=== PATIENT | female | born 1945 | race Caucasian/White ===

== ENCOUNTER 2016-04-02 13:06 | Emergency (ER) | payer BC ==
[~2016-04-02] VITALS: Wt 82.0 kg
[~2016-04-02 13:06] MED LIST: ASPI-664 PO; DOCU-144 PO; HYDR-762 PO; IBUP800T25 PO; ICNREG IJ; LEVO50TA64 PO; LOSA100T7 PO; NEPH PO; NIFE60TA12 PO; NPH,100V SC; ONDA4TAB8 PO; PANT40TA4 PO; SEVE800T7 PO
[2016-04-02] MEDS ORDERED: IBUP400T22 PO (13:55)
[2016-04-02] MEDS ORDERED: AZIT250T94 PO (13:55)
--- NOTE | 2016-04-02 14:03 | ERD ---
ER Documentation Chief Complaint Date/Time DATE: 04/02/16 TIME: 13:56 Chief Complaint FEVER COUGH AND CONGESTION AND SORE THROAT FOR 2 MOS.NOT BETTER HPI Patient is a 70-year-old female with a past medical history of hypertension, diabetes, hypothyroidism, hyperlipidemia who presents to the emergency department with a cough, nasal congestion, sore throat 2 months. She states that her cough is dry in nature. Patient states she saw her primary care physician 4 days ago and was prescribed Robitussin with codeine. Patient states that this cough syrup is not alleviating her symptoms. Patient also reports intermittent fevers. She states that she had a temperature max 102 Fahrenheit yesterday. Patient is not taking any antipyretics. Patient reports back pain and chest wall pain with coughing only. Patient denies any chest pain at rest. He denies any shortness of breath, diaphoresis, arm pain, jaw pain, loss of consciousness. Patient denies any ear pain, abdominal pain, nausea, vomiting. No sick contacts. No recent travel. ROS All systems reviewed and are negative except as per history of present illness. Medications Home Meds Active Scripts Benzonatate* (Tessalon Perle*) 100 Mg Capsule, 100 MG PO Q8H Y for COUGH, #20 CAP Prov:CESAR CARLTON PA-C 04/02/16 Ibuprofen* (Motrin*) 400 Mg Tab, 400 MG PO Q6, #30 TAB Prov:CESAR CARLTON PA-C 04/02/16 Azithromycin* (Zithromax*) 250 Mg Tablet, 250 MG PO .ZPACK DIRECTED, #6 TAB TAKE 500 MG (2 TABS) THE FIRST DAY THEN 250 MG (1 TAB) DAYS 2-5 Prov:CESAR CARLTON PA-C 04/02/16 Ondansetron Hcl* (Zofran*) 4 Mg Tablet, 4 MG PO Q6H for NAUSEA AND/OR VOMITING, #30 TAB Prov:WILLIAM NASCIMENTO 01/30/15 Hydrocodone Bit-Acetaminophen* ([place]*) 10-325 Mg Tablet, 1 TAB PO Q6 Y for PAIN , #10 TAB Prov:VERNA GOTTLIEB MD 11/10/14 Ibuprofen* (Motrin*) 800 Mg Tab, 800 MG PO Q6H Y for PAIN AND OR ELEVATED TEMP, #30 TAB Prov:BERNARD SALINAS MD 11/06/14 Reported Medications Pantoprazole* (Pantoprazole*) 40 Mg Tablet.dr, 40 MG PO DAILY, TAB 01/30/15 Losartan Potassium* (Losartan Potassium*) 100 Mg Tablet, 100 MG PO DAILY, TAB 01/30/15 Nph, Human Insulin Isophane (Humulin N) 100 Units/Ml Vial, 11 UNIT SC HS, VIAL 10/01/14 Nph, Human Insulin Isophane (Humulin N) 100 Units/Ml Vial, 22 UNIT SC AC BREAKFAST, VIAL 10/01/14 Nifedipine* (Nifedical XL*) 60 Mg/Bottle Tab.osm.24, 60 MG PO DAILY, TAB 10/01/14 Sevelamer Carbonate* (Renvela*) 800 Mg Tablet, 0.8 GM PO WITH MEALS, TAB 10/01/14 Multivit/Ca Carb/B Cmplx/Fa* ([place]-Mike*) 1 Tab Tab, 1 TAB PO DAILY, TAB 10/01/14 Insulin Human Regular* (Insulin Human Regular (NICU Use Only)*) 1 Unit/Ml Soln, 5 UNIT IJ AC LUNCH 04/19/13 Aspirin* (Aspirin* EC) 81 Mg Tablet.dr, 81 MG PO DAILY 04/19/13 Levothyroxine Sodium (Levothroid) 50 Mcg Tablet, 50 MCG PO DAILY 04/19/13 Docusate Sodium* (Colace*) 100 Mg Capsule, 100 MG PO Q12 04/19/13 Allergies Allergies: Coded Allergies: Heparin Analogues (Verified Allergy, Unknown, 04/02/16) PMhx/Soc History of Surgery: Yes (Thyroid (half), Lumpectomy R breast, Fistula L arm) Anesthesia Reaction: No Hx Neurological Disorder: No Hx Respiratory Disorders: No Hx Cardiac Disorders: No Hx Psychiatric Problems: No Hx Miscellaneous Medical Probl: Yes (ESRD, Dialysis (T, Th, Sat), HTN, DM II, Hypothyroid, Hypercholesteremia) Hx Alcohol Use: No Hx Substance Use: No Hx Tobacco Use: No FmHx Family History: No diabetes Physical Exam Vitals Vital Signs Date Time Temp Pulse Resp B/P Pulse Ox O2 Delivery O2 Flow Rate FiO2 04/02/16 15:23 98.2 78 20 129/76 100 Room Air 04/02/16 13:19 98.8 81 22 122/59 95 Physical Exam GENERAL: Well-developed, well-nourished female. Appears in no acute distress. HEAD: Normocephalic, atraumatic. No deformities or ecchymosis. EYE: Pupils equal, round, and reactive to light. EOMs intact. No conjunctival erythema. No eye discharge. ENT: External ear without any masses or tenderness. Auditory canals clear bilaterally. TM visualized bilaterally, non-erythematous, non-bulging. Nasal mucosa pink with no discharge. Oropharynx is pink without any tonsillar erythema or exudates. No uvula deviation. No kissing tonsils. NECK: Supple. No meningismus. Normal ROM of the neck. CHEST: Tender to palpation of left chest wall. Pain is reproducible with palpation. LUNG: Clear to auscultation bilaterally. No rhonchi, wheezing, rales or coarse breath sounds. HEART: Regular rate and rhythm. No murmurs, rubs or gallops. ABDOMEN: Soft, nontender, and nondistended. Positive bowel sounds in all four quadrants. No rebound tenderness, no guarding. (-) McBurney's point tenderness. No CVA tenderness. BACK: No midline tenderness. EXTREMITES: Equal pulses bilaterally. No peripheral clubbing, cyanosis or edema. No unilateral leg swelling. NEUROLOGIC: Alert and oriented to person, place and time. Moving all four extremities. 5/5 strength in all extremities. Normal speech. Steady gait. SKIN: Normal color. Warm and dry. No rashes or lesions. Procedures/MDM ED COURSE: The patient was stable throughout ED course. I kept the patient and/or family informed of laboratory and diagnostic imaging results throughout the ED course. EKG: Read by Dr. Kelley, attending physician. EKG shows Accelerated junctional rhythm with a rate of 78 bpm. Right axis deviation. DIAGNOSTIC IMAGING: Read by radiologist. [place] [id number] Radiology Main Line: [phone] DIAGNOSTIC IMAGING REPORT Patient: VALERIA MOTLEY : 1945 Age: 70 Sex: F MR #: [id number] DOS: 04/02/16 1404 Ordering MD: CESAR CARLTON PA-C Location: [facility] Room/Bed: PROCEDURE: CHEST 1VW CLINICAL INDICATION: Chest pain TECHNIQUE: Single frontal view of the chest was obtained COMPARISON: 03/22/2013 FINDINGS: The cardiac size is mildly enlarged, stable. Aortic vascular calcifications are demonstrated. There is no pulmonary vascular congestion. The lungs are clear. No consolidation, effusion, or pneumothorax. Mild degenerative changes of the visualized osseous structures are visualized. IMPRESSION: 1. No acute cardiopulmonary process. 2. Atherosclerosis stable cardiomegaly. RPTAT:PP .Jani Juarez MD, MD Date Time Electronically viewed and signed by .Jani Juarez MD, on 04/02/2016 14:45 .V/ CC: CESAR CARLTON PA-C MEDICAL DECISION MAKING: This is a 70-year-old female who presents with a dry cough, nasal congestion, throat pain, intermittent fevers x 2 months. Vital signs were reviewed. Patient was afebrile. Patient was not hypoxic. ENT exam was normal. Lung exam is normal. Abdominal exam is normal. Chest x-ray showed No acute cardiopulmonary process. Atherosclerosis stable cardiomegaly. Given these findings, the patient's presentation is most consistent with bronchitis. It is possible that the patient's symptoms may have been improved intermittently, and now she has picked up another viral syndrome including viral URI or influenza. Given that patient has had symptoms now for 2 months, I will treat her with antibiotics empirically. I have a much lower clinical concern for pneumonia, meningitis, sinusitis, otitis externa, acute otitis media, strep pharyngitis, epiglottitis or peritonsillar abscess. PRESCRIPTIONS: Z-delmis, Ibuprofen DISCHARGE: At this time, patient is stable for discharge and outpatient management. Supportive therapies such as OTC throat lozenges, salt water gurgles, popsicles and jello discussed. I have instructed the patient to follow-up with his/her primary care physician in 1-2 days. I have instructed the patient to promptly return to the ER for any new or worsening symptoms including increased pain, swelling, fever, nausea, vomiting, weakness or difficulty breathing. The patient and/or family expressed understanding of and agreement with this plan. All questions were answered. Home care instructions were provided. Departure Diagnosis: Primary Impression: Bronchitis Condition: Stable Patient Instructions: Bronchitis, Antiobiotic Treatment (Adult) Additional Instructions: Llame al doctor MAANA y lawrence beena MATIAS PARA DENTRO DE 1-2 MONTANEZ.Dgale a la secretaria que nosotros le instruimos hacer esta matias.Avise o llame si smart condicin se empeora antes de la matias. Regresa aqui si peor o no mejor. CESAR CARLTON PA-C Apr 02, 2016 14:03
--- NOTE | 2016-04-02 14:45 | RADRPT ---
PROCEDURE: CHEST 1VW CLINICAL INDICATION: Chest pain TECHNIQUE: Single frontal view of the chest was obtained COMPARISON: 03/22/2013 FINDINGS: The cardiac size is mildly enlarged, stable. Aortic vascular calcifications are demonstrated. There is no pulmonary vascular congestion. The lungs are clear. No consolidation, effusion, or pneumothorax. Mild degenerative changes of the visualized osseous structures are visualized. IMPRESSION: 1. No acute cardiopulmonary process. 2. Atherosclerosis stable cardiomegaly. RPTAT:PP .Jani Juarez MD, Date Time Electronically viewed and signed by .Jani Juarez MD, on 04/02/2016 14:45 .V/
[2016-04-02] MEDS ORDERED: BENZ100C70 PO (14:58)
[2016-04-02 15:23] VITALS: BP 129/76; PULSE 78; RESP 20; TEMP 98.2
== END 2016-04-02 15:24 | disposition home or self-care (01) ==
LOC: FTE 13:06
DX: J20.9 Acute bronchitis, unspecified (principal); E11.9 Type 2 diabetes mellitus without complications; I12.0 Hypertensive chronic kidney disease with stage 5 chronic kidney disease or end stage renal disease; N18.6 End stage renal disease; E03.9 Hypothyroidism, unspecified; Z79.4 Long term (current) use of insulin; Z79.82 Long term (current) use of aspirin; Z99.2 Dependence on renal dialysis
CPT/HCPCS: 71010

== ENCOUNTER 2016-05-06 16:47 | Emergency (ER) | payer BC, MEDICAID ==
[~2016-05-06] VITALS: Ht 160 cm; Wt 79.0 kg
[~2016-05-06 16:47] MED LIST changes: +AZIT250T94 PO; +BENZ100C70 PO; +IBUP400T22 PO
[2016-05-06 17:20] VITALS: Ht 160 cm; Wt 79.0 kg
[2016-05-06] MEDS ORDERED: ONDANSETRON (ODT) 4 MG TAB ODT STA (17:51)
[2016-05-06] MEDS ORDERED: HYDROCODONE/APAP (10/325) TAB PO ONE (18:00)
--- NOTE | 2016-05-06 18:23 | RADRPT ---
PROCEDURE: XR Chest. CLINICAL INDICATION: Cough. TECHNIQUE: Single frontal view. COMPARISON: 04/02/2016. FINDINGS: The lungs are clear. The heart is enlarged. There is calcification in the aorta consistent with atherosclerosis. There is no pleural effusion. There is no pneumothorax. IMPRESSION: 1. Cardiomegaly and atherosclerosis. 2. Clear lungs. RPTAT: QQ .Tawanda Dubois MD, MD Date Time Electronically viewed and signed by .Tawanda Dubois MD, MD on 05/06/2016 18:23 .R/
--- NOTE | 2016-05-06 18:25 | RADRPT ---
PROCEDURE: XR Left Hip. CLINICAL INDICATION: Left hip pain. TECHNIQUE: Two views. Frontal and lateral. COMPARISON: No prior studies are available for comparison. FINDINGS: This is a limited study due to dense overlying soft tissues. There is no obvious displaced hip fracture and there is no dislocation. There is a fracture of the l eft inferior pubic ramus, age indeterminate. There are degenerative changes of the left hip with osteophytes noted. There is no lytic or blastic lesion. There is no radiopaque foreign body. IMPRESSION: 1. Limited study. 2. No obvious displaced hip fracture. 3. Fracture of the inferior pubic ramus, age indeterminate. Correlation with CT scan or MRI advised . 4. No dislocation. 5. Degenerative changes. RPTAT: QQ .Tawanda Dubois MD, Date Time Electronically viewed and signed by .Tawanda Dubois MD, on 05/06/2016 18:25 .R/
--- NOTE | 2016-05-06 18:51 | RADRPT ---
PROCEDURE: CT Brain without contrast. CLINICAL INDICATION: Trauma due to a fall. Headache. TECHNIQUE: A CT of the brain without contrast was performed utilizing axial sections from the skul l base through the vertex. The patient was scanned without intravenous contrast enhancement. Sagitta l and coronal reformatted images were obtained using the data from the axial images. Total exam DLP is 720.23 mGy-cm. CTDIvol is 45.01 mGy. One or more of the following dose reduction techniques were used: Automated exposure control, adjustment of the mA and/or kV according to patient size, use of iterative reconstruction technique. COMPARISON: None available. FINDINGS: There is normal tinsley-white matter differentiation. There is enlargement of the ventricles and subarachnoid spaces consistent with atrophy. There is decreased attenuation of the periventricular white matter consistent with microangiopathic ischemic change. There is no intracranial hemorrhage or space-occupying lesion. There are vascular calcifications consistent with atherosclerosis. There is no skull fracture or lytic lesion. There is a large right posterior parietal scalp hematom a measuring 4.5 cm in maximal dimension. IMPRESSION: 1. Atrophy. 2. Microangiopathic ischemic change. 3. Atherosclerosis. 4. No intracranial hemorrhage. 5. Large right posterior parietal scalp hematoma. 6. Otherwise unremarkable noncontrast CT scan of the brain. RPTAT: QQ .Tawanda Dubois MD, Date Time Electronically viewed and signed by .Tawanda Dubois MD, on 05/06/2016 18:50 .R/
[2016-05-06] MEDS ORDERED: METO50TA16 PO (19:45)
[2016-05-06] MEDS ORDERED: CLON-379 PO (19:46)
[2016-05-06] MEDS ORDERED: NIFE90TA11 PO (19:46)
[2016-05-06] MEDS ORDERED: HYDR-902 PO (19:58)
[2016-05-06 20:03] VITALS: BP 169/75; PULSE 71; RESP 18; TEMP 98.6
--- NOTE | 2016-05-06 20:43 | ERD ---
ER Documentation Chief Complaint Date/Time DATE: 05/06/16 TIME: 20:40 Chief Complaint FELL LAST TUESDAY SECONDARY TO SYNCOPE,OCCIPITAL AREA BUMP,LEFT HIP PAIN. HPI Patient is a 70-year-old female with dialysis, diabetes, and hypertension who presents with a fall. The patient fell on Tuesday. She had a bump to the back of her head. She now has a headache as well. She also has hip pain for 1 year ago. She had a cough as well. She fell on Tuesday when she was mopping a floor and it was a slip and fall. She is on 81 mg aspirin daily. She took Tylenol for pain. She has not called the primary doctor as of yet. Her primary doctor is Dr. Godoy. She had a full dialysis today. Upon review of old medical records this is the patient's seventh visit to the ER since 2013. ROS All systems reviewed and are negative except as per history of present illness. Medications Home Meds Active Scripts Hydrocodone/Acetaminophen ([place] 10-325 Tablet) 1 Each Tablet, 1 TAB PO Q6H Y for PAIN, #7 TAB Prov:BESSY MARIEE MD 05/06/16 Reported Medications Clonidine Hcl* (Clonidine Hcl*) 0.1 Mg Tab, 0.1 MG PO Q6 Y for PRN, TAB 05/06/16 Nifedipine* (Nifedipine ER*) 90 Mg Tablet.er, 90 MG PO DAILY, TAB 05/06/16 Metoprolol Succinate* (Toprol XL*) 50 Mg Tab.er.24h, 50 MG PO QPM, #30 TAB 05/06/16 Losartan Potassium* (Losartan Potassium*) 100 Mg Tablet, 100 MG PO DAILY, TAB 01/30/15 Nph, Human Insulin Isophane (Humulin N) 100 Units/Ml Vial, 13 UNIT SC HS, VIAL 10/01/14 Multivit/Ca Carb/B Cmplx/Fa* ([place]vern-Mike*) 1 Tab Tab, 1 TAB PO DAILY, TAB 10/01/14 Insulin Human Regular* (Insulin Human Regular (NICU Use Only)*) 1 Unit/Ml Soln, 3 UNIT IJ AC LUNCH DINNER 04/19/13 Aspirin* (Aspirin* EC) 81 Mg Tablet.dr, 81 MG PO DAILY 04/19/13 Levothyroxine Sodium (Levothroid) 50 Mcg Tablet, 50 MCG PO DAILY 04/19/13 Docusate Sodium* (Colace*) 100 Mg Capsule, 100 MG PO DAILY 04/19/13 Discontinued Reported Medications Pantoprazole* (Pantoprazole*) 40 Mg Tablet.dr, 40 MG PO DAILY, TAB 01/30/15 Nph, Human Insulin Isophane (Humulin N) 100 Units/Ml Vial, 22 UNIT SC AC BREAKFAST, VIAL 10/01/14 Nifedipine* (Nifedical XL*) 60 Mg/Bottle Tab.osm.24, 60 MG PO DAILY, TAB 10/01/14 Sevelamer Carbonate* (Renvela*) 800 Mg Tablet, 0.8 GM PO WITH MEALS, TAB 10/01/14 Discontinued Scripts Benzonatate* (Tessalon Perle*) 100 Mg Capsule, 100 MG PO Q8H Y for COUGH, #20 CAP Prov:CESAR CARLTON PA-C 04/02/16 Ibuprofen* (Motrin*) 400 Mg Tab, 400 MG PO Q6, #30 TAB Prov:CESAR CARLTON PA-C 04/02/16 Azithromycin* (Zithromax*) 250 Mg Tablet, 250 MG PO .ZPACK DIRECTED, #6 TAB TAKE 500 MG (2 TABS) THE FIRST DAY THEN 250 MG (1 TAB) DAYS 2-5 Prov:CESAR CARLTON PA-C 04/02/16 Ondansetron Hcl* (Zofran*) 4 Mg Tablet, 4 MG PO Q6H for NAUSEA AND/OR VOMITING, #30 TAB Prov:WILLIAM NASCIMENTO 01/30/15 Hydrocodone Bit-Acetaminophen* ([place]*) 10-325 Mg Tablet, 1 TAB PO Q6 Y for PAIN , #10 TAB Prov:VERNA GOTTLIEB MD 11/10/14 Ibuprofen* (Motrin*) 800 Mg Tab, 800 MG PO Q6H Y for PAIN AND OR ELEVATED TEMP, #30 TAB Prov:BERNARD SALINAS MD 11/06/14 Allergies Allergies: Coded Allergies: Heparin Analogues (Verified Allergy, Unknown, 05/06/16) PMhx/Soc History of Surgery: Yes (Thyroid (half), Lumpectomy R breast, Fistula L arm) Anesthesia Reaction: No Hx Neurological Disorder: No Hx Respiratory Disorders: No Hx Cardiac Disorders: No Hx Psychiatric Problems: No Hx Miscellaneous Medical Probl: Yes (ESRD, Dialysis (T, Th, Sat), HTN, DM II, Hypothyroid, Hypercholesteremia) Hx Alcohol Use: No Hx Substance Use: No Hx Tobacco Use: No Smoking Status: Never smoker FmHx Family History: No diabetes Physical Exam Vitals Vital Signs Date Time Temp Pulse Resp B/P Pulse Ox O2 Delivery O2 Flow Rate FiO2 05/06/16 20:03 98.6 71 18 169/75 98 Room Air 05/06/16 17:20 98.6 76 18 161/71 98 Physical Exam Const: No acute distress Head: Hematoma to the posterior scalp with tenderness to palpation Eyes: Normal Conjunctiva ENT: Normal External Ears, Nose and Mouth. Neck: Full range of motion..~ No meningismus. Resp: Clear to auscultation bilaterally Cardio: Regular rate and rhythm, no murmurs Abd: Soft, non tender, non distended. Normal bowel sounds Skin: No petechiae or rashes Back: No midline or flank tenderness Ext: No cyanosis, or edema Neur: Awake and alert Psych: Normal Mood and Affect Results 24 hrs Current Medications Medications (Trade) Dose Ordered Sig/Leland Route PRN Reason Start Time Stop Time Status Last Admin Dose Admin Acetaminophen/ Hydrocodone Bitart ([place] (10/325)) 1 tab ONCE ONCE PO 05/06/16 18:00 05/06/16 18:01 DC 05/06/16 18:01 Ondansetron HCl (Zofran Odt) 4 mg ONCE STAT ODT 05/06/16 17:51 05/06/16 17:53 DC 05/06/16 18:01 Procedures/MDM CT brain negative per radiology. X-ray of the hip negative for acute fracture per radiology. Chest x-ray shows no pneumonia or pneumothorax per radiology. Patient is a 70-year-old female who presents after a slip and fall. CT brain shows no intracranial hemorrhage or skull fracture. I believe she has a concussion. She also has a hematoma of the scalp. There was no syncope. X- ray of the hip shows no acute fracture that would require surgery. Chest x-ray shows no pneumonia or pneumothorax. At this point I believe outpatient management is appropriate. The patient will need to follow-up closely with her primary doctor within 24-48 hours. She will be given a short course of [place] for pain. She can return for any worsening symptoms. At this point I doubt intracranial hemorrhage, mass, or meningitis. Departure Diagnosis: Primary Impression: Hematoma Additional Impressions: Concussion Encounter type: initial encounter Loss of consciousness presence/duration: without LOC Qualified Code: S06.0X0A - Concussion, without loss of consciousness, initial encounter Fall Encounter type: initial encounter Qualified Code: W19.XXXA - Fall, initial encounter Condition: Fair Patient Instructions: After a Concussion, Fall, Mechanical Additional Instructions: Llame al doctor nombrado abajo (Referral Sources) MAANA y lawrence beena MATIAS PARA DENTRO DE BEENA SEMANA. Dgale a la secretaria que nosotros le instruimos hacer esta matias.Avise o llame si smart condicin se empeora antes de la matias. BESSY MARIEE MD May 06, 2016 20:43
== END 2016-05-06 20:05 | disposition home or self-care (01) ==
LOC: E/R 16:47
DX: S00.03XA Contusion of scalp, initial encounter (principal); S06.0X0A Concussion without loss of consciousness, initial encounter; I12.0 Hypertensive chronic kidney disease with stage 5 chronic kidney disease or end stage renal disease; N18.6 End stage renal disease; E11.9 Type 2 diabetes mellitus without complications; E03.9 Hypothyroidism, unspecified; W01.0XXA Fall on same level from slipping, tripping and stumbling without subsequent striking against object, initial encounter; Y92.9 Unspecified place or not applicable; Z79.82 Long term (current) use of aspirin; Z99.2 Dependence on renal dialysis; Z79.4 Long term (current) use of insulin
CPT/HCPCS: 70450; 71010; 73510; Z7610

== ENCOUNTER 2016-06-10 16:01 | Emergency (ER) | payer SELFPAY ==
[~2016-06-10] VITALS: Wt 76.5 kg
[~2016-06-10 16:01] MED LIST changes: -AZIT250T94 PO; -BENZ100C70 PO; +CLON-379 PO; -HYDR-762 PO; +HYDR-902 PO; -IBUP400T22 PO; -IBUP800T25 PO; +METO50TA16 PO; -NIFE60TA12 PO; +NIFE90TA11 PO; -ONDA4TAB8 PO; -PANT40TA4 PO; -SEVE800T7 PO
== END 2016-06-11 01:37 | disposition left against medical advice (07) ==
LOC: E/R 16:01
DX: Z53.21 Procedure and treatment not carried out due to patient leaving prior to being seen by health care provider (principal)

== ENCOUNTER 2016-06-14 17:08 | Emergency (ER) | payer SELFPAY ==
[~2016-06-14] VITALS: Ht 152.4 cm; Wt 78.5 kg
[2016-06-14 17:25] VITALS: Ht 152.4 cm; Wt 78.5 kg
== END 2016-06-14 22:16 | disposition left against medical advice (07) ==
LOC: E/R 17:08
DX: Z53.21 Procedure and treatment not carried out due to patient leaving prior to being seen by health care provider (principal)

== ENCOUNTER 2016-06-16 09:25 | Inpatient (IN) | payer BC ==
[~2016-06-16] VITALS: Ht 154.9 cm; Wt 78.3 kg
[2016-06-16] MEDS ORDERED: ONDANSETRON 4 MG INJ IV STA (09:54)
[2016-06-16] MEDS ORDERED: SOD CHLORIDE 0.9% 500 ML IV STA (09:54)
[2016-06-16] MEDS ORDERED: morphine 2 MG INJ IV STA (09:54)
[2016-06-16 11:00] LABS: ADD SCAN DIFF NO
[2016-06-16 11:09] LABS: BASOPHIL # 0.1 10^3/ul (0.0-0.1); BASOPHILS % 0.7 % (0.0-2.0); EOSINOPHILS # 1.4 10^3/ul (0.0-0.5); EOSINOPHILS % 17.7 % (0.0-7.0); HEMATOCRIT 34.1 % (37.0-47.0); HEMOGLOBIN 11.2 g/dl (12.0-16.0); LYMPHOCYTES # 1.8 10^3/ul (0.8-2.9); LYMPHOCYTES % 22.8 % (15.0-51.0); MEAN CORPUSCULAR HEMOGLOBIN 30.6 pg (29.0-33.0); MEAN CORPUSCULAR HGB CONC 32.8 g/dl (32.0-37.0); MEAN CORPUSCULAR VOLUME 93.2 fl (82.0-101.0); MEAN PLATELET VOLUME 9.2 fl (7.4-10.4); MONOCYTE # 0.4 10^3/ul (0.3-0.9); MONOCYTES % 5.6 % (0.0-11.0); NEUTROPHIL # 4.1 10^3/ul (1.6-7.5); NEUTROPHILS % 52.9 % (39.0-77.0); PLATELET COUNT 205 10^3/UL (140-415); RED BLOOD COUNT 3.66 10^6/ul (4.20-5.40); RED CELL DISTRIBUTION WIDTH 15.2 % (11.5-14.5); WHITE BLOOD COUNT 7.7 10^3/ul (4.8-10.8)
[2016-06-16 11:20] LABS: ALBUMIN 4.3 g/dl (3.3-4.9)
[2016-06-16 11:21] LABS: CHLORIDE 90 mmol/L (97-110); POTASSIUM 4.8 mmol/L (3.5-5.1); SODIUM 133 mmol/L (135-144)
[2016-06-16 11:23] LABS: ANION GAP 22 (8-16); BILIRUBIN,INDIRECT 0.2 mg/dl (0-1.1); BILIRUBIN,TOTAL 0.2 mg/dl (0.2-1.3); CARBON DIOXIDE 26 mmol/L (21-31); CREATININE 8.08 mg/dl (0.44-1.00)
[2016-06-16 11:24] LABS: ALANINE AMINOTRANSFERASE 15 IU/L (13-69); ALBUMIN/GLOBULIN RATIO 1.13; ALKALINE PHOSPHATASE 82 IU/L (42-121); ASPARTATE AMINO TRANSFERASE 28 IU/L (15-46); BLOOD UREA NITROGEN 44 mg/dl (7-20); CALCIUM 9.6 mg/dl (8.4-10.2); GLUCOSE 176 mg/dl (70-220); INR 1.03; PARTIAL THROMBOPLASTIN TIME 29.9 Sec (25.0-35.0); PROTIME 13.5 Sec (12.2-14.2); PT RATIO 1.1; TOTAL PROTEIN 8.1 g/dl (6.1-8.1)
[2016-06-16 11:36] LABS: TROPONIN-I < 0.012 ng/ml (0.00-0.12)
[2016-06-16] MEDS ORDERED: LABETALOL HCL 20MG INJ IV ONE (12:30)
--- NOTE | 2016-06-16 12:43 | RADRPT ---
PROCEDURE: CT Abdomen and Pelvis without contrast. CLINICAL INDICATION: Upper abdominal pain. TECHNIQUE: CT scan of the abdomen and pelvis without contrast was performed on a multidetector hig h-resolution CT scanner. The patient was scanned without intravenous contrast. Coronal and sagittal reformatted images were obtained from the axial source images. Images were reviewed on a high-resol [employer] PACS workstation. The total exam CTDI equals 20.70 mGy and the total exam DLP equals 1222.35 m Gy-cm. One or more of the following dose reduction techniques were used: Automated exposure control. Adjustment of the mA and/or kV according to patient size. Use of iterative reconstruction technique. COMPARISON: CT abdomen and pelvis 01/30/2015 FINDINGS: CT abdomen: The lung bases are clear. There is mild cardiomegaly with mild circumferential pericardial effusion . The liver is normal in size and density without focal mass or intrahepatic biliary dilatation. T he spleen is normal in size and homogeneous in density. The stomach is partially collapsed, but is grossly unremarkable. The pancreas as visualized is normal. The gallbladder is unremarkable. There is no evidence for biliary dilatation. The adrenal glands are symmetric and normal. There is sign ificant atrophy of bilateral kidneys. No hydronephrosis. There is approximately 1.4 cm cyst mid po le right kidney. The aorta is of normal caliber. There is no retroperitoneal lymphadenopathy. The dennys hepatis reg ion is clear. The bowel and mesentery, as visualized, are equally unremarkable. Scattered punctate calcifications are again identified throughout the mesentery likely related to old granulomatous dis ease. CT pelvis: The small bowel loops situated within the pelvis are unremarkable. The pelvic organs are normal. T he pelvic sidewalls and inguinal regions are clear. The sigmoid colon and rectum are unremarkable. No mass, lymphadenopathy, or free fluid is seen. No acute inflammation is seen. There is a promine nt Schmorl's node in the inferior endplate of L3. The surrounding osseous structures are remarkable for degenerative spondylosis of the spine. there is hemangioma of T10 vertebral body. No osteolyti c or osteoblastic lesion is detected. There is old healed fracture of the inferior left pubic ramus. IMPRESSION: 1. No mass, lymphadenopathy, or focal acute inflammatory process is identified. 2. Atrophic bilateral kidneys with no hydronephrosis. 3. Mild cardiomegaly with pericardial effusion, increased compared to prior. RPTAT: BB .Marleny Dey MD, MD Date Time Electronically viewed and signed by .Marleny Dey MD, MD on 06/16/2016 12:42 .O/
--- NOTE | 2016-06-16 13:18 | RADRPT ---
PROCEDURE: Chest Radiograph. CLINICAL INDICATION: Epigastric pain. TECHNIQUE: Single frontal chest radiograph. COMPARISON: Chest radiograph 05/06/2016 FINDINGS: The heart is magnified and likely enlarged. Lung volumes are decreased in there is moderate basilar atelectasis. No confluent or lobar infiltrate is seen. There is no pleural effusion. The bones are intact. IMPRESSION: 1. Low lung volumes with basilar atelectasis. 2. Cardiomegaly. RPTAT: KK .Jersey Spencer MD, MD Date Time Electronically viewed and signed by .Jersey Spencer MD, on 06/16/2016 13:18 .B/
--- NOTE | 2016-06-16 13:19 | RADRPT ---
PROCEDURE: Left foot series. CLINICAL INDICATION: Left foot pain after fall TECHNIQUE: Three views of the left foot are available for review. COMPARISON: None available FINDINGS: There is normal mineralization and alignment of the bones of the left foot. Lisfranc's joint appear s intact. There is a mild to the displaced fracture of the base of the second proximal phalanx. No other fractures are identified.. Joint spaces are well maintained. No osteophytes or erosions are seen. There is mild diffuse soft tissue swelling . IMPRESSION: 1. Second proximal phalanx fracture. 2. Diffuse soft tissue swelling. RPTAT: KK .Jersey Spencer MD, MD Date Time Electronically viewed and signed by .Jersey Spencer MD, on 06/16/2016 13:19 .B/
[2016-06-16] MEDS ORDERED: hydrALAzine 20 MG INJ IV ONE (15:30)
--- NOTE | 2016-06-16 15:51 | ERA ---
ER Documentation Chief Complaint Date/Time DATE: 06/16/16 TIME: 15:49 Chief Complaint abd pain x 1 week , lt foot pain s/p fall on tuesday HPI This 70-year-old female presents with epigastric pain for one week. Pain is higher up on her abdomen or lower chest area. It is not made much worse by palpation. Is described as a deep pain that does not radiate. She denies shortness of breath occasionally does have nausea. She also complains of left foot pain worse in her second toe after she fell 2 days ago. There is now bruising on the underside of her forefoot. It hurts when she walks. ROS All systems reviewed and are negative except as per history of present illness. Medications Home Meds Active Scripts Hydrocodone/Acetaminophen ([place] 10-325 Tablet) 1 Each Tablet, 1 TAB PO Q6H Y for PAIN, #7 TAB Prov:BESSY MARIEE MD 05/06/16 Reported Medications Clonidine Hcl* (Clonidine Hcl*) 0.1 Mg Tab, 0.1 MG PO Q6 Y for PRN, TAB 05/06/16 Nifedipine* (Nifedipine ER*) 90 Mg Tablet.er, 90 MG PO DAILY, TAB 05/06/16 Metoprolol Succinate* (Toprol XL*) 50 Mg Tab.er.24h, 50 MG PO QPM, #30 TAB 05/06/16 Losartan Potassium* (Losartan Potassium*) 100 Mg Tablet, 100 MG PO DAILY, TAB 01/30/15 Nph, Human Insulin Isophane (Humulin N) 100 Units/Ml Vial, 13 UNIT SC HS, VIAL 10/01/14 Multivit/Ca Carb/B Cmplx/Fa* ([place]-Mike*) 1 Tab Tab, 1 TAB PO DAILY, TAB 10/01/14 Insulin Human Regular* (Insulin Human Regular (NICU Use Only)*) 1 Unit/Ml Soln, 3 UNIT IJ AC LUNCH DINNER 04/19/13 Aspirin* (Aspirin* EC) 81 Mg Tablet.dr, 81 MG PO DAILY 04/19/13 Levothyroxine Sodium (Levothroid) 50 Mcg Tablet, 50 MCG PO DAILY 04/19/13 Docusate Sodium* (Colace*) 100 Mg Capsule, 100 MG PO DAILY 04/19/13 Allergies Allergies: Coded Allergies: Heparin Analogues (Verified Allergy, Unknown, 05/06/16) PMhx/Soc History of Surgery: Yes (Thyroid (half), Lumpectomy R breast, Fistula L arm) Anesthesia Reaction: No Hx Neurological Disorder: No (HYPOTHYROID) Hx Respiratory Disorders: No Hx Cardiac Disorders: Yes (HTN, DM, HIGH CHOLESTEROL) Hx Psychiatric Problems: No Hx Miscellaneous Medical Probl: Yes (ESRD, Dialysis (T, Th, Sat)) Hx Alcohol Use: No Hx Substance Use: No Hx Tobacco Use: No Smoking Status: Never smoker Physical Exam Vitals Vital Signs Date Time Temp Pulse Resp B/P Pulse Ox O2 Delivery O2 Flow Rate FiO2 06/16/16 15:39 70 18 229/99 97 Room Air 06/16/16 13:37 64 18 241/105 95 Room Air 06/16/16 09:28 98.2 69 18 239/100 97 Physical Exam Const: [] No distress Head: Atraumatic Eyes: Normal Conjunctiva ENT: Normal External Ears, Nose and Mouth. Neck: Full range of motion..~ No meningismus. Resp: Clear to auscultation bilaterally Cardio: Regular rate and rhythm, no murmurs Abd: Soft, non tender, non distended. Normal bowel sounds Skin: No petechiae or rashes Back: No midline or flank tenderness Ext: No cyanosis, or edema Neur: Awake and alert and oriented 3, no focal deficits Psych: Normal Mood and Affect Result Diagram: 06/16/16 1031 06/16/16 1031 Results 24 hrs Laboratory Tests Test 06/16/16 10:31 06/16/16 10:54 White Blood Count 7.710^3/ul Red Blood Count 3.6610^6/ul Hemoglobin 11.2g/dl Hematocrit 34.1% Mean Corpuscular Volume 93.2fl Mean Corpuscular Hemoglobin 30.6pg Mean Corpuscular Hemoglobin Concent 32.8g/dl Red Cell Distribution Width 15.2% Platelet Count 49577^3/UL Mean Platelet Volume 9.2fl Neutrophils % 52.9% Lymphocytes % 22.8% Monocytes % 5.6% Eosinophils % 17.7% Basophils % 0.7% Nucleated Red Blood Cells % 0.0/100WBC Neutrophils # 4.110^3/ul Lymphocytes # 1.810^3/ul Monocytes # 0.410^3/ul Eosinophils # 1.410^3/ul Basophils # 0.110^3/ul Nucleated Red Blood Cells # 0.010^3/ul Prothrombin Time 13.5Sec Prothrombin Time Ratio 1.1 INR International Normalized Ratio 1.03 Activated Partial Thromboplast Time 29.9Sec Sodium Level 133mmol/L Potassium Level 4.8mmol/L Chloride Level 90mmol/L Carbon Dioxide Level 26mmol/L Anion Gap 22 Blood Urea Nitrogen 44mg/dl Creatinine 8.08mg/dl Glucose Level 176mg/dl Lactic Acid Level 1.5mmol/L Calcium Level 9.6mg/dl Total Bilirubin 0.2mg/dl Direct Bilirubin 0.00mg/dl Indirect Bilirubin 0.2mg/dl Aspartate Amino Transf (AST/SGOT) 28IU/L Alanine Aminotransferase (ALT/SGPT) 15IU/L Alkaline Phosphatase 82IU/L Troponin I < 0.012ng/ml Total Protein 8.1g/dl Albumin 4.3g/dl Globulin 3.80g/dl Albumin/Globulin Ratio 1.13 Lipase 53U/L B-Type Natriuretic Peptide [id number]/ML Current Medications Medications (Trade) Dose Ordered Sig/Leland Route PRN Reason Start Time Stop Time Status Last Admin Dose Admin Sodium Chloride (NS) 500 ml @ 500 mls/hr Q1H STAT IV 06/16/16 09:54 06/16/16 10:53 DC 06/16/16 10:36 Morphine Sulfate (morphine) 2 mg ONCE STAT IV 06/16/16 09:54 06/16/16 09:56 DC 06/16/16 10:37 Ondansetron HCl (Zofran Inj) 4 mg ONCE STAT IV 06/16/16 09:54 06/16/16 09:56 DC 06/16/16 10:36 Labetalol HCl (Labetalol) 20 mg ONCE ONCE IV 06/16/16 12:30 06/16/16 12:31 DC 06/16/16 12:49 Hydralazine HCl (Apresoline) 15 mg ONCE ONCE IV 06/16/16 15:30 06/16/16 15:31 DC 06/16/16 15:35 Aspirin (Halfprin) 81 mg DAILY PO 06/16/16 16:00 UNV Clonidine (Catapres) 0.1 mg Q6 PRN PO SBP>150 mm Hg 06/16/16 16:00 UNV Docusate Sodium (Colace) 100 mg DAILY PO 06/17/16 09:00 UNV Acetaminophen/ Hydrocodone Bitart ([place] (10/325)) 1 tab Q6H PRN PO Moderate PAIN 06/16/16 16:00 UNV Levothyroxine Sodium (Synthroid) 50 mcg DAILY PO 06/17/16 09:00 UNV Losartan Potassium (Cozaar) 100 mg DAILY PO 06/16/16 16:00 UNV Metoprolol Succinate (Toprol Xl) 50 mg QPM PO 06/16/16 21:00 UNV Multivit/Ca Carb/ B Cmplx/FA/Prenat ([place]-Mike) 1 tab DAILY PO 06/17/16 09:00 UNV Nifedipine (Procardia Xl) 90 mg DAILY PO 06/16/16 16:00 UNV Procedures/MDM Epigastric pain which likely cholelithiasis chest pain in a patient with severe hypertension and a pericardial effusion. Also has a close fracture of her toe. 20 of labetalol IV had no effect on her blood pressure. 15 mg of hydralazine did successfully lower her blood pressure. Should not take her blood pressure medication this morning but her family states that her blood pressure been running very high lately. The patient and her family also had no knowledge of any fluid around the heart at any point in the past. Patient had had dialysis yesterday but still has a very elevated BNP. I believe that she would deathly benefit from admission and further workup for her initial cardiac workup is negative for acute cardiac injury. I ordered an echo emergency room. The patient went to the Stock Room Manager as come back with echo has not been read yet. Brennan and she was placed on the patient's foot for her broken toe. She has no pain currently after she was given a small dose of morphine. She is also given Zofran initially for nausea. Spoke with Dr. Odell who requested the patient is admitted under , to telemetry for further evaluation. EKG interpretation: Normal sinus rhythm rate of 66, normal axis, no ST or T- wave changes concerning for acute ischemia front desk monitor interpretation: Normal sinus rhythm without arrhythmia Chest x-ray interpretation: Cardiomegaly without any other acute process. I see no widened mediastinum, no pneumothorax, no felicitas infiltrates, no fractures X-ray interpretation: Second proximal phallus fracture CT head on pelvis interpretation: Bilateral atrophic kidneys, no obstruction, no free air, no fractures Critical care time 35 minutes: This includes treatment of hypertensive emergency and a patient with chest pain again enlarged. Carlos effusion, use of tobacco is medications labetalol and hydralazine, multiple visits the patient's bedside to reassess status and check blood pressure, chart review, discussion with patient family and admitting doctor. This does not include any billable procedures Departure Diagnosis: Primary Impression: Epigastric pain Additional Impressions: Pericardial effusion Hyponatremia Hypertensive crisis Atrophy of kidney Fractured toe Condition: Serious DESTINEY DUPONT DO June 16, 2016 15:51
[2016-06-16] MEDS ORDERED: ONDANSETRON 4 MG INJ IV PRN ×2 (16:00)
[2016-06-16] MEDS ORDERED: HYDROCODONE/APAP (10/325) TAB PO PRN (16:00)
[2016-06-16] MEDS ORDERED: hydrALAzine 20 MG INJ IV PRN (16:00)
[2016-06-16] MEDS ORDERED: morphine 2 MG INJ IV PRN (16:00)
[2016-06-16] MEDS ORDERED: LOSARTAN 50 MG TAB PO SCH (16:00)
[2016-06-16] MEDS ORDERED: NACL 0.9% 3 ML SYG IV SCH (16:00)
[2016-06-16] MEDS ORDERED: ALBUTEROL/IPRATROPIUM (NEB) 3 ML AMP HHN PRN (16:00)
[2016-06-16] MEDS ORDERED: MAGNESIUM HYDROXIDE 30ML CUP PO PRN (16:00)
[2016-06-16] MEDS ORDERED: BISACODYL (EC) 5 MG TAB PO PRN (16:00)
[2016-06-16] MEDS ORDERED: BISACODYL 10 MG SUPP PR PRN (16:00)
[2016-06-16] MEDS ORDERED: ACETAMINOPHEN 325 MG TAB PO PRN ×2 (16:00)
[2016-06-16] MEDS ORDERED: NA PHOSPHATE/BIPHOS 133 ML ENEMA PR PRN (16:00)
[2016-06-16] MEDS ORDERED: ZOLPIDEM 5 MG TAB PO PRN (16:00)
--- NOTE | 2016-06-16 16:05 | RADRPT ---
Echocardiogram Report Patient Name: VALERIA MOTLEY Gender: Female Date: 1945 Study Date: 16-Jun-2016 [employer] Technician: Jase Chowdhury RDCS Location: EKG Ref. Physician: DESTINEY DUPONT Quality: Good Procedures: Transthoracic echocardiogram with complete 2D, M-Mode, and doppler examination. Indications: Pericardial Effusion. 2D/M Mode Doppler Measurement Value Normal Ranges Measurement Value Normal Ranges LVIDd 2D 5.8 3.5 - 5.6 cm LVOT Peak Joni 1.0 m/sec LVIDs 2D 2.8 2.1 - 4.1 cm LVOT Peak PG 3.8 mmHg LVPWd 2D 1.1 0.6 - 1.1 cm MV E Peak Joni 0.8 m/sec IVSd 2D 1.1 0.6 - 1.1 cm MV A Peak Joni 1.1 m/sec AoR Diam 2D 2.9 2.0 - 3.7 cm MV E/A 0.7 EDV 2D 163.8 cm3 MV Decel Time 226 msec ESV 2D 21.3 cm3 MV Decel [place] 3 LA Dimen 2D 3.6 2.3 - 4.0 cm MV E/A 0.7 TR Peak Joni 2.8 m/sec TR Peak PG 30.8 mmHg RVSP 34.0 mmHg Findings Left Ventricle: Normal left ventricular systolic function. Normal left ventricular cavity size. Mild concentric left ventricular hypertrophy. Ejection fraction is visually estimated at 65 %. Tissue Doppler/Mitral Doppler indices are consistent with impaired relaxation (Stage I diastolic dysfunction). Right Ventricle: Normal right ventricular size. Normal right ventricular systolic function. Left Atrium: The left atrium is normal in size. Right Atrium: The right atrium is normal in size. Mitral Valve: Normal appearance and function of the mitral valve with trace physiologic regurgitation. Aortic Valve: No hemodynamically significant aortic stenosis by doppler. Aortic cusps appear mildly calcified. Mild aortic valve regurgitation. Tricuspid Valve: Normal appearance and function of the tricuspid valve with trace physiologic regurgitation. Estimated peak PA systolic pressure 34 mmHg. Pulmonic Valve: Normal pulmonic valve appearance. Pericardium: Small pericardial effusion. Aorta: Normal aortic root. IVC: Normal size and normal respiratory collapse consistent with normal right atrial pressure. Conclusions Normal left ventricular systolic function. Normal left ventricular cavity size. Mild concentric left ventricular hypertrophy. Ejection fraction is visually estimated at 65 %. Tissue Doppler/Mitral Doppler indices are consistent with impaired relaxation (Stage I diastolic dysfunction). Normal right ventricular size. Normal right ventricular systolic function. The left atrium is normal in size. The right atrium is normal in size. No significant valvular stenosis or regurgitation seen. Small pericardial effusion. Electronically Signed By: Amari Baez 16-Jun-2016 16:04:22 -0700 Patient Name: VALERIA MOTLEY Study Date: 16-Jun-2016 [id number]
[2016-06-16] MEDS ORDERED: GLUCOSE GEL 15 GRAM TUBE BUCCAL PRN (16:30)
[2016-06-16] MEDS ORDERED: DEXTROSE 50% 50 ML SYRINGE IV PRN ×2 (16:30)
[2016-06-16] MEDS ORDERED: GLUCAGON 1 MG INJ IM PRN (16:30)
[2016-06-16] MEDS ORDERED: GLUCOSE GEL 15 GRAM TUBE PO PRN ×2 (16:30)
[2016-06-16 17:01] LABS: ADD UMIC YES; URINE BILIRUBIN (Dip) NEGATIVE (NEGATIVE); URINE BLOOD (Dip) 1+ (NEGATIVE); URINE COLOR LT. YELLOW (YELLOW); URINE KETONES (Dip) NEGATIVE (NEGATIVE); URINE LEUKOCYTE ESTERASE (Dip) NEGATIVE (NEGATIVE); URINE NITRITE (Dip) NEGATIVE (NEGATIVE); URINE TOTAL PROTEIN (Dip) 4+ (NEGATIVE); URINE UROBILINOGEN (Dip) 0.2 E.U./dL (0.1-1.0)
--- NOTE | 2016-06-16 17:08 | CONS ---
Date/Time of Note Date/Time of Note DATE: 06/16/16 TIME: 17:01 Assessment/Plan Assessment/Plan Additional Assessment/Plan Small pericardial effusion Hypertension urgency Preserved ejection fraction Abdominal pain End-stage renal disease on hemodialysis Hypertension Diabetes Obesity -Patient with incidental pericardial effusion seen on CT abdomen pelvis. Echocardiogram with small effusion with no evidence of tamponade. No cardiac intervention necessary at the current time. Patient's blood pressure has been uncontrolled. Diet compliance could likely be contributing. Would change metoprolol to Coreg for better blood pressure control. Changed Cozaar to twice daily dosing. If blood pressure still not well controlled, could change Procardia to twice daily dosing as well as up titrate medication dosages. Continue aspirin and statin therapy if no contraindication. Consultation Date/Type/Reason Admit Date/Time Type of Consultation: cv Reason for Consultation Pericardial effusion Hx of Present Illness This is a 70-year-old female past medical history of end-stage renal disease on hemodialysis, hypertension, diabetes who presents with abdominal pain and foot pain. Patient had a recent fall and with pain in her foot. Patient also complaining of recurrent episodes of abdominal pain. Symptoms are usually worse at nighttime and better during the daytime. She does complain of constipation. He denies any shortness of breath, chest pain, dizziness or lightheadedness. She does admit that her blood pressure has been uncontrolled over the past week. She states she is compliant with medications and hemodialysis with unclear compliance with diet and restricted sodium intake. Patient underwent CT abdomen pelvis and found incidental pericardial effusion and for this reason cardiology consultation was requested. 12 point review of systems was performed with all pertinent positives and negatives mentioned above and all else is negative Past Medical History Medical History: diabetes, high cholesterol, hypertension, renal disease Past Surgical History Past Surgical Hx: other (av fistula) Family History Significant Family History: no pertinent family hx Social History Smoking Status: Never smoker Other Social History Lives at home Exam/Review of Systems Vital Signs Vitals Vital Signs Date Time Temp Pulse Resp B/P Pulse Ox O2 Delivery O2 Flow Rate FiO2 06/16/16 16:27 76 18 200/88 97 Room Air 06/16/16 09:28 98.2 Exam No apparent distress Constitutional: alert, obese, oriented Head: normocephalic Neck: supple Respiratory: clear to auscultation, normal air movement Cardiovascular: other (S1-S2 heard), regular rate and rhythm Gastrointestinal: bowel sounds, other (Tenderness to palpation in the right lower quadrant, no guarding), soft Extremities: edema Results Result Diagram: 06/16/16 1031 06/16/16 1031 Results 24 hrs Laboratory Tests Test 06/16/16 10:31 06/16/16 10:54 White Blood Count 7.7 Red Blood Count 3.66 L Hemoglobin 11.2 L Hematocrit 34.1 L Mean Corpuscular Volume 93.2 Mean Corpuscular Hemoglobin 30.6 Mean Corpuscular Hemoglobin Concent 32.8 Red Cell Distribution Width 15.2 H Platelet Count 205 Mean Platelet Volume 9.2 Neutrophils % 52.9 Lymphocytes % 22.8 Monocytes % 5.6 Eosinophils % 17.7 H Basophils % 0.7 Nucleated Red Blood Cells % 0.0 Neutrophils # 4.1 Lymphocytes # 1.8 Monocytes # 0.4 Eosinophils # 1.4 H Basophils # 0.1 Nucleated Red Blood Cells # 0.0 Prothrombin Time 13.5 Prothrombin Time Ratio 1.1 INR International Normalized Ratio 1.03 Activated Partial Thromboplast Time 29.9 Sodium Level 133 L Potassium Level 4.8 Chloride Level 90 L Carbon Dioxide Level 26 Anion Gap 22 H Blood Urea Nitrogen 44 H Creatinine 8.08 H Glucose Level 176 Lactic Acid Level 1.5 Calcium Level 9.6 Total Bilirubin 0.2 Direct Bilirubin 0.00 Indirect Bilirubin 0.2 Aspartate Amino Transf (AST/SGOT) 28 Alanine Aminotransferase (ALT/SGPT) 15 Alkaline Phosphatase 82 Troponin I < 0.012 Total Protein 8.1 Albumin 4.3 Globulin 3.80 H Albumin/Globulin Ratio 1.13 Lipase 53 B-Type Natriuretic Peptide 80142 H Medications Medications Current Medications Aspirin (Halfprin) 81 mg DAILY PO ; Start 06/16/16 at 16:00 Clonidine (Catapres) 0.1 mg Q6H PRN PO SBP>150 mm Hg ; Start 06/16/16 at 16:00 Docusate Sodium (Colace) 100 mg DAILY PO ; Start 06/17/16 at 09:00 Acetaminophen/ Hydrocodone Bitart ([place] (10/325)) 1 tab Q6H PRN PO Moderate PAIN; Start 06/16/16 at 16:00 Levothyroxine Sodium (Synthroid) 50 mcg DAILY PO ; Start 06/17/16 at 09:00 Losartan Potassium (Cozaar) 100 mg DAILY PO ; Start 06/16/16 at 16:00 Metoprolol Succinate (Toprol Xl) 50 mg QPM PO ; Start 06/16/16 at 21:00 Multivit/Ca Carb/ B Cmplx/FA/Prenat ([place]-Mike) 1 tab DAILY PO ; Start 06/17/16 at 09:00 Nifedipine (Procardia Xl) 90 mg DAILY PO ; Start 06/16/16 at 16:00 Insulin Human NPH (Humulin N) 13 unit HS SC ; Start 06/16/16 at 21:00 Hydralazine HCl (Apresoline) 10 mg Q4H PRN IV SBP>150 mM hg ; Start 06/16/16 at 16:00 Ondansetron HCl (Zofran Inj) 4 mg Q6H PRN IV NAUSEA AND/OR VOMITING; Start 06/16 at 16:00 Acetaminophen (Tylenol Tab) 650 mg Q6H PRN PO PAIN LEVEL 1-3 OR FEVER; Start at 16:00 Morphine Sulfate (morphine) 2 mg Q4H PRN IV SEVERE PAIN LEVEL 7-10; Start at 16:00 Magnesium Hydroxide (Milk Of Mag) 30 ml DAILY PRN PO CONSTIPATION; Start at 16:00 Bisacodyl (Dulcolax) 5 mg DAILY PRN PO CONSTIPATION; Start 06/16/16 at 16:00 Bisacodyl (Dulcolax Supp) 10 mg DAILY PRN [place] CONSTIPATION; Start 06/16/16 at 16: 00 Sodium Biphosphate/ Sodium Phosphate (Fleet Enema) 133 ml DAILY PRN [place] CONSTIPATION; Start 06/16/16 at 16:00 Zolpidem Tartrate (Ambien) 5 mg QHS PRN PO SLEEP; Start 06/16/16 at 16:00 Famotidine (Pepcid Iv) 20 mg HS IV ; Start 06/16/16 at 21:00 Miscellaneous Information 1 ea NOTE XX ; Start 06/16/16 at 16:30 Glucose (Glutose) 15 gm Q15M PRN PO DECREASED GLUCOSE; Start 06/16/16 at 16:30 Glucose (Glutose) 22.5 gm Q15M PRN PO DECREASED GLUCOSE; Start 06/16/16 at 16:30 Dextrose (D50w Syringe) 25 ml Q15M PRN IV DECREASED GLUCOSE; Start 06/16/16 at 16:30 Dextrose (D50w Syringe) 50 ml Q15M PRN IV DECREASED GLUCOSE; Start 06/16/16 at 16:30 Glucagon (Glucagen) 1 mg Q15M PRN IM DECREASED GLUCOSE; Start 06/16/16 at 16:30 Glucose (Glutose) 15 gm Q15M PRN BUCCAL DECREASED GLUCOSE; Start 06/16/16 at 16: 30 Procedures Procedures ECG done today demonstrates sinus rhythm, normal QRS duration, poor R-wave progression, no significant ischemic STT wave abnormalities Amari Baez DO June 16, 2016 17:08
[2016-06-16 17:17] LABS: BACTERIA,URINE RARE; SQUAMOUS EPITHELIAL CELL,UR FEW; URINE RBCS 0-2 /HPF (0)
--- NOTE | 2016-06-16 17:56 | HP ---
DATE OF ADMISSION: 06/16/2016 CHIEF COMPLAINT: Shortness of breath, possible fluid overload, hypertensive emergency. HISTORY OF PRESENT ILLNESS: This is a 70-year-old female who has a past medical history of hyperten dunia, diabetes mellitus, hyperlipidemia, hypothyroidism, history of end-stage renal disease on hemod ialysis Tuesday, , and Tuesday through her left upper extremity AV shunt, history of a left partial thyroidectomy. The patient presented with the complaint of shortness of breath, elevated b lood pressure. She also had a left foot injury, and the patient's foot x-ray in the emergency room shows a 2nd proximal phalanx fracture with diffuse soft tissue swelling that does not require any smart rgical intervention. The patient had a chest x-ray done in the emergency room that shows cardiomega ly with pulmonary congestion, and the CT abdomen and pelvis was negative for any acute finding. The patient is getting admitted to the telemetry floor. Currently, in the emergency room, her systolic blood pressure is 241/105. She is ordered to have Nifedipine and losartan in the emergency room an d IV Hydralazine p.r.n. Plan is to do her hemodialysis tomorrow morning. At the time of my evaluation, the patient denies any chest pain, but she was complaining of shortnes s of breath, exertional, associated with some nausea. She denies any palpitations, headache, dizzin ess, blurry vision, constipation, diarrhea, dysuria, increased urinary frequency. REVIEW OF SYSTEMS: As per HPI. PAST MEDICAL HISTORY: Notable for hypertension, diabetes mellitus, hyperlipidemia, hypothyroidism, end-stage renal disease on hemodialysis Tuesday, , and Tuesday. PAST SURGICAL HISTORY: History of left partial thyroidectomy, lumpectomy of right breast, left uppe r extremity AV fistula. SOCIAL HISTORY: The patient lives with her daughter in [place]. She denies any smoking, alcohol, or recreational drug use. FAMILY HISTORY: No family history of coronary heart disease/ chronic kidney disease/stroke. PHYSICAL EXAMINATION: VITAL SIGNS: Temperature 98.2, heart rate 69, respiration 18, blood pressure 239/100, saturation is 97% on room air. GENERAL: Awake, alert, moderate distress due to the elevated blood pressure. HEENT: Normal. Oropharynx clear. NECK: Supple, no JVD, no lymphadenopathy. LUNGS: Reveal bibasilar crackles present. No expiratory wheezing. HEART: S1, S2, with regular rhythm, no murmur. ABDOMEN: Soft, morbidly obese, nontender, nondistended. Bowel sounds are present. EXTREMITIES: The patient has 1 to 2+ pitting edema in the bilateral lower extremities. Left upper extremity has AV fistula with good thrill and bruit. NEUROLOGICAL: Nonfocal, intact. PSYCHIATRIC: Appropriate affect and mood. SKIN: No rash. LABORATORY DATA/DIAGNOSTIC IMAGIN. WBC 7.7, hemoglobin 11.2, platelet count is 205. 2. Sodium 133, potassium 4.8, chloride 90, bicarbonate 26, BUN 44, creatinine 8.08, glucose 176, ca lcium 9.6. BNP 16,300. Albumin is 4.3. 3. PT 13.5, PTT 29.9, INR 1.0. 4. Urinalysis shows 1+ hemoglobin, 4+ total protein. IMPRESSION: This is a 70-year-old female with 1. Hypertensive urgency causing acute fluid overload/pulmonary congestion. 2. Acute fluid overload. 3. End-stage renal disease on hemodialysis Tuesday, , and Tuesday. 4. Hypertension. 5. Hyperlipidemia. 6. Hypothyroidism. 7. Diabetes mellitus. 8. Left foot proximal phalanx fracture. PLAN 1. Admission to the telemetry floor. I will resume the patient's home medications including Procar tomas-XL 90 mg p.o. daily. 2. IV hydralazine p.r.n. systolic blood pressure more than 150. 3. We will plan for patient's hemodialysis to be done tomorrow morning. 4. The patient is regular schedule is Tuesday, , Tuesday. 5. The patient is started on Cozaar 50 mg p.o. b.i.d. for better blood pressure control. 6. The patient is currently seen in the emergency room, and she will be getting admitted to the tel emetry floor. 7. Cardiology consult. Dr. Baez has been called in to evaluate the patient. Echocardiogram show ed a small pericardial effusion with a preserved ejection fraction. 8. Accu-Chek a.c. and at bedtime with sliding scale insulin. 9. The patient has been started on a renal diabetic diet. Total time spent is more than 90 minutes. Dictated By: NANCY COVARRUBIAS MD KP/LOLA Conf#: [id number] DID#: [id number]
[2016-06-16] MEDS: NIFEdipine (XL) 90 MG TAB PO SCH (18:15)
[2016-06-16] MEDS: ASPIRIN (EC) 81 MG TAB PO SCH (18:15)
[2016-06-16 18:18] VITALS: TEMP 98.7
[2016-06-16] MEDS: INSULIN ASPART [NOVOLOG] 3 ML PEN SC SCH ×2 (19:08→21:08)
[2016-06-16 20:00] VITALS: BP 182/81; RESP 19
[2016-06-16 20:39] VITALS: PULSE 81
[2016-06-16] MEDS ORDERED: METOPROLOL (XL) 50 MG TAB PO SCH (21:00)
[2016-06-16] MEDS: NPH, HUMAN INSULIN ISOPHANE 3ML VIAL SC SCH (21:00)
[2016-06-16] MEDS ORDERED: FAMOTIDINE 20 MG INJ IV SCH (21:00)
[2016-06-16] MEDS: ATORVASTATIN 20 MG TAB PO SCH (21:05)
[2016-06-16] MEDS: LOSARTAN 50 MG TAB PO SCH (21:05)
[2016-06-17] VITALS (19 sets, daily range): BP systolic 122–185; BP diastolic 62–91; PULSE 74–87; RESP 18–20; Ht 154.9 cm; Wt 78.3 kg
[2016-06-17] MEDS: INSULIN ASPART [NOVOLOG] 3 ML PEN SC SCH ×4 (08:14→20:35)
[2016-06-17 08:22] LABS: ADD SCAN DIFF NO
[2016-06-17 08:36] LABS: BASOPHILS % 0.6 % (0.0-2.0); EOSINOPHILS # 0.6 10^3/ul (0.0-0.5); EOSINOPHILS % 12.7 % (0.0-7.0); HEMATOCRIT 33.2 % (37.0-47.0); HEMOGLOBIN 10.9 g/dl (12.0-16.0); LYMPHOCYTES # 0.9 10^3/ul (0.8-2.9); LYMPHOCYTES % 18.1 % (15.0-51.0); MEAN CORPUSCULAR HEMOGLOBIN 30.4 pg (29.0-33.0); MEAN CORPUSCULAR HGB CONC 32.8 g/dl (32.0-37.0); MEAN CORPUSCULAR VOLUME 92.5 fl (82.0-101.0); MEAN PLATELET VOLUME 9.3 fl (7.4-10.4); MONOCYTE # 0.2 10^3/ul (0.3-0.9); NEUTROPHIL # 3.3 10^3/ul (1.6-7.5); NEUTROPHILS % 65.2 % (39.0-77.0); PLATELET COUNT 197 10^3/UL (140-415); RED BLOOD COUNT 3.59 10^6/ul (4.20-5.40); RED CELL DISTRIBUTION WIDTH 15.2 % (11.5-14.5)
[2016-06-17 08:44] LABS: INR 0.97; PROTIME 12.9 Sec (12.2-14.2)
[2016-06-17 08:45] LABS: PARTIAL THROMBOPLASTIN TIME 28.8 Sec (25.0-35.0)
[2016-06-17 08:52] LABS: ALBUMIN 3.9 g/dl (3.3-4.9); POTASSIUM 3.9 mmol/L (3.5-5.1)
[2016-06-17 08:55] LABS: ALBUMIN/GLOBULIN RATIO 1.05; BILIRUBIN,INDIRECT 0.1 mg/dl (0-1.1); BILIRUBIN,TOTAL 0.1 mg/dl (0.2-1.3); CREATININE 6.97 mg/dl (0.44-1.00); TOTAL PROTEIN 7.6 g/dl (6.1-8.1)
[2016-06-17 08:56] LABS: CALCIUM 8.9 mg/dl (8.4-10.2)
[2016-06-17] MEDS: DOCUSATE SODIUM 100 MG CAP PO SCH (09:28)
[2016-06-17] MEDS: LOSARTAN 50 MG TAB PO SCH ×2 (09:28→20:28)
[2016-06-17] MEDS: ASPIRIN (EC) 81 MG TAB PO SCH (09:28)
[2016-06-17] MEDS: MULTIVIT/CA CARB/B CMPLX/FA TAB PO SCH (09:29)
[2016-06-17] MEDS: LEVOTHYROXINE 50 MCG TAB PO SCH (11:29)
[2016-06-17] MEDS: NIFEdipine (XL) 90 MG TAB PO SCH (11:34)
--- NOTE | 2016-06-17 14:27 | CONS ---
Date/Time of Note Date/Time of Note DATE: 06/17/16 TIME: 14:25 Assessment/Plan Assessment/Plan Additional Assessment/Plan Small pericardial effusion Hypertension urgency-improved Preserved ejection fraction Abdominal pain End-stage renal disease on hemodialysis Hypertension Diabetes Obesity -Blood pressure trend overall improving, last blood pressure reading is from 4 AM this morning prior to receiving medications. If SBP still not less than 150 , could increase Procardia to twice daily dosing. Fluid management via hemodialysis as per our nephrology colleagues. Consultation Date/Type/Reason Admit Date/Time June 16, 2016 at 15:53 Initial Consult Date Type of Consultation: cv 24 HR Interval Summary Free Text/Dictation Feels better, denies chest pain, shortness of breath, abdominal pain is better Exam/Review of Systems Vital Signs Vitals Vital Signs Date Time Temp Pulse Resp B/P Pulse Ox O2 Delivery O2 Flow Rate FiO2 06/17/16 12:14 84 06/17/16 09:00 20 06/17/16 04:00 98.6 175/73 92 06/16/16 18:18 Room Air Intake and Output 06/16/16 06/16/16 06/17/16 15:00 23:00 07:00 Intake Total 500 ml 380 ml Output Total 1 ml Balance 500 ml 379 ml Exam No apparent distress, family at bedside Constitutional: alert, obese, oriented Head: normocephalic Respiratory: other (Coarse breath sounds bilaterally, no wheezing) Cardiovascular: other (S1-S2 heard), regular rate and rhythm Gastrointestinal: bowel sounds, non-tender, soft Extremities: edema (Trace) Results Result Diagram: 06/17/16 0745 06/17/16 0745 Results 24 hrs Laboratory Tests Test 06/16/16 16:41 06/16/16 18:41 06/16/16 20:48 06/17/16 02:28 Urine Color LT. YELLOW Urine Clarity CLEAR Urine pH 8.0 Urine Specific [place] 1.015 Urine Ketones NEGATIVE Urine Nitrite NEGATIVE Urine Bilirubin NEGATIVE Urine Urobilinogen 0.2 E.U./dL Urine Leukocyte Esterase NEGATIVE Urine Microscopic RBC 0-2 Urine Microscopic WBC 0-2 Urine Squamous Epithelial Cells FEW Urine Bacteria RARE Urine Hemoglobin 1+ H Urine Glucose 0.25% H Urine Total Protein 4+ H Bedside Glucose 165 197 141 Test 06/17/16 07:45 06/17/16 08:10 06/17/16 11:35 White Blood Count 5.0 # Red Blood Count 3.59 L Hemoglobin 10.9 L Hematocrit 33.2 L Mean Corpuscular Volume 92.5 Mean Corpuscular Hemoglobin 30.4 Mean Corpuscular Hemoglobin Concent 32.8 Red Cell Distribution Width 15.2 H Platelet Count 197 Mean Platelet Volume 9.3 Neutrophils % 65.2 Lymphocytes % 18.1 Monocytes % 3.0 Eosinophils % 12.7 H Basophils % 0.6 Nucleated Red Blood Cells % 0.0 Neutrophils # 3.3 Lymphocytes # 0.9 Monocytes # 0.2 L Eosinophils # 0.6 H Basophils # 0.0 Nucleated Red Blood Cells # 0.0 Prothrombin Time 12.9 Prothrombin Time Ratio 1.0 INR International Normalized Ratio 0.97 Activated Partial Thromboplast Time 28.8 Sodium Level 135 Potassium Level 3.9 Chloride Level 95 L Carbon Dioxide Level 25 Anion Gap 19 H Blood Urea Nitrogen 39 H Creatinine 6.97 H Glucose Level 161 Calcium Level 8.9 Total Bilirubin 0.1 L Direct Bilirubin 0.00 Indirect Bilirubin 0.1 Aspartate Amino Transf (AST/SGOT) 25 Alanine Aminotransferase (ALT/SGPT) 20 Alkaline Phosphatase 79 Total Protein 7.6 Albumin 3.9 Globulin 3.70 H Albumin/Globulin Ratio 1.05 Bedside Glucose 163 158 Medications Medications Current Medications Aspirin (Halfprin) 81 mg DAILY PO Last administered on 06/17/16 09:28; Admin Dose 81 MG; Start 06/16/16 at 16:00 Clonidine (Catapres) 0.1 mg Q6H PRN PO SBP>150 mm Hg ; Start 06/16/16 at 16:00 Docusate Sodium (Colace) 100 mg DAILY PO Last administered on 06/17/16 09:28; Admin Dose 100 MG; Start 06/17/16 at 09:00 Acetaminophen/ Hydrocodone Bitart ([place] (10/325)) 1 tab Q6H PRN PO Moderate PAIN; Start 06/16/16 at 16:00 Levothyroxine Sodium (Synthroid) 50 mcg DAILY PO Last administered on 06/17/16 11:29; Admin Dose 50 MCG; Start 06/17/16 at 09:00 Multivit/Ca Carb/ B Cmplx/FA/Prenat ([place]) 1 tab DAILY PO Last administered on 06/17/16 09:29; Admin Dose 1 TAB; Start 06/17/16 at 09:00 Nifedipine (Procardia Xl) 90 mg DAILY PO Last administered on 06/17/16 11:34; Admin Dose 90 MG; Start 06/16/16 at 16:00 Insulin Human NPH (Humulin N) 13 unit HS SC ; Start 06/16/16 at 21:00 Hydralazine HCl (Apresoline) 10 mg Q4H PRN IV SBP>150 mM hg ; Start 06/16/16 at 16:00 Ondansetron HCl (Zofran Inj) 4 mg Q6H PRN IV NAUSEA AND/OR VOMITING; Start 06/16 at 16:00 Acetaminophen (Tylenol Tab) 650 mg Q6H PRN PO PAIN LEVEL 1-3 OR FEVER; Start at 16:00 Morphine Sulfate (morphine) 2 mg Q4H PRN IV SEVERE PAIN LEVEL 7-10; Start at 16:00 Magnesium Hydroxide (Milk Of Mag) 30 ml DAILY PRN PO CONSTIPATION; Start at 16:00 Bisacodyl (Dulcolax) 5 mg DAILY PRN PO CONSTIPATION; Start 06/16/16 at 16:00 Bisacodyl (Dulcolax Supp) 10 mg DAILY PRN [place] CONSTIPATION; Start 06/16/16 at 16: 00 Sodium Biphosphate/ Sodium Phosphate (Fleet Enema) 133 ml DAILY PRN [place] CONSTIPATION; Start 06/16/16 at 16:00 Zolpidem Tartrate (Ambien) 5 mg QHS PRN PO SLEEP; Start 06/16/16 at 16:00 Famotidine (Pepcid Iv) 20 mg HS IV Last administered on 06/16/16 21:04; Admin Dose 20 MG; Start 06/16/16 at 21:00 Miscellaneous Information 1 ea NOTE XX ; Start 06/16/16 at 16:30 Glucose (Glutose) 15 gm Q15M PRN PO DECREASED GLUCOSE; Start 06/16/16 at 16:30 Glucose (Glutose) 22.5 gm Q15M PRN PO DECREASED GLUCOSE; Start 06/16/16 at 16:30 Dextrose (D50w Syringe) 25 ml Q15M PRN IV DECREASED GLUCOSE; Start 06/16/16 at 16:30 Dextrose (D50w Syringe) 50 ml Q15M PRN IV DECREASED GLUCOSE; Start 06/16/16 at 16:30 Glucagon (Glucagen) 1 mg Q15M PRN IM DECREASED GLUCOSE; Start 06/16/16 at 16:30 Glucose (Glutose) 15 gm Q15M PRN BUCCAL DECREASED GLUCOSE; Start 06/16/16 at 16: 30 Losartan Potassium (Cozaar) 50 mg BID PO Last administered on 06/17/16 09:28; Admin Dose 50 MG; Start 06/16/16 at 21:00 Carvedilol (Coreg) 6.25 mg BID PO Last administered on 06/17/16 09:29; Admin Dose 6.25 MG; Start 06/16/16 at 21:00 Atorvastatin Calcium (Lipitor) 20 mg HS PO Last administered on 06/16/16 21:05 ; Admin Dose 20 MG; Start 06/16/16 at 21:00 Amari Baez DO June 17, 2016 14:27
--- NOTE | 2016-06-17 17:14 | PN ---
Date/Time of Note Date/Time of Note DATE: 06/17/16 TIME: 17:13 Assessment/Plan VTE Prophylaxis VTE Prophylaxis Intervention: SCD's Lines/Catheters IV [facility] [place] Urinary Cath still in place: No Assessment/Plan Assessment/Plan 1. Hypertensive urgency causing acute fluid overload/pulmonary congestion. 2. Acute fluid overload. 3. End-stage renal disease on hemodialysis Tuesday, , and Tuesday. 4. Hypertension. 5. Hyperlipidemia. 6. Hypothyroidism. 7. Diabetes mellitus. 8. Left foot proximal phalanx fracture. PLAN: S/p Aggressive BP meds management, procardial XL and Cozaar 50mg BID S/p HD today 3 L removed will monitor her ovenright for HR and SOB if stable then plan for d/c in AM Subjective 24 Hr Interval Summary Free Text/Dictation s/p hemodilaysis today, 3 L removed, BP now more stable, still c/o SOB Exam/Review of Systems Vital Signs Vitals Vital Signs Date Time Temp Pulse Resp B/P Pulse Ox O2 Delivery O2 Flow Rate FiO2 06/17/16 16:22 151/70 06/17/16 16:13 74 06/17/16 16:03 98.2 19 96 06/17/16 08:30 Room Air Intake and Output 06/16/16 06/16/16 06/17/16 15:00 23:00 07:00 Intake Total 500 ml 380 ml Output Total 1 ml Balance 500 ml 379 ml Exam GENERAL: Awake, alert, moderate distress due to the elevated blood pressure. HEENT: Normal. Oropharynx clear. NECK: Supple, no JVD, no lymphadenopathy. LUNGS: Reveal bibasilar crackles present. No expiratory wheezing. HEART: S1, S2, with regular rhythm, no murmur. ABDOMEN: Soft, morbidly obese, nontender, nondistended. Bowel sounds are present. EXTREMITIES: The patient has 1 to 2+ pitting edema in the bilateral lower extremities. Left upper extremity has AV fistula with good thrill and bruit. NEUROLOGICAL: Nonfocal, intact. PSYCHIATRIC: Appropriate affect and mood. SKIN: No rash. Results Result Diagram: 06/17/16 0745 06/17/16 0745 Results 24 hrs Laboratory Tests Test 06/16/16 18:41 06/16/16 20:48 06/17/16 02:28 06/17/16 07:45 Bedside Glucose 165 197 141 White Blood Count 5.0 # Red Blood Count 3.59 L Hemoglobin 10.9 L Hematocrit 33.2 L Mean Corpuscular Volume 92.5 Mean Corpuscular Hemoglobin 30.4 Mean Corpuscular Hemoglobin Concent 32.8 Red Cell Distribution Width 15.2 H Platelet Count 197 Mean Platelet Volume 9.3 Neutrophils % 65.2 Lymphocytes % 18.1 Monocytes % 3.0 Eosinophils % 12.7 H Basophils % 0.6 Nucleated Red Blood Cells % 0.0 Neutrophils # 3.3 Lymphocytes # 0.9 Monocytes # 0.2 L Eosinophils # 0.6 H Basophils # 0.0 Nucleated Red Blood Cells # 0.0 Prothrombin Time 12.9 Prothrombin Time Ratio 1.0 INR International Normalized Ratio 0.97 Activated Partial Thromboplast Time 28.8 Sodium Level 135 Potassium Level 3.9 Chloride Level 95 L Carbon Dioxide Level 25 Anion Gap 19 H Blood Urea Nitrogen 39 H Creatinine 6.97 H Glucose Level 161 Calcium Level 8.9 Total Bilirubin 0.1 L Direct Bilirubin 0.00 Indirect Bilirubin 0.1 Aspartate Amino Transf (AST/SGOT) 25 Alanine Aminotransferase (ALT/SGPT) 20 Alkaline Phosphatase 79 Total Protein 7.6 Albumin 3.9 Globulin 3.70 H Albumin/Globulin Ratio 1.05 Test 06/17/16 08:10 06/17/16 11:35 Bedside Glucose 163 158 Medications Medications Current Medications Aspirin (Halfprin) 81 mg DAILY PO Last administered on 06/17/16 09:28; Admin Dose 81 MG; Start 06/16/16 at 16:00 Clonidine (Catapres) 0.1 mg Q6H PRN PO SBP>150 mm Hg ; Start 06/16/16 at 16:00 Docusate Sodium (Colace) 100 mg DAILY PO Last administered on 06/17/16 09:28; Admin Dose 100 MG; Start 06/17/16 at 09:00 Acetaminophen/ Hydrocodone Bitart ([place] (10/325)) 1 tab Q6H PRN PO Moderate PAIN; Start 06/16/16 at 16:00 Levothyroxine Sodium (Synthroid) 50 mcg DAILY PO Last administered on 06/17/16 11:29; Admin Dose 50 MCG; Start 06/17/16 at 09:00 Multivit/Ca Carb/ B Cmplx/FA/Prenat ([place]) 1 tab DAILY PO Last administered on 06/17/16 09:29; Admin Dose 1 TAB; Start 06/17/16 at 09:00 Nifedipine (Procardia Xl) 90 mg DAILY PO Last administered on 06/17/16 11:34; Admin Dose 90 MG; Start 06/16/16 at 16:00 Insulin Human NPH (Humulin N) 13 unit HS SC ; Start 06/16/16 at 21:00 Hydralazine HCl (Apresoline) 10 mg Q4H PRN IV SBP>150 mM hg Last administered on 06/17/16 15:38; Admin Dose 10 MG; Start 06/16/16 at 16:00 Ondansetron HCl (Zofran Inj) 4 mg Q6H PRN IV NAUSEA AND/OR VOMITING; Start 06/16 at 16:00 Acetaminophen (Tylenol Tab) 650 mg Q6H PRN PO PAIN LEVEL 1-3 OR FEVER; Start at 16:00 Morphine Sulfate (morphine) 2 mg Q4H PRN IV SEVERE PAIN LEVEL 7-10; Start at 16:00 Magnesium Hydroxide (Milk Of Mag) 30 ml DAILY PRN PO CONSTIPATION; Start at 16:00 Bisacodyl (Dulcolax) 5 mg DAILY PRN PO CONSTIPATION; Start 06/16/16 at 16:00 Bisacodyl (Dulcolax Supp) 10 mg DAILY PRN [place] CONSTIPATION; Start 06/16/16 at 16: 00 Sodium Biphosphate/ Sodium Phosphate (Fleet Enema) 133 ml DAILY PRN [place] CONSTIPATION; Start 06/16/16 at 16:00 Zolpidem Tartrate (Ambien) 5 mg QHS PRN PO SLEEP; Start 06/16/16 at 16:00 Miscellaneous Information 1 ea NOTE XX ; Start 06/16/16 at 16:30 Glucose (Glutose) 15 gm Q15M PRN PO DECREASED GLUCOSE; Start 06/16/16 at 16:30 Glucose (Glutose) 22.5 gm Q15M PRN PO DECREASED GLUCOSE; Start 06/16/16 at 16:30 Dextrose (D50w Syringe) 25 ml Q15M PRN IV DECREASED GLUCOSE; Start 06/16/16 at 16:30 Dextrose (D50w Syringe) 50 ml Q15M PRN IV DECREASED GLUCOSE; Start 06/16/16 at 16:30 Glucagon (Glucagen) 1 mg Q15M PRN IM DECREASED GLUCOSE; Start 06/16/16 at 16:30 Glucose (Glutose) 15 gm Q15M PRN BUCCAL DECREASED GLUCOSE; Start 06/16/16 at 16: 30 Losartan Potassium (Cozaar) 50 mg BID PO Last administered on 06/17/16 09:28; Admin Dose 50 MG; Start 06/16/16 at 21:00 Carvedilol (Coreg) 6.25 mg BID PO Last administered on 06/17/16 09:29; Admin Dose 6.25 MG; Start 06/16/16 at 21:00 Atorvastatin Calcium (Lipitor) 20 mg HS PO Last administered on 06/16/16 21:05 ; Admin Dose 20 MG; Start 06/16/16 at 21:00 Famotidine (Pepcid) 20 mg HS PO ; Start 06/17/16 at 21:00 NANCY COVARRUBIAS MD June 17, 2016 17:14
[2016-06-17] MEDS: ATORVASTATIN 20 MG TAB PO SCH (20:28)
[2016-06-17] MEDS: NPH, HUMAN INSULIN ISOPHANE 3ML VIAL SC SCH (20:34)
[2016-06-17] MEDS ORDERED: FAMOTIDINE 20 MG TAB PO SCH (21:00)
[2016-06-18] VITALS (8 sets, daily range): BP systolic 90–164; BP diastolic 53–108; PULSE 68–73; RESP 15–20
[2016-06-18] MEDS: INSULIN ASPART [NOVOLOG] 3 ML PEN SC SCH ×2 (08:00→12:00)
[2016-06-18] MEDS: LOSARTAN 50 MG TAB PO SCH (08:10)
[2016-06-18] MEDS: DOCUSATE SODIUM 100 MG CAP PO SCH (08:10)
[2016-06-18] MEDS: ASPIRIN (EC) 81 MG TAB PO SCH (08:10)
[2016-06-18] MEDS: LEVOTHYROXINE 50 MCG TAB PO SCH (08:10)
[2016-06-18] MEDS: MULTIVIT/CA CARB/B CMPLX/FA TAB PO SCH (08:10)
[2016-06-18] MEDS: NIFEdipine (XL) 90 MG TAB PO SCH (08:10)
--- NOTE | 2016-06-18 12:19 | CONS ---
Date/Time of Note Date/Time of Note DATE: 06/18/16 TIME: 12:18 Assessment/Plan Assessment/Plan Additional Assessment/Plan Small pericardial effusion Hypertension urgency-improved Preserved ejection fraction Abdominal pain End-stage renal disease on hemodialysis Hypertension Diabetes Obesity -Blood pressure trend overall improving on current medication regimen. Fluid management via hemodialysis as per our nephrology colleagues. DC planning Consultation Date/Type/Reason Admit Date/Time June 16, 2016 at 15:53 Type of Consultation: cv 24 HR Interval Summary Free Text/Dictation Denies chest pain, shortness of breath, headache or abdominal pain Exam/Review of Systems Vital Signs Vitals Vital Signs Date Time Temp Pulse Resp B/P Pulse Ox O2 Delivery O2 Flow Rate FiO2 06/18/16 12:16 98.6 75 18 135/65 96 06/17/16 08:30 Room Air Intake and Output 06/17/16 06/17/16 06/18/16 15:00 23:00 07:00 Intake Total 300 ml 720 ml 520 ml Output Total 3300 ml 1 ml Balance -3000 ml 720 ml 519 ml Exam Sitting in chair, no apparent distress Constitutional: alert, obese, oriented Head: normocephalic Respiratory: other (Coarse breath sounds bilaterally, no wheezing) Cardiovascular: other (S1-S2 heard), regular rate and rhythm Gastrointestinal: bowel sounds, non-tender, soft Extremities: edema (Trace) Results Result Diagram: 06/17/16 0745 06/17/16 0745 Results 24 hrs Laboratory Tests Test 06/17/16 17:12 06/17/16 20:22 06/18/16 04:00 06/18/16 08:09 Bedside Glucose 139 206 91 95 Test 06/18/16 11:34 Bedside Glucose 160 Medications Medications Current Medications Aspirin (Halfprin) 81 mg DAILY PO Last administered on 06/18/16 08:10; Admin Dose 81 MG; Start 06/16/16 at 16:00 Clonidine (Catapres) 0.1 mg Q6H PRN PO SBP>150 mm Hg ; Start 06/16/16 at 16:00 Docusate Sodium (Colace) 100 mg DAILY PO Last administered on 06/18/16 08:10; Admin Dose 100 MG; Start 06/17/16 at 09:00 Acetaminophen/ Hydrocodone Bitart ([place] (10/325)) 1 tab Q6H PRN PO Moderate PAIN; Start 06/16/16 at 16:00 Levothyroxine Sodium (Synthroid) 50 mcg DAILY PO Last administered on 06/18/16 08:10; Admin Dose 50 MCG; Start 06/17/16 at 09:00 Multivit/Ca Carb/ B Cmplx/FA/Prenat ([place]) 1 tab DAILY PO Last administered on 06/18/16 08:10; Admin Dose 1 TAB; Start 06/17/16 at 09:00 Nifedipine (Procardia Xl) 90 mg DAILY PO Last administered on 06/18/16 08:10; Admin Dose 90 MG; Start 06/16/16 at 16:00 Insulin Human NPH (Humulin N) 13 unit HS SC Last administered on 06/17/16 20:34 ; Admin Dose 13 UNIT; Start 06/16/16 at 21:00 Hydralazine HCl (Apresoline) 10 mg Q4H PRN IV SBP>150 mM hg Last administered on 06/17/16 15:38; Admin Dose 10 MG; Start 06/16/16 at 16:00 Ondansetron HCl (Zofran Inj) 4 mg Q6H PRN IV NAUSEA AND/OR VOMITING; Start 06/16 at 16:00 Acetaminophen (Tylenol Tab) 650 mg Q6H PRN PO PAIN LEVEL 1-3 OR FEVER; Start at 16:00 Morphine Sulfate (morphine) 2 mg Q4H PRN IV SEVERE PAIN LEVEL 7-10; Start at 16:00 Magnesium Hydroxide (Milk Of Mag) 30 ml DAILY PRN PO CONSTIPATION Last administered on 06/18/16 08:10; Admin Dose 30 ML; Start 06/16/16 at 16:00 Bisacodyl (Dulcolax) 5 mg DAILY PRN PO CONSTIPATION; Start 06/16/16 at 16:00 Bisacodyl (Dulcolax Supp) 10 mg DAILY PRN [place] CONSTIPATION; Start 06/16/16 at 16: 00 Sodium Biphosphate/ Sodium Phosphate (Fleet Enema) 133 ml DAILY PRN [place] CONSTIPATION; Start 06/16/16 at 16:00 Zolpidem Tartrate (Ambien) 5 mg QHS PRN PO SLEEP Last administered on 06/17/16 20:27; Admin Dose 5 MG; Start 06/16/16 at 16:00 Miscellaneous Information 1 ea NOTE XX ; Start 06/16/16 at 16:30 Glucose (Glutose) 15 gm Q15M PRN PO DECREASED GLUCOSE; Start 06/16/16 at 16:30 Glucose (Glutose) 22.5 gm Q15M PRN PO DECREASED GLUCOSE; Start 06/16/16 at 16:30 Dextrose (D50w Syringe) 25 ml Q15M PRN IV DECREASED GLUCOSE; Start 06/16/16 at 16:30 Dextrose (D50w Syringe) 50 ml Q15M PRN IV DECREASED GLUCOSE; Start 06/16/16 at 16:30 Glucagon (Glucagen) 1 mg Q15M PRN IM DECREASED GLUCOSE; Start 06/16/16 at 16:30 Glucose (Glutose) 15 gm Q15M PRN BUCCAL DECREASED GLUCOSE; Start 06/16/16 at 16: 30 Losartan Potassium (Cozaar) 50 mg BID PO Last administered on 06/18/16 08:10; Admin Dose 50 MG; Start 06/16/16 at 21:00 Carvedilol (Coreg) 6.25 mg BID PO Last administered on 06/18/16 08:11; Admin Dose 6.25 MG; Start 06/16/16 at 21:00 Atorvastatin Calcium (Lipitor) 20 mg HS PO Last administered on 06/17/16 20:28 ; Admin Dose 20 MG; Start 06/16/16 at 21:00 Famotidine (Pepcid) 20 mg HS PO Last administered on 06/17/16 20:28; Admin Dose 20 MG; Start 06/17/16 at 21:00 Amari Baez DO June 18, 2016 12:19
--- NOTE | 2016-06-18 12:45 | PDOCDIS ---
Discharge Instructions CONDITION Patient Condition: Good HOME CARE INSTRUCTIONS: Special Diet: renal diet ACTIVITY: Activity Restrictions: Slowly Increase Activity Rest between Activity Avoid heavy lifting Avoid Heavy Housework FOLLOW UP/APPOINTMENTS Appointments follow up with her own PMD through [employer] insurance in 1-2 week. Follow up with HD unit for scheduled HD tomorrow NANCY COVARRUBIAS MD June 18, 2016 12:45
[2016-06-18] MEDS ORDERED: LOSA50TA2 PO (12:46)
[2016-06-18] MEDS ORDERED: CARV6.2579 PO (12:46)
--- NOTE | 2016-06-19 19:47 | DS ---
DATE OF ADMISSION: 06/16/2016 DATE OF DISCHARGE: 06/18/2016 FINAL DISCHARGE DIAGNOSES: 1. Hypertensive urgency causing acute fluid overload/acute pulmonary congestion. 2. Acute fluid overload. 3. End-stage renal disease on hemodialysis Tuesday, , and Tuesday. 4. History of hypertension. 5. History of hyperlipidemia. 6. History of hypothyroidism. 7. History of diabetes mellitus. 8. Left foot proximal phalanx fracture secondary to foot trauma at home. CONSULTATIONS DONE DURING THIS HOSPITALIZATION: Cardiology consult, Dr. Amari Baez. PROCEDURES PERFORMED DURING THIS HOSPITALIZATION: The patient had an echocardiogram done for concern about pericardial effusions, but her echocardiogram shows ejection fraction 65% with a stage I diastolic dysfunction. There was a small pericardial effusion. HOSPITAL COURSE: This is a 70-year-old female who has a past medical history of hypertension, diabetes mellitus, hyperlipidemia, hypothyroidism, history of end-stage renal disease on hemodialysis Tuesday, , and Tuesday through her left upper extremity AV shunt, history of previous left partial thyroidectomy. She presented with a complaint of shortness of breath. The patient is noted to have a significantly elevated blood pressure of 241/105. She went into the acute fluid overload/acute pulmonary edema. The patient also had the left foot injury at home and her foot x-ray in the emergency room showed small proximal phalanx fracture. She had a CT abdomen and pelvis done in the emergency room that was suspicious for concern about pericardial effusion , otherwise it showed cardiomegaly. Subsequently, the patient had already aggressive blood pressure control including Procardia-XL and IV hydralazine was given multiple times. She was admitted to telemetry floor. The patient had immediate hemodialysis done for her acute fluid overload. She was followed up by office technician, Dr. Amari Baez, and had a 2D echocardiogram done. Her 2D echocardiogram showed normal ejection fraction with stage I diastolic dysfunction, but there is no evidence of any large pericardial effusions or any evidence of a cardiac tamponade. The patient was admitted to the telemetry floor where she was continued on aggressive blood pressure management and hemodialysis was done. After that, her blood pressure was very well controlled. She was cleared for discharge by office technician and she is being discharged home with a prescription of her blood pressure medications. DISPOSITION: To home. DISCHARGE CONDITION: Stable and improved compared to admission. DISCHARGE ACTIVITIES: As tolerated, slowly resume to the normal baseline activity. DISCHARGE DIET: Cardiac, renal diet. DISCHARGE MEDICATIONS: The patient is given new prescriptions of: 1. Coreg 6.25 mg p.o. b.i.d. 2. Her Losartan was changed from 100 mg daily to 50 mg p.o. b.i.d. upon discharge. She is continued on all of her other medications includin. Aspirin. 2. Clonidine. 3. [place]. 4. Insulin. 5. Levothyroxine. 6. Metoprolol. 7. Nifedipine. 8. NPH insulin. DISCHARGE FOLLOWUP INSTRUCTIONS 1. The patient is to follow up with her own primary care doctor through her HMO insurance 1 to 2 weeks after discharge. 2. The patient is to follow up with dialysis unit for scheduled hemodialysis on Tuesday, , and Tuesday. She has been explained about the discharge plan and followup instructions. She understood and verbalized understanding. Total time spent in this patient's discharge plan coming up with the followup appointments, communicating with the patient and her family at bedside, and then communicating with the nursing staff took more than 60 minutes. She has been explained about the discharge plan and followup instructions. Dictated By: NANCY COVARRUBIAS MD, KP/LOLA Conf#: [id number] DID#: [id number] CC: EUGENE BURCIAGA MD;*EndCC* MTDD
== END 2016-06-18 13:58 | disposition home or self-care (01) | DRG 189 ==
LOC: E/R 09:25 → MS4 15:53
PROVIDERS: ADMIT Internal Medicine; ATTEND Internal Medicine
PROC: 5A1D00Z (ICD-10-PCS; principal; 2016-06-16)
DX: J81.0 Acute pulmonary edema (principal); N18.6 End stage renal disease; I12.0 Hypertensive chronic kidney disease with stage 5 chronic kidney disease or end stage renal disease; E11.22 Type 2 diabetes mellitus with diabetic chronic kidney disease; E87.1 Hypo-osmolality and hyponatremia; E86.0 Dehydration; E78.5 Hyperlipidemia, unspecified; E03.9 Hypothyroidism, unspecified; I16.0 Hypertensive urgency; S92.912A Unspecified fracture of left toe(s), initial encounter for closed fracture; X58.XXXA Exposure to other specified factors, initial encounter; Y93.89 Activity, other specified; Y92.89 Other specified places as the place of occurrence of the external cause; Z79.4 Long term (current) use of insulin; Z79.82 Long term (current) use of aspirin; Z99.2 Dependence on renal dialysis
CPT/HCPCS: 36415; 71010; 74176; 80053; 81001; 81003; 82962; 83605; 83690; 83880; 84484; 85025; 85610; 85730; 90935; 93005; 93306; 96361; 96372; 96374; 96375; J0360; J1815; J2270; J2405; J7040

== ENCOUNTER 2016-07-27 13:05 | Inpatient (IN) | payer BC ==
[~2016-07-27] VITALS: Ht 157.5 cm; Wt 77.5 kg
[~2016-07-27 13:05] MED LIST changes: +CARV6.2579 PO; -LOSA100T7 PO; +LOSA50TA2 PO
[2016-07-27] MEDS ORDERED: CEFEPIME 2GM/50 ML (PMX) 50 ML IVPB STA (13:52)
[2016-07-27] MEDS ORDERED: ACETAMINOPHEN 325 MG TAB PO STA (13:52)
[2016-07-27] MEDS ORDERED: VANCOMYCIN 1 GM (PMX) 250 ML IVPB ONE (14:00)
[2016-07-27 14:23] LABS: ADD SCAN DIFF NO
[2016-07-27 14:26] LABS: ABNORMAL IP MESSAGE 1; BASOPHILS % 0.5 % (0.0-2.0); EOSINOPHILS # 0.7 10^3/ul (0.0-0.5); EOSINOPHILS % 11.8 % (0.0-7.0); HEMOGLOBIN 10.4 g/dl (12.0-16.0); LYMPHOCYTES # 0.4 10^3/ul (0.8-2.9); MEAN CORPUSCULAR HEMOGLOBIN 29.9 pg (29.0-33.0); MEAN CORPUSCULAR HGB CONC 32.5 g/dl (32.0-37.0); MONOCYTE # 0.6 10^3/ul (0.3-0.9); MONOCYTES % 9.6 % (0.0-11.0); NEUTROPHIL # 4.4 10^3/ul (1.6-7.5); NEUTROPHILS % 70.1 % (39.0-77.0); PLATELET COUNT 170 10^3/UL (140-415); RED BLOOD COUNT 3.48 10^6/ul (4.20-5.40); RED CELL DISTRIBUTION WIDTH 14.8 % (11.5-14.5); WHITE BLOOD COUNT 6.3 10^3/ul (4.8-10.8)
[2016-07-27] MEDS ORDERED: CLON-379 PO (14:39)
[2016-07-27 14:40] LABS: INR 1.05; PROTIME 13.7 Sec (12.2-14.2); PT RATIO 1.1
[2016-07-27 14:41] LABS: PARTIAL THROMBOPLASTIN TIME 30.3 Sec (25.0-35.0)
[2016-07-27 14:50] LABS: ALANINE AMINOTRANSFERASE 23 IU/L (13-69); ALBUMIN 5.1 g/dl (3.3-4.9); ALBUMIN/GLOBULIN RATIO 1.37; ALKALINE PHOSPHATASE 79 IU/L (42-121); ANION GAP 19 (8-16); ASPARTATE AMINO TRANSFERASE 43 IU/L (15-46); BILIRUBIN,INDIRECT 0.1 mg/dl (0-1.1); BILIRUBIN,TOTAL 0.1 mg/dl (0.2-1.3); BLOOD UREA NITROGEN 32 mg/dl (7-20); CALCIUM 9.5 mg/dl (8.4-10.2); CARBON DIOXIDE 28 mmol/L (21-31); CHLORIDE 94 mmol/L (97-110); CREATININE 5.31 mg/dl (0.44-1.00); GLUCOSE 140 mg/dl (70-220); POTASSIUM 5.5 mmol/L (3.5-5.1); SODIUM 135 mmol/L (135-144); TOTAL PROTEIN 8.8 g/dl (6.1-8.1)
[2016-07-27] MEDS ORDERED: ONDANSETRON 4 MG INJ IV PRN ×2 (15:00→15:30)
[2016-07-27] MEDS ORDERED: ACETAMINOPHEN 325 MG TAB PO PRN (15:00)
[2016-07-27 15:06] LABS: TROPONIN-I < 0.012 ng/ml (0.00-0.12)
--- NOTE | 2016-07-27 15:17 | RADRPT ---
PROCEDURE: CHEST 1VW CLINICAL INDICATION: Possible sepsis TECHNIQUE: Single frontal view of the chest was obtained COMPARISON: 06/16/2016 FINDINGS: The cardiac size is moderately enlarged, stable. Aortic vascular calcifications are demonstrated. There is no pulmonary vascular congestion. The lungs are clear. No consolidation, effusion, or pneumothorax. Mild degenerative changes of the visualized osseous structures are visualized. IMPRESSION: 1. No acute cardiopulmonary process. 2. Atherosclerosis with stable cardiomegaly. RPTAT:PP .Jani Juarez MD, Date Time Electronically viewed and signed by .Jani Juarez MD, on 07/27/2016 15:17 .V/
[2016-07-27] MEDS ORDERED: NACL 0.9% 3 ML SYG IV SCH (15:30)
[2016-07-27] MEDS ORDERED: morphine 2 MG INJ IV PRN (15:30)
[2016-07-27] MEDS ORDERED: BISACODYL 10 MG SUPP PR PRN (15:30)
[2016-07-27] MEDS ORDERED: MAGNESIUM HYDROXIDE 30ML CUP PO PRN (15:30)
[2016-07-27] MEDS ORDERED: DOCUSATE SODIUM 100 MG CAP PO PRN (15:30)
[2016-07-27] MEDS ORDERED: VANCOMYCIN IV PER PHARMACY XX SCH (15:30)
[2016-07-27 16:20] LABS: ADD UMIC YES; UR BILIRUBIN (Dip) NEGATIVE (NEGATIVE); UR BLOOD (Dip) 2+ (NEGATIVE); UR COLOR LT. YELLOW (YELLOW); UR KETONES (Dip) NEGATIVE (NEGATIVE); UR LEUKOCYTE ESTERASE (Dip) TRACE (NEGATIVE); UR NITRITE (Dip) NEGATIVE (NEGATIVE); UR TOTAL PROTEIN (Dip) 4+ (NEGATIVE); UR UROBILINOGEN (Dip) 0.2 E.U./dL (0.1-1.0)
[2016-07-27 16:36] LABS: UR CLARITY SLIGHTLY CLOUDY (CLEAR)
[2016-07-27 16:37] LABS: UR BACTERIA FEW; UR SQUAMOUS EPITHELIAL CELL MODERATE
--- NOTE | 2016-07-27 16:38 | ERA ---
ER Documentation Chief Complaint Date/Time DATE: 07/27/16 TIME: 16:35 Chief Complaint FEVER, BODY ACHES, HAD DIALISYS TODAY HPI Patient is a 8-year-old female with dialysis, diabetes, and hypertension who presents with fever and chills. The patient had dialysis this morning. She said that she had a fever afterwards. She has whole body pain and chills. She feels like she is shaking all over. She has a fistula in her left forearm. She denies cough. She makes a small amount of urine. Her primary doctor is Dr. Godoy. She has had no treatment as of yet. ROS All systems reviewed and are negative except as per history of present illness. Medications Home Meds Active Scripts Carvedilol* (Carvedilol*) 6.25 Mg Tablet, 6.25 MG PO BID, #180 TAB Prov:NANCY COVARRUBIAS MD 06/18/16 Losartan Potassium* (Cozaar*) 50 Mg Tablet, 50 MG PO BID, #180 TAB Prov:NANCY COVARRUBIAS MD 06/18/16 Reported Medications Clonidine Hcl* (Clonidine Hcl*) 0.1 Mg Tab, 0.1 MG PO BID Y for ELEVATED BLOOD PRESSURE, TAB 07/27/16 Nifedipine* (Nifedipine ER*) 90 Mg Tablet.er, 90 MG PO DAILY, TAB 05/06/16 Nph, Human Insulin Isophane (Humulin N) 100 Units/Ml Vial, 13 UNIT SC HS, VIAL 10/01/14 Multivit/Ca Carb/B Cmplx/Fa* (Laevrn-Mike*) 1 Tab Tab, 1 TAB PO DAILY, TAB 10/01/14 Insulin Human Regular* (Insulin Human Regular (NICU Use Only)*) 1 Unit/Ml Soln, 3 UNIT IJ AC LUNCH DINNER 04/19/13 Aspirin* (Aspirin* EC) 81 Mg Tablet.dr, 81 MG PO DAILY 04/19/13 Levothyroxine Sodium (Levothroid) 50 Mcg Tablet, 50 MCG PO DAILY 04/19/13 Docusate Sodium* (Colace*) 100 Mg Capsule, 100 MG PO DAILY 04/19/13 Discontinued Reported Medications Clonidine Hcl* (Clonidine Hcl*) 0.1 Mg Tab, 0.1 MG PO Q6 Y for PRN, TAB 05/06/16 Metoprolol Succinate* (Toprol XL*) 50 Mg Tab.er.24h, 50 MG PO QPM, #30 TAB 05/06/16 Discontinued Scripts Hydrocodone/Acetaminophen ([place] 10-325 Tablet) 1 Each Tablet, 1 TAB PO Q6H Y for PAIN, #7 TAB Prov:BESSY MARIEE MD 05/06/16 Allergies Allergies: Coded Allergies: Heparin Analogues (Verified Allergy, Unknown, 05/06/16) PMhx/Soc Medical and Surgical Hx: pt denies Medical Hx History of Surgery: Yes (c section, lumpectomy R breast, fistula l arm) Anesthesia Reaction: No Hx Neurological Disorder: No Hx Respiratory Disorders: No Hx Cardiac Disorders: No Hx Psychiatric Problems: No Hx Miscellaneous Medical Probl: Yes (DIALYSIS) Hx Alcohol Use: No Hx Substance Use: No Hx Tobacco Use: No Smoking Status: Current every day smoker FmHx Family History: diabetes Physical Exam Vitals Vital Signs Date Time Temp Pulse Resp B/P Pulse Ox O2 Delivery O2 Flow Rate FiO2 07/27/16 15:55 74 18 139/71 99 Room Air 07/27/16 14:16 Nasal Cannula 07/27/16 13:09 101.9 93 18 189/83 99 Physical Exam Const: No acute distress Head: Atraumatic Eyes: Normal Conjunctiva ENT: Normal External Ears, Nose and Mouth. Neck: Full range of motion..~ No meningismus. Resp: Clear to auscultation bilaterally Cardio: Regular rate and rhythm, no murmurs Abd: Soft, non tender, non distended. Normal bowel sounds Skin: No petechiae or rashes Back: No midline or flank tenderness Ext: No cyanosis, or edema Neur: Awake and alert Psych: Normal Mood and Affect Result Diagram: 07/27/16 1405 07/27/16 1405 Results 24 hrs Laboratory Tests Test 07/27/16 14:05 White Blood Count 6.310^3/ul Red Blood Count 3.4810^6/ul Hemoglobin 10.4g/dl Hematocrit 32.0% Mean Corpuscular Volume 92.0fl Mean Corpuscular Hemoglobin 29.9pg Mean Corpuscular Hemoglobin Concent 32.5g/dl Red Cell Distribution Width 14.8% Platelet Count 00775^3/UL Mean Platelet Volume 9.0fl Neutrophils % 70.1% Lymphocytes % 7.0% Monocytes % 9.6% Eosinophils % 11.8% Basophils % 0.5% Nucleated Red Blood Cells % 0.0/100WBC Neutrophils # 4.410^3/ul Lymphocytes # 0.410^3/ul Monocytes # 0.610^3/ul Eosinophils # 0.710^3/ul Basophils # 0.010^3/ul Nucleated Red Blood Cells # 0.010^3/ul Prothrombin Time 13.7Sec Prothrombin Time Ratio 1.1 INR International Normalized Ratio 1.05 Activated Partial Thromboplast Time 30.3Sec Sodium Level 135mmol/L Potassium Level 5.5mmol/L Chloride Level 94mmol/L Carbon Dioxide Level 28mmol/L Anion Gap 19 Blood Urea Nitrogen 32mg/dl Creatinine 5.31mg/dl Glucose Level 140mg/dl Lactic Acid Level 1.4mmol/L Calcium Level 9.5mg/dl Total Bilirubin 0.1mg/dl Direct Bilirubin 0.00mg/dl Indirect Bilirubin 0.1mg/dl Aspartate Amino Transf (AST/SGOT) 43IU/L Alanine Aminotransferase (ALT/SGPT) 23IU/L Alkaline Phosphatase 79IU/L Troponin I < 0.012ng/ml Total Protein 8.8g/dl Albumin 5.1g/dl Globulin 3.70g/dl Albumin/Globulin Ratio 1.37 Current Medications Medications (Trade) Dose Ordered Sig/Leland Route PRN Reason Start Time Stop Time Status Last Admin Dose Admin Acetaminophen 650 mg 650 mg ONCE STAT PO 07/27/16 13:52 07/27/16 13:53 DC 07/27/16 14:31 Cefepime HCl 50 ml @ 100 mls/hr ONCE STAT IVPB 07/27/16 13:52 07/27/16 14:21 DC 07/27/16 14:32 Vancomycin HCl (Vancocin) 250 ml @ 125 mls/hr ONCE ONCE IVPB 07/27/16 14:00 07/27/16 15:59 DC 07/27/16 14:32 Ondansetron HCl (Zofran Inj) 4 mg BRIDGE ORDER PRN IV NAUSEA AND/OR VOMITING 07/27/16 15:00 07/28/16 14:59 Acetaminophen (Tylenol Tab) 650 mg ER BRIDGE PRN PO MILD PAIN/FEVER 07/27/16 15:00 07/28/16 14:59 Aspirin (Halfprin) 81 mg DAILY PO 07/28/16 09:00 UNV Carvedilol (Coreg) 6.25 mg BID PO 07/27/16 21:00 UNV Clonidine (Catapres) 0.1 mg BID PRN PO ELEVATED BLOOD PRESSURE 07/27/16 15:00 UNV Docusate Sodium (Colace) 100 mg DAILY PO 07/28/16 09:00 UNV Levothyroxine Sodium (Synthroid) 50 mcg DAILY PO 07/28/16 09:00 UNV Losartan Potassium (Cozaar) 50 mg BID PO 07/27/16 21:00 UNV Multivit/Ca Carb/ B Cmplx/FA/Prenat (Lavern-Mike) 1 tab DAILY PO 07/28/16 09:00 UNV Nifedipine (Procardia Xl) 90 mg DAILY PO 07/28/16 09:00 UNV IV Flush (NS 3 ml) 3 ml PER PROTOCOL IV 07/27/16 15:30 UNV Ondansetron HCl (Zofran Inj) 4 mg Q6H PRN IV NAUSEA AND/OR VOMITING 07/27/16 15:30 UNV Acetaminophen (Tylenol Tab) 650 mg Q6H PRN PO PAIN LEVEL 1-3 OR FEVER 07/27/16 15:30 UNV Morphine Sulfate (morphine) 2 mg Q4H PRN IV SEVERE PAIN LEVEL 7-10 07/27/16 15:30 UNV Docusate Sodium (Colace) 100 mg Q12H PRN PO CONSTIPATION 07/27/16 15:30 UNV Magnesium Hydroxide (Milk Of Mag) 30 ml DAILY PRN PO CONSTIPATION 07/27/16 15:30 UNV Bisacodyl (Dulcolax Supp) 10 mg DAILY PRN [place] CONSTIPATION 07/27/16 15:30 UNV Famotidine (Pepcid) 20 mg Q12 PO 07/27/16 21:00 UNV Vancomycin HCl (Vanco Iv Per Pharmacy) VANCOMYCIN PER PHARMACY PER PROTOCOL XX 07/27/16 15:30 UNV Insulin Aspart (Novolog Insulin Pen) NOVOLOG *MODERATE* ALGORITHM WITH MEALS BEDTIME SC 07/27/16 18:00 UNV Miscellaneous Information (* Miscellaneous Pharmacy Order) HYPOGLYCEMIA PROTOCOL w... ONCE ONCE XX 07/27/16 16:30 07/27/16 16:31 UNV Miscellaneous Information (* Miscellaneous Pharmacy Order) Discontinue Glyburide, Glipizide,... ONCE ONCE XX 07/27/16 16:30 07/27/16 16:31 UNV Miscellaneous Information Discontinue all previ... ONCE ONCE XX 07/27/16 16:30 07/27/16 16:31 UNV Cefepime HCl (Maxipime 1gm/50 ml (Pmx)) 50 ml @ 100 mls/hr Q12 IVPB 07/27/16 21:00 UNV Procedures/MDM Patient is a 71-year-old female with dialysis who presents with fever. The patient has a full septic workup performed with blood cultures, laboratory studies, and a urinalysis is pending. At this point however I doubt sepsis. She was given Tylenol for fever and was given broad-spectrum antibiotics with vancomycin and cefepime. I did not want to give her normal saline fluid bolus as she is a dialysis patient. The patient will be admitted to Dr. Corbett to an observation bed as cultures grow out. At this point I doubt pneumonia. She has mild hyperkalemia with a potassium of 5.5. She has anemia but does not require transfusion. Departure Diagnosis: Primary Impression: Fever Qualified Code: R50.9 - Fever, unspecified fever cause Additional Impressions: Hyperkalemia Anemia Qualified Code: D64.9 - Anemia, unspecified type BESSY MARIEE MD Jul 27, 2016 16:38
--- NOTE | 2016-07-27 18:02 | HP ---
DATE OF ADMISSION: 07/27/2016 PRIMARY CARE PHYSICIAN: Dr. Corbett. OUTPATIENT FORM TAMPER: MELISSA QUINONES MD. CHIEF COMPLAINT ON ADMISSION: Fevers at dialysis. HISTORY OF PRESENT ILLNESS: This is a 71-year-old female with history of hypertension, diabetes wolfgang litus, hyperlipidemia, hypothyroidism, end-stage renal disease on hemodialysis every Tuesday, and Tuesday via a left upper extremity AV fistula who was noted to have fevers at dialysis today . The patient reports that she was in her usual state of health until last night when she had episo pancho of chills at home and reports also subjective fever at that time. She woke up this morning and she went to dialysis. Apparently she had an episode of nausea, vomiting. She has been having ongoi ng chronic left lower quadrant abdominal pain so far. She was told that it was secondary to constip ation and has been given morphine for pain control chronically. At dialysis this morning, she was n oted to have fevers apparently at dialysis. She did complete dialysis and went home. She was told by the pharmacy technician assistant that she probably should go to the emergency department since she is having fev ers. The patient therefore came to the ER and she was noted to have a fever with temperature up to 101.9. She is having chills on and off. She denies nausea or vomiting currently. She denies any c hest pain, but reported ongoing suprapubic tube to left lower quadrant pain. She does make some min or urine and reports dysuria and pain with urination. She is currently hemodynamically stable. She has been pancultured in the ER. I have requested a straight catheterization for UA and urine cultu re to be sent. She has been given a dose of vancomycin and cefepime already. Lactic acid is within normal 1.4. White blood cell count is within normal currently. I will contact her actuary clerk fo r dialysis needs. She is being admitted to a medical/surgical bed on observation for these fevers w hile awaiting cultures and receiving antibiotics. ALLERGIES: HEPARIN AND HEPARIN ANALOGUES. PAST MEDICAL HISTORY: 1. Hypertension. 2. Diabetes mellitus. 3. Hyperlipidemia. 4. Hypothyroidism. 5. End-stage renal disease on hemodialysis every Tuesday, and Tuesday. PAST SURGICAL HISTORY: 1. Status post left partial thyroidectomy. 2. Status post lumpectomy of the right breast. 3. Status post left upper extremity AV fistula placement. SOCIAL HISTORY: The patient lives with her daughter who is at bedside and was kind enough to transl ate. The patient does not smoke, drink alcohol or do drugs. REVIEW OF SYSTEMS: As per HPI. OUTPATIENT MEDICATIONS: 1. Carvedilol 6.25 mg p.o. b.i.d. 2. Clonidine 0.1 mg p.o. b.i.d. p.r.n. systolic blood pressure above 160. 3. Cozaar 50 mg p.o. b.i.d. 4. Nifedipine ER 90 mg p.o. daily. 5. Aspirin 81 mg p.o. daily. 6. Colace 100 mg p.o. daily. 7. NPH 13 units subcutaneously at bedtime. 8. Levothyroxine 50 mcg p.o. daily. 9. Regular insulin 3 units with lunch and dinner. 10. Lavern-Mike 1 tab p.o. daily. PHYSICAL EXAMINATION: VITAL SIGNS: Temperature 101.9, heart rate of 74, sinus rhythm, respiratory rate 18, blood pressure 139/71. The patient is saturating 99% on room air. GENERAL: She is alert and oriented x4. She seems to be having chills currently, and she feels warm . HEENT: Pupils are equally round and reactive to light. Extraocular muscles are intact. Anicteric sclerae. NECK: No JVD, no thyromegaly noted. HEART: Regular rate and rhythm. LUNGS: Clear to auscultation bilaterally. ABDOMEN: Soft, nondistended. She does have tenderness to palpation in suprapubic left lower quadra nt area. Bowel sounds are present. EXTREMITIES: No edema, clubbing or cyanosis. She is noted to have a left forearm AV fistula for di alysis access with good thrill. NEUROLOGIC: Grossly intact. LABORATORY DATA: White blood cell count is 6.3, hemoglobin 10.4, hematocrit 32.0, platelet count of 170. Chemistry with a sodium of 135, potassium 5.5, chloride of 94, bicarbonate of 28, BUN 32, cre atinine 5.31, glucose 140, lactic acid 1.4. LFTs are within normal. Troponin less than 0.012, albu min of 5.1, total protein of 8.8. INR is 1.05. PT 13.7, PTT 30.3. Urinalysis and urine cultures a re still pending currently. Blood cultures have been drawn. Chest x-ray shows no acute cardiopulmonary process. Of note, the patient had a CAT scan of the abdo men and pelvis on 06/16/2016 without contrast that showed no mass, lymphadenopathy or focal acute in flammatory process at that time. EKG shows normal sinus rhythm, no ST or T-wave abnormalities. ASSESSMENT AND PLAN: This is a 71-year-old female with: 1. Fevers that may be secondary to urinary tract infection based on her symptoms. UA, urine cultur e is pending. Since she is a dialysis patient, she is on vancomycin and cefepime currently. We guido l follow up on the cultures. She is admitted to a medical/surgical bed. She is currently hemodynam ically stable. 2. End-stage renal disease on hemodialysis. She was dialyzed today successfully. She is next due for dialysis this coming . We will contact her actuary clerk. Continue outpatient medicatio ns. 3. Diabetes mellitus. Check hemoglobin A1c. We will start her on a sliding scale insulin and I wi ll put her on Lantus as she is on NPH dosing and also with premeal insulin and monitor her blood sug ars. She is on a diabetic renal diet. 4. Hypertension. Resume outpatient medication for blood pressure control. 5. Hypothyroidism. Continue Synthroid. 6. Hyperlipidemia. Continue statin therapy. 7. Prophylaxis: Sequential compression devices to lower extremity for deep venous thrombosis proph ylaxis. Pepcid for gastrointestinal prophylaxis. DISPOSITION: Patient is admitted to a medical/surgical bed on observation and will follow up on her cultures for further antibiotic needs. Dictated By: EUGENE LIAO/LOLA Conf#: [id number] DID#: [id number]
[2016-07-27 18:44] VITALS: TEMP 99.5
[2016-07-27] MEDS ORDERED: GLUCOSE GEL 15 GRAM TUBE BUCCAL PRN (19:00)
[2016-07-27] MEDS ORDERED: GLUCOSE GEL 15 GRAM TUBE PO PRN ×2 (19:00)
[2016-07-27] MEDS ORDERED: DEXTROSE 50% 50 ML SYRINGE IV PRN ×2 (19:00)
[2016-07-27] MEDS ORDERED: GLUCAGON 1 MG INJ IM PRN (19:00)
[2016-07-27 19:48] VITALS: Ht 157.5 cm; Wt 77.5 kg
[2016-07-27 19:49] VITALS: BP 154/74; PULSE 93; RESP 20
[2016-07-27] MEDS: ACETAMINOPHEN 325 MG TAB PO PRN (19:59)
[2016-07-27] MEDS ORDERED: CEFEPIME 1GM/50 ML (PMX) 50 ML IVPB SCH (20:00)
[2016-07-27] MEDS: INSULIN ASPART [NOVOLOG] 3 ML PEN SC SCH (21:00)
[2016-07-27] MEDS: FAMOTIDINE 20 MG TAB PO SCH (21:40)
[2016-07-27] MEDS: LOSARTAN 50 MG TAB PO SCH (21:40)
[2016-07-28 00:02] VITALS: BP 158/76; PULSE 78; RESP 18
[2016-07-28 04:50] VITALS: BP 142/67; PULSE 85; RESP 20
[2016-07-28] MEDS: ACETAMINOPHEN 325 MG TAB PO PRN (05:03)
[2016-07-28 05:53] LABS: ADD SCAN DIFF NO
[2016-07-28 05:58] LABS: BASOPHILS % 0.3 % (0.0-2.0); EOSINOPHILS # 0.6 10^3/ul (0.0-0.5); EOSINOPHILS % 9.1 % (0.0-7.0); HEMATOCRIT 29.2 % (37.0-47.0); HEMOGLOBIN 9.4 g/dl (12.0-16.0); LYMPHOCYTES # 0.9 10^3/ul (0.8-2.9); LYMPHOCYTES % 13.5 % (15.0-51.0); MEAN CORPUSCULAR HEMOGLOBIN 29.9 pg (29.0-33.0); MEAN CORPUSCULAR HGB CONC 32.2 g/dl (32.0-37.0); MEAN PLATELET VOLUME 9.4 fl (7.4-10.4); MONOCYTE # 0.8 10^3/ul (0.3-0.9); MONOCYTES % 11.8 % (0.0-11.0); NEUTROPHIL # 4.2 10^3/ul (1.6-7.5); NEUTROPHILS % 64.5 % (39.0-77.0); PLATELET COUNT 145 10^3/UL (140-415); RED BLOOD COUNT 3.14 10^6/ul (4.20-5.40); RED CELL DISTRIBUTION WIDTH 14.6 % (11.5-14.5); WHITE BLOOD COUNT 6.5 10^3/ul (4.8-10.8)
[2016-07-28 06:38] LABS: ALBUMIN 4.4 g/dl (3.3-4.9); ALBUMIN/GLOBULIN RATIO 1.51; CALCIUM 9.1 mg/dl (8.4-10.2); CREATININE 7.18 mg/dl (0.44-1.00); PHOSPHORUS 4.5 mg/dl (2.5-4.9); POTASSIUM 5.1 mmol/L (3.5-5.1); TOTAL PROTEIN 7.3 g/dl (6.1-8.1)
[2016-07-28 07:37] VITALS: BP 139/71; RESP 18
[2016-07-28] MEDS: LEVOTHYROXINE 50 MCG TAB PO SCH (07:56)
[2016-07-28] MEDS: LOSARTAN 50 MG TAB PO SCH ×2 (07:57→21:24)
[2016-07-28] MEDS: INSULIN ASPART [NOVOLOG] 3 ML PEN SC SCH ×4 (08:01→21:00)
[2016-07-28] MEDS: ASPIRIN (EC) 81 MG TAB PO SCH (08:04)
[2016-07-28] MEDS: MULTIVIT/CA CARB/B CMPLX/FA TAB PO SCH (08:04)
[2016-07-28] MEDS: DOCUSATE SODIUM 100 MG CAP PO SCH (08:04)
[2016-07-28] MEDS: NIFEdipine (XL) 90 MG TAB PO SCH (08:04)
--- NOTE | 2016-07-28 13:12 | CONS ---
Date/Time of Note Date/Time of Note DATE: 07/28/16 TIME: 13:12 Assessment/Plan Assessment/Plan Additional Assessment/Plan 71-year-old female with: 1. Fevers 2. End-stage renal disease on hemodialysis. 3. Diabetes mellitus. 4. Hypertension. 5. Hypothyroidism. 6. Hyperlipidemia. 7. Anemia, Chronic 8. Mineral Bone Disease, Chronic HD TTS , Next HD tomorrow UF as tolerated KENNEDY with HD Cont outpt MEd Rx for MBD and HTN Renal dose IV abx rx ADA Renal Diet Check phos in am Thank you for the opportunity to participate in the care of Ms Ko Consultation Date/Type/Reason Admit Date/Time Jul 27, 2016 at 14:53 Type of Consultation: Renal Reason for Consultation ESRD Referring Provider: EUGENE BURCIAGA Hx of Present Illness 71-year-old female with history of hypertension, diabetes mellitus, hyperlipidemia, hypothyroidism, end-stage renal disease on hemodialysis every Tuesday, and Tuesday via a left upper extremity AV fistula who was noted to have fevers at dialysis and sent to [facility] for further evaluation and treatment. Describes having chills on and off,denies nausea or vomiting currently. She denies any chest pain. She does make somurine and reports dysuria and pain with urination and has suprapubic pain. Nephrology consulted for ESRD. Due for HD tomorrow as per HPI Past Medical History Medical History: high cholesterol, hypertension, hypothyroid, renal disease Past Surgical History Past Surgical Hx: other (LUE AVF) Family History Significant Family History: no pertinent family hx Social History Alcohol Use: none Smoking Status: Never smoker Drug Use: none Exam/Review of Systems Vital Signs Vitals Vital Signs Date Time Temp Pulse Resp B/P Pulse Ox O2 Delivery O2 Flow Rate FiO2 07/28/16 07:37 98.9 77 18 139/71 96 07/28/16 04:50 Room Air Intake and Output 07/27/16 07/27/16 07/28/16 15:00 23:00 07:00 Intake Total 240 ml Output Total 200 ml Balance 40 ml Exam Constitutional: alert, oriented, No distress Head: atraumatic, normocephalic Eyes: EOMI ENMT: mucosa pink and moist Neck: No jvd Respiratory: clear to auscultation, No diminished breath sounds, No labored breathing Cardiovascular: edema, regular rate and rhythm Gastrointestinal: soft, tender (S), No mass, No rebound or guarding Neurological: PROFESSIONAL SERVICES SPECIALIST II-XII intact, nl mental status, No confused, No lethargic Skin: No diaphoresis Results Result Diagram: 07/28/16 0455 07/28/16 0455 Results 24 hrs Laboratory Tests Test 07/27/16 14:05 07/27/16 15:52 07/27/16 16:55 07/27/16 20:22 White Blood Count 6.3 # Red Blood Count 3.48 L Hemoglobin 10.4 L Hematocrit 32.0 L Mean Corpuscular Volume 92.0 Mean Corpuscular Hemoglobin 29.9 Mean Corpuscular Hemoglobin Concent 32.5 Red Cell Distribution Width 14.8 H Platelet Count 170 Mean Platelet Volume 9.0 Neutrophils % 70.1 Lymphocytes % 7.0 L Monocytes % 9.6 Eosinophils % 11.8 H Basophils % 0.5 Nucleated Red Blood Cells % 0.0 Neutrophils # 4.4 Lymphocytes # 0.4 L Monocytes # 0.6 Eosinophils # 0.7 H Basophils # 0.0 Nucleated Red Blood Cells # 0.0 Prothrombin Time 13.7 Prothrombin Time Ratio 1.1 INR International Normalized Ratio 1.05 Activated Partial Thromboplast Time 30.3 Sodium Level 135 Potassium Level 5.5 H Chloride Level 94 L Carbon Dioxide Level 28 Anion Gap 19 H Blood Urea Nitrogen 32 H Creatinine 5.31 H Glucose Level 140 Lactic Acid Level 1.4 1.0 0.9 Calcium Level 9.5 Total Bilirubin 0.1 L Direct Bilirubin 0.00 Indirect Bilirubin 0.1 Aspartate Amino Transf (AST/SGOT) 43 Alanine Aminotransferase (ALT/SGPT) 23 Alkaline Phosphatase 79 Troponin I < 0.012 Total Protein 8.8 H Albumin 5.1 H Globulin 3.70 H Albumin/Globulin Ratio 1.37 Urine Color LT. YELLOW Urine Clarity SLIGHTLY CLOUDY Urine pH 8.0 Urine Specific [place] 1.015 Urine Ketones NEGATIVE Urine Nitrite NEGATIVE Urine Bilirubin NEGATIVE Urine Urobilinogen 0.2 E.U./dL Urine Leukocyte Esterase TRACE H Urine Microscopic RBC 10-25 Urine Microscopic WBC 25-50 Urine Squamous Epithelial Cells MODERATE Urine Bacteria FEW Urine Hemoglobin 2+ H Urine Glucose 0.25% H Urine Total Protein 4+ H Test 07/27/16 21:34 07/28/16 04:55 07/28/16 07:51 07/28/16 11:50 Bedside Glucose 177 150 105 White Blood Count 6.5 Red Blood Count 3.14 L Hemoglobin 9.4 L Hematocrit 29.2 L Mean Corpuscular Volume 93.0 Mean Corpuscular Hemoglobin 29.9 Mean Corpuscular Hemoglobin Concent 32.2 Red Cell Distribution Width 14.6 H Platelet Count 145 Mean Platelet Volume 9.4 Neutrophils % 64.5 Lymphocytes % 13.5 L Monocytes % 11.8 H Eosinophils % 9.1 H Basophils % 0.3 Nucleated Red Blood Cells % 0.0 Neutrophils # 4.2 Lymphocytes # 0.9 Monocytes # 0.8 Eosinophils # 0.6 H Basophils # 0.0 Nucleated Red Blood Cells # 0.0 Sodium Level 135 Potassium Level 5.1 Chloride Level 95 L Carbon Dioxide Level 28 Anion Gap 17 H Blood Urea Nitrogen 43 #H Creatinine 7.18 H Glucose Level 122 Hemoglobin A1c 6.3 H Calcium Level 9.1 Phosphorus Level 4.5 Magnesium Level 2.0 Total Bilirubin 0.0 L Direct Bilirubin 0.00 Indirect Bilirubin 0.0 Aspartate Amino Transf (AST/SGOT) 26 Alanine Aminotransferase (ALT/SGPT) 25 Alkaline Phosphatase 66 Total Protein 7.3 # Albumin 4.4 Globulin 2.90 Albumin/Globulin Ratio 1.51 Medications Medications Current Medications Aspirin (Halfprin) 81 mg DAILY PO Last administered on 07/28/16 08:04; Admin Dose 81 MG; Start 07/28/16 at 09:00 Carvedilol (Coreg) 6.25 mg BID PO Last administered on 07/28/16 07:58; Admin Dose 6.25 MG; Start 07/27/16 at 21:00 Clonidine (Catapres) 0.1 mg BID PRN PO ELEVATED BLOOD PRESSURE; Start 07/27/16 at 15:00 Docusate Sodium (Colace) 100 mg DAILY PO Last administered on 07/28/16 08:04; Admin Dose 100 MG; Start 07/28/16 at 09:00 Losartan Potassium (Cozaar) 50 mg BID PO Last administered on 07/28/16 07:57; Admin Dose 50 MG; Start 07/27/16 at 21:00 Multivit/Ca Carb/ B Cmplx/FA/Prenat (Lavern-Mike) 1 tab DAILY PO Last administered on 07/28/16 08:04; Admin Dose 1 TAB; Start 07/28/16 at 09:00 Nifedipine (Procardia Xl) 90 mg DAILY PO Last administered on 07/28/16 08:04; Admin Dose 90 MG; Start 07/28/16 at 09:00 Ondansetron HCl (Zofran Inj) 4 mg Q6H PRN IV NAUSEA AND/OR VOMITING; Start at 15:30 Acetaminophen (Tylenol Tab) 650 mg Q6H PRN PO PAIN LEVEL 1-3 OR FEVER Last administered on 07/28/16 05:03; Admin Dose 650 MG; Start 07/27/16 at 15:30 Morphine Sulfate (morphine) 2 mg Q4H PRN IV SEVERE PAIN LEVEL 7-10; Start 07/27 at 15:30 Docusate Sodium (Colace) 100 mg Q12H PRN PO CONSTIPATION; Start 07/27/16 at 15: 30 Magnesium Hydroxide (Milk Of Mag) 30 ml DAILY PRN PO CONSTIPATION; Start at 15:30 Bisacodyl (Dulcolax Supp) 10 mg DAILY PRN [place] CONSTIPATION; Start 07/27/16 at 15 :30 Famotidine (Pepcid) 20 mg Q24H PO Last administered on 07/27/16 21:40; Admin Dose 20 MG; Start 07/27/16 at 21:00 Miscellaneous Information 1 ea NOTE XX ; Start 07/27/16 at 19:00 Glucose (Glutose) 15 gm Q15M PRN PO DECREASED GLUCOSE; Start 07/27/16 at 19:00 Glucose (Glutose) 22.5 gm Q15M PRN PO DECREASED GLUCOSE; Start 07/27/16 at 19: 00 Dextrose (D50w Syringe) 25 ml Q15M PRN IV DECREASED GLUCOSE; Start 07/27/16 at 19:00 Dextrose (D50w Syringe) 50 ml Q15M PRN IV DECREASED GLUCOSE; Start 07/27/16 at 19:00 Glucagon (Glucagen) 1 mg Q15M PRN IM DECREASED GLUCOSE; Start 07/27/16 at 19:00 Glucose 15 gm 15 gm Q15M PRN BUCCAL DECREASED GLUCOSE; Start 07/27/16 at 19:00 Cefepime HCl (Maxipime 1gm/50 ml (Pmx)) 50 ml @ 100 mls/hr Q24H IVPB ; Start at 14:00 Miscellaneous Information (*Rx Drug Level Order Reminder*) VANCOMYCIN RANDOM LEVEL ON... ONCE ONCE XX ; Start 07/29/16 at 05:00; Stop 07/29/16 at 05:01 Procedures Procedures ECHNIQUE: Single frontal view of the chest was obtained COMPARISON: 06/16/2016 FINDINGS: The cardiac size is moderately enlarged, stable. Aortic vascular calcifications are demonstrated. There is no pulmonary vascular congestion. The lungs are clear. No consolidation, effusion, or pneumothorax. Mild degenerative changes of the visualized osseous structures are visualized. IMPRESSION: 1. No acute cardiopulmonary process. 2. Atherosclerosis with stable cardiomegaly. COLLEEN PERAZA MD Jul 28, 2016 13:12
[2016-07-28] MEDS: CEFEPIME 1GM/50 ML (PMX) 50 ML IVPB SCH (15:34)
--- NOTE | 2016-07-28 16:29 | PN ---
Date/Time of Note Date/Time of Note DATE: 07/28/16 TIME: 15:47 Assessment/Plan VTE Prophylaxis VTE Prophylaxis Intervention: SCD's Lines/Catheters IV Catheter Type (from Nrsg): Saline Lock Assessment/Plan Assessment/Plan 71-year-old female with: 1. Fevers, unclear etiology. Patient with chronic abdo pain. LFTs wnl. Check GB US Urine cx and blood cx NGTD Continue with current meds Patient on HD 2. End-stage renal disease on hemodialysis. Nephrology consulted Patient due for HD tomorrow Continue outpatient medications. 3. Diabetes mellitus. A1c. ADA/diabetic diet Continue sliding scale insulin, Continue Lantus with premeal insulin and monitor her blood sugars. 4. Hypertension. Resume outpatient medication for blood pressure control. 5. Hypothyroidism. Continue Synthroid. 6. Hyperlipidemia. Continue statin therapy. 7. Chronic abdominal pain: LFTS wnl, Hx of cholelithiasis per primary spreader operator automatic, check GB US given fevers but LFTs wnl. Prophylaxis: Sequential compression devices to lower extremity for deep venous thrombosis prophylaxis. Pepcid for gastrointestinal prophylaxis. DISPOSITION: Medical/surgical observation and will follow up on cultures and GB US Subjective 24 Hr Interval Summary Free Text/Dictation Patient doing OK Still with chronic pain but WBC unchanged and afebrile currently HD tomorrow and repeat GB US today Exam/Review of Systems Vital Signs Vitals Vital Signs Date Time Temp Pulse Resp B/P Pulse Ox O2 Delivery O2 Flow Rate FiO2 07/28/16 07:37 98.9 77 18 139/71 96 07/28/16 04:50 Room Air Intake and Output 07/27/16 07/27/16 07/28/16 15:00 23:00 07:00 Intake Total 240 ml Output Total 200 ml Balance 40 ml Exam Constitutional: alert, obese, oriented Respiratory: clear to auscultation, normal air movement Cardiovascular: nl pulses, regular rate and rhythm Gastrointestinal: non-tender, soft Results Result Diagram: 07/28/16 0455 07/28/16 0455 Results 24 hrs Laboratory Tests Test 07/27/16 15:52 07/27/16 16:55 07/27/16 20:22 07/27/16 21:34 Urine Color LT. YELLOW Urine Clarity SLIGHTLY CLOUDY Urine pH 8.0 Urine Specific [place] 1.015 Urine Ketones NEGATIVE Urine Nitrite NEGATIVE Urine Bilirubin NEGATIVE Urine Urobilinogen 0.2 E.U./dL Urine Leukocyte Esterase TRACE H Urine Microscopic RBC 10-25 Urine Microscopic WBC 25-50 Urine Squamous Epithelial Cells MODERATE Urine Bacteria FEW Urine Hemoglobin 2+ H Urine Glucose 0.25% H Urine Total Protein 4+ H Lactic Acid Level 1.0 0.9 Bedside Glucose 177 Test 07/28/16 04:55 07/28/16 07:51 07/28/16 11:50 White Blood Count 6.5 Red Blood Count 3.14 L Hemoglobin 9.4 L Hematocrit 29.2 L Mean Corpuscular Volume 93.0 Mean Corpuscular Hemoglobin 29.9 Mean Corpuscular Hemoglobin Concent 32.2 Red Cell Distribution Width 14.6 H Platelet Count 145 Mean Platelet Volume 9.4 Neutrophils % 64.5 Lymphocytes % 13.5 L Monocytes % 11.8 H Eosinophils % 9.1 H Basophils % 0.3 Nucleated Red Blood Cells % 0.0 Neutrophils # 4.2 Lymphocytes # 0.9 Monocytes # 0.8 Eosinophils # 0.6 H Basophils # 0.0 Nucleated Red Blood Cells # 0.0 Sodium Level 135 Potassium Level 5.1 Chloride Level 95 L Carbon Dioxide Level 28 Anion Gap 17 H Blood Urea Nitrogen 43 #H Creatinine 7.18 H Glucose Level 122 Hemoglobin A1c 6.3 H Calcium Level 9.1 Phosphorus Level 4.5 Magnesium Level 2.0 Total Bilirubin 0.0 L Direct Bilirubin 0.00 Indirect Bilirubin 0.0 Aspartate Amino Transf (AST/SGOT) 26 Alanine Aminotransferase (ALT/SGPT) 25 Alkaline Phosphatase 66 Total Protein 7.3 # Albumin 4.4 Globulin 2.90 Albumin/Globulin Ratio 1.51 Bedside Glucose 150 105 Medications Medications Current Medications Aspirin (Halfprin) 81 mg DAILY PO Last administered on 07/28/16 08:04; Admin Dose 81 MG; Start 07/28/16 at 09:00 Carvedilol (Coreg) 6.25 mg BID PO Last administered on 07/28/16 07:58; Admin Dose 6.25 MG; Start 07/27/16 at 21:00 Clonidine (Catapres) 0.1 mg BID PRN PO ELEVATED BLOOD PRESSURE; Start 07/27/16 at 15:00 Docusate Sodium (Colace) 100 mg DAILY PO Last administered on 07/28/16 08:04; Admin Dose 100 MG; Start 07/28/16 at 09:00 Losartan Potassium (Cozaar) 50 mg BID PO Last administered on 07/28/16 07:57; Admin Dose 50 MG; Start 07/27/16 at 21:00 Multivit/Ca Carb/ B Cmplx/FA/Prenat (Lavern-Mike) 1 tab DAILY PO Last administered on 07/28/16 08:04; Admin Dose 1 TAB; Start 07/28/16 at 09:00 Nifedipine (Procardia Xl) 90 mg DAILY PO Last administered on 07/28/16 08:04; Admin Dose 90 MG; Start 07/28/16 at 09:00 Ondansetron HCl (Zofran Inj) 4 mg Q6H PRN IV NAUSEA AND/OR VOMITING; Start at 15:30 Acetaminophen (Tylenol Tab) 650 mg Q6H PRN PO PAIN LEVEL 1-3 OR FEVER Last administered on 07/28/16 05:03; Admin Dose 650 MG; Start 07/27/16 at 15:30 Morphine Sulfate (morphine) 2 mg Q4H PRN IV SEVERE PAIN LEVEL 7-10; Start 07/27 at 15:30 Docusate Sodium (Colace) 100 mg Q12H PRN PO CONSTIPATION; Start 07/27/16 at 15: 30 Magnesium Hydroxide (Milk Of Mag) 30 ml DAILY PRN PO CONSTIPATION; Start at 15:30 Bisacodyl (Dulcolax Supp) 10 mg DAILY PRN [place] CONSTIPATION; Start 07/27/16 at 15 :30 Famotidine (Pepcid) 20 mg Q24H PO Last administered on 07/27/16 21:40; Admin Dose 20 MG; Start 07/27/16 at 21:00 Miscellaneous Information 1 ea NOTE XX ; Start 07/27/16 at 19:00 Glucose (Glutose) 15 gm Q15M PRN PO DECREASED GLUCOSE; Start 07/27/16 at 19:00 Glucose (Glutose) 22.5 gm Q15M PRN PO DECREASED GLUCOSE; Start 07/27/16 at 19: 00 Dextrose (D50w Syringe) 25 ml Q15M PRN IV DECREASED GLUCOSE; Start 07/27/16 at 19:00 Dextrose (D50w Syringe) 50 ml Q15M PRN IV DECREASED GLUCOSE; Start 07/27/16 at 19:00 Glucagon (Glucagen) 1 mg Q15M PRN IM DECREASED GLUCOSE; Start 07/27/16 at 19:00 Glucose 15 gm 15 gm Q15M PRN BUCCAL DECREASED GLUCOSE; Start 07/27/16 at 19:00 Cefepime HCl (Maxipime 1gm/50 ml (Pmx)) 50 ml @ 100 mls/hr Q24H IVPB Last administered on 07/28/16t 15:34; Admin Dose 100 MLS/HR; Start 07/28/16 at 14:00 Miscellaneous Information (*Rx Drug Level Order Reminder*) VANCOMYCIN RANDOM LEVEL ON... ONCE ONCE XX ; Start 07/29/16 at 05:00; Stop 07/29/16 at 05:01 EUGENE BURCIAGA Jul 28, 2016 15:57
[2016-07-28 20:15] VITALS: BP 149/66; RESP 20
[2016-07-28 21:00] VITALS: BP 149/66; PULSE 67; RESP 18
[2016-07-28] MEDS: FAMOTIDINE 20 MG TAB PO SCH (21:24)
[2016-07-29] VITALS (9 sets, daily range): BP systolic 114–157; BP diastolic 55–77; PULSE 71–83; RESP 18
[2016-07-29 05:46] LABS: ADD SCAN DIFF NO
[2016-07-29 06:02] LABS: BASOPHILS % 0.2 % (0.0-2.0); EOSINOPHILS # 1.1 10^3/ul (0.0-0.5); EOSINOPHILS % 23.8 % (0.0-7.0); HEMATOCRIT 29.8 % (37.0-47.0); HEMOGLOBIN 9.5 g/dl (12.0-16.0); LYMPHOCYTES # 0.8 10^3/ul (0.8-2.9); MEAN CORPUSCULAR HEMOGLOBIN 29.8 pg (29.0-33.0); MEAN CORPUSCULAR HGB CONC 31.9 g/dl (32.0-37.0); MEAN CORPUSCULAR VOLUME 93.4 fl (82.0-101.0); MEAN PLATELET VOLUME 9.6 fl (7.4-10.4); MONOCYTE # 0.5 10^3/ul (0.3-0.9); MONOCYTES % 11.3 % (0.0-11.0); NEUTROPHIL # 2.2 10^3/ul (1.6-7.5); NEUTROPHILS % 46.1 % (39.0-77.0); PLATELET COUNT 127 10^3/UL (140-415); RED BLOOD COUNT 3.19 10^6/ul (4.20-5.40); RED CELL DISTRIBUTION WIDTH 14.3 % (11.5-14.5); WHITE BLOOD COUNT 4.7 10^3/ul (4.8-10.8)
[2016-07-29 06:43] LABS: CALCIUM 9.2 mg/dl (8.4-10.2); CREATININE 9.38 mg/dl (0.44-1.00); POTASSIUM 5.4 mmol/L (3.5-5.1)
[2016-07-29 06:59] LABS: MAGNESIUM 2.2 mg/dl (1.7-2.5); PHOSPHORUS 5.9 mg/dl (2.5-4.9)
[2016-07-29] MEDS: INSULIN ASPART [NOVOLOG] 3 ML PEN SC SCH ×4 (08:46→21:00)
--- NOTE | 2016-07-29 10:11 | RADRPT ---
PROCEDURE: US Abdomen (right upper quadrant). CLINICAL INDICATION: Right upper quadrant abdomen pain. TECHNIQUE: Multiple real-time longitudinal and transverse images of the right upper quadrant of th e abdomen were acquired utilizing a curved array transducer. Images were reviewed on a high-resoluti on PACS workstation. COMPARISON: None FINDINGS: The liver is normal in size and diffusely increased in echogenicity. There is no focal hepatic lesion. Color Doppler and pulsed Doppler sonography demonstrate normal a ntegrade flow in the portal vein. A small amount of sludge is present in the gallbladder. The gallbladder is otherwise normal with no stones or wall thickening. There is no pericholecystic fluid collection. The bile ducts are normal with the common bile duct measuring 3.6 mm in diameter. The visualized portions of the pancreas are unremarkable with obscuration of the tail of the pancrea s. No free fluid is present. The right kidney measures 8.7 cm. There is increased echogenicity of the right kidney. There is no right renal solid mass, hydronephrosis, or calculus. Benign cysts are present in the right kidney with the largest measuring 1.7 x 2.0 cm. IMPRESSION: 1. Fatty metamorphosis of the liver. 2. Small amount of sludge in the gallbladder. No gallstones or evidence of cholecystitis. 3. Hyperechoic right kidney consistent with medical renal disease. Benign right renal cysts. 4. Otherwise unremarkable study. RPTAT: QQ .Tawanda Dubois MD, MD Date Time Electronically viewed and signed by .Tawanda Dubois MD, MD on 07/29/2016 10:10 .R/
[2016-07-29] MEDS: DOCUSATE SODIUM 100 MG CAP PO SCH (10:16)
[2016-07-29] MEDS: LEVOTHYROXINE 50 MCG TAB PO SCH (10:16)
[2016-07-29] MEDS: MULTIVIT/CA CARB/B CMPLX/FA TAB PO SCH (10:17)
[2016-07-29] MEDS: ASPIRIN (EC) 81 MG TAB PO SCH (10:17)
[2016-07-29] MEDS: LOSARTAN 50 MG TAB PO SCH ×2 (10:18→21:06)
[2016-07-29] MEDS: NIFEdipine (XL) 90 MG TAB PO SCH (10:18)
[2016-07-29] MEDS ORDERED: EPOETIN 4000 UNITS/1 ML INJ (ESRD) SC SCH (11:00)
[2016-07-29] MEDS ORDERED: VANCOMYCIN 1 GM in NS 250 ML IVPB SCH (12:00)
[2016-07-29] MEDS: CEFEPIME 1GM/50 ML (PMX) 50 ML IVPB SCH (15:05)
--- NOTE | 2016-07-29 16:03 | PN ---
Date/Time of Note Date/Time of Note DATE: 07/29/16 TIME: 15:57 Assessment/Plan VTE Prophylaxis VTE Prophylaxis Intervention: SCD's Lines/Catheters IV Catheter Type (from Nrsg): Saline Lock Assessment/Plan Assessment/Plan 71-year-old female with: 1. Fevers, unclear etiology. Patient with chronic abdo pain much better today LFTs wnl and GB US also wnl Urine cx and blood cx NGTD, D/c Vanco Continue Cefepime and if remains afebrile by AM will d/c Abx and d/c home Patient on HD 2. End-stage renal disease on hemodialysis. S/p HD today Continue outpatient medications. D/c plan home tomorrow 3. Diabetes mellitus. A1c. ADA/diabetic diet Continue sliding scale insulin, Continue Lantus with premeal insulin and monitor her blood sugars. 4. Hypertension. Resume outpatient medication for blood pressure control. 5. Hypothyroidism. Continue Synthroid. 6. Hyperlipidemia. Continue statin therapy. 7. 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 Prophylaxis: Sequential compression devices to lower extremity for deep venous thrombosis prophylaxis. Pepcid for gastrointestinal prophylaxis. DISPOSITION: D/c plan home in AM if remains afebrile. Subjective 24 Hr Interval Summary Free Text/Dictation Patient doing well, Afebrile x 24 hrs No source of infection so far, d/c Vanco D/c plan in AM Exam/Review of Systems Vital Signs Vitals Vital Signs Date Time Temp Pulse Resp B/P Pulse Ox O2 Delivery O2 Flow Rate FiO2 07/29/16 09:16 98.7 83 18 157/77 95 Room Air Intake and Output 07/28/16 07/28/16 07/29/16 15:00 23:00 07:00 Intake Total 1630 ml 300 ml Output Total 200 ml Balance 1430 ml 300 ml Exam Constitutional: alert, obese, oriented, well developed Respiratory: clear to auscultation, normal air movement Cardiovascular: nl pulses, regular rate and rhythm Gastrointestinal: non-tender, soft Musculoskeletal: nl extremities to inspection Extremities: normal pulses Neurological: DATABASES SOFTWARE CONSULTANT II-XII intact, nl mental status, nl speech, nl strength Results Result Diagram: 07/29/16 0455 07/29/16 0455 Results 24 hrs Laboratory Tests Test 07/28/16 17:31 07/28/16 21:27 07/29/16 04:55 07/29/16 08:32 Bedside Glucose 142 106 161 White Blood Count 4.7 #L Red Blood Count 3.19 L Hemoglobin 9.5 L Hematocrit 29.8 L Mean Corpuscular Volume 93.4 Mean Corpuscular Hemoglobin 29.8 Mean Corpuscular Hemoglobin Concent 31.9 L Red Cell Distribution Width 14.3 Platelet Count 127 L Mean Platelet Volume 9.6 Neutrophils % 46.1 Lymphocytes % 18.0 Monocytes % 11.3 H Eosinophils % 23.8 H Basophils % 0.2 Nucleated Red Blood Cells % 0.0 Neutrophils # 2.2 Lymphocytes # 0.8 Monocytes # 0.5 Eosinophils # 1.1 H Basophils # 0.0 Nucleated Red Blood Cells # 0.0 Sodium Level 135 Potassium Level 5.4 H Chloride Level 97 Carbon Dioxide Level 24 Anion Gap 19 H Blood Urea Nitrogen 62 H Creatinine 9.38 #H Glucose Level 102 Calcium Level 9.2 Phosphorus Level 5.9 H Magnesium Level 2.2 Random Vancomycin Level 11.6 Test 07/29/16 12:46 Bedside Glucose 177 Medications Medications Current Medications Aspirin (Halfprin) 81 mg DAILY PO Last administered on 07/29/16 10:17; Admin Dose 81 MG; Start 07/28/16 at 09:00 Carvedilol (Coreg) 6.25 mg BID PO Last administered on 07/29/16 10:18; Admin Dose 6.25 MG; Start 07/27/16 at 21:00 Clonidine (Catapres) 0.1 mg BID PRN PO ELEVATED BLOOD PRESSURE; Start 07/27/16 at 15:00 Docusate Sodium (Colace) 100 mg DAILY PO Last administered on 07/29/16 10:16; Admin Dose 100 MG; Start 07/28/16 at 09:00 Losartan Potassium (Cozaar) 50 mg BID PO Last administered on 07/29/16 10:18; Admin Dose 50 MG; Start 07/27/16 at 21:00 Multivit/Ca Carb/ B Cmplx/FA/Prenat (Lavern-Mike) 1 tab DAILY PO Last administered on 07/29/16 10:17; Admin Dose 1 TAB; Start 07/28/16 at 09:00 Nifedipine (Procardia Xl) 90 mg DAILY PO Last administered on 07/29/16 10:18; Admin Dose 90 MG; Start 07/28/16 at 09:00 Ondansetron HCl (Zofran Inj) 4 mg Q6H PRN IV NAUSEA AND/OR VOMITING; Start at 15:30 Acetaminophen (Tylenol Tab) 650 mg Q6H PRN PO PAIN LEVEL 1-3 OR FEVER Last administered on 07/28/16 05:03; Admin Dose 650 MG; Start 07/27/16 at 15:30 Morphine Sulfate (morphine) 2 mg Q4H PRN IV SEVERE PAIN LEVEL 7-10; Start 07/27 at 15:30 Docusate Sodium (Colace) 100 mg Q12H PRN PO CONSTIPATION; Start 07/27/16 at 15: 30 Magnesium Hydroxide (Milk Of Mag) 30 ml DAILY PRN PO CONSTIPATION; Start at 15:30 Bisacodyl (Dulcolax Supp) 10 mg DAILY PRN [place] CONSTIPATION; Start 07/27/16 at 15 :30 Famotidine (Pepcid) 20 mg Q24H PO Last administered on 07/28/16 21:24; Admin Dose 20 MG; Start 07/27/16 at 21:00 Miscellaneous Information 1 ea NOTE XX ; Start 07/27/16 at 19:00 Glucose (Glutose) 15 gm Q15M PRN PO DECREASED GLUCOSE; Start 07/27/16 at 19:00 Glucose (Glutose) 22.5 gm Q15M PRN PO DECREASED GLUCOSE; Start 07/27/16 at 19: 00 Dextrose (D50w Syringe) 25 ml Q15M PRN IV DECREASED GLUCOSE; Start 07/27/16 at 19:00 Dextrose (D50w Syringe) 50 ml Q15M PRN IV DECREASED GLUCOSE; Start 07/27/16 at 19:00 Glucagon (Glucagen) 1 mg Q15M PRN IM DECREASED GLUCOSE; Start 07/27/16 at 19:00 Glucose 15 gm 15 gm Q15M PRN BUCCAL DECREASED GLUCOSE; Start 07/27/16 at 19:00 Cefepime HCl 50 ml @ 100 mls/hr Q24H IVPB Last administered on 07/29/16 15:05 ; Admin Dose 100 MLS/HR; Start 07/28/16 at 14:00 Vancomycin HCl (Vancocin) 250 ml @ 125 mls/hr ONCE IVPB Last administered on t 12:55; Admin Dose 125 MLS/HR; Start 07/29/16 at 12:00; Stop 07/29/16 at 18:00 EUGENE BURCIAGA Jul 29, 2016 16:03
[2016-07-29] MEDS ORDERED: LOPERAMIDE 2 MG CAP PO PRN (21:00)
[2016-07-29] MEDS: FAMOTIDINE 20 MG TAB PO SCH (21:05)
--- NOTE | 2016-07-29 21:53 | CONS ---
Date/Time of Note Date/Time of Note DATE: 07/29/16 TIME: 21:48 Assessment/Plan Assessment/Plan Chief Complaint/Hosp Course US of Abd shows fatty liver, sludge in GB & no comment is made re left kidney ( Prob not studied) Problems: Additional Assessment/Plan Urine & blood cultures are neg Cont'd Hospitalization Reason: WOuld leave dc plans per Dr Burciaga Consultation Date/Type/Reason Admit Date/Time Jul 29, 2016 at 16:28 Initial Consult Date Type of Consultation: Renal Referring Provider: EUGENE BURCIAGA 24 HR Interval Summary Free Text/Dictation pt is in good spirits, denies complaints Exam/Review of Systems Vital Signs Vitals Vital Signs Date Time Temp Pulse Resp B/P Pulse Ox O2 Delivery O2 Flow Rate FiO2 07/29/16 20:14 99.2 77 18 131/72 95 07/29/16 09:16 Room Air Intake and Output 07/28/16 07/28/16 07/29/16 15:00 23:00 07:00 Intake Total 1630 ml 300 ml Output Total 200 ml Balance 1430 ml 300 ml Exam Pt is lying in bed comfortably Constitutional: alert, obese, oriented, well developed Psych: nl mood/affect, no complaints Head: atraumatic, normocephalic Eyes: EOMI, PERRL, nl conjunctiva, nl lids, nl sclera ENMT: nl external ears & nose, nl lips & teeth, nl nasal mucosa & septum Neck: non-tender, supple Respiratory: clear to auscultation, normal air movement Cardiovascular: nl pulses, regular rate and rhythm Gastrointestinal: nl liver, spleen, non-tender, soft Musculoskeletal: nl extremities to inspection, nl gait and stance Extremities: normal pulses Neurological: MAINTENANCE SERVICE SUPERVISOR II-XII intact, nl mental status, nl speech, nl strength Skin: nl turgor, No rash or lesions Lymph: nl lymph nodes Results Lab shows k 5.4, pt was dialyzed today Result Diagram: 07/29/16 0455 07/29/16 0455 Results 24 hrs Laboratory Tests Test 07/29/16 04:55 07/29/16 08:32 07/29/16 12:46 07/29/16 17:19 White Blood Count 4.7 #L Red Blood Count 3.19 L Hemoglobin 9.5 L Hematocrit 29.8 L Mean Corpuscular Volume 93.4 Mean Corpuscular Hemoglobin 29.8 Mean Corpuscular Hemoglobin Concent 31.9 L Red Cell Distribution Width 14.3 Platelet Count 127 L Mean Platelet Volume 9.6 Neutrophils % 46.1 Lymphocytes % 18.0 Monocytes % 11.3 H Eosinophils % 23.8 H Basophils % 0.2 Nucleated Red Blood Cells % 0.0 Neutrophils # 2.2 Lymphocytes # 0.8 Monocytes # 0.5 Eosinophils # 1.1 H Basophils # 0.0 Nucleated Red Blood Cells # 0.0 Sodium Level 135 Potassium Level 5.4 H Chloride Level 97 Carbon Dioxide Level 24 Anion Gap 19 H Blood Urea Nitrogen 62 H Creatinine 9.38 #H Glucose Level 102 Calcium Level 9.2 Phosphorus Level 5.9 H Magnesium Level 2.2 Random Vancomycin Level 11.6 Bedside Glucose 161 177 177 Test 07/29/16 21:05 Bedside Glucose 136 Medications Medications Current Medications Aspirin (Halfprin) 81 mg DAILY PO Last administered on 07/29/16 10:17; Admin Dose 81 MG; Start 07/28/16 at 09:00 Carvedilol (Coreg) 6.25 mg BID PO Last administered on 07/29/16 21:06; Admin Dose 6.25 MG; Start 07/27/16 at 21:00 Clonidine (Catapres) 0.1 mg BID PRN PO ELEVATED BLOOD PRESSURE; Start 07/27/16 at 15:00 Docusate Sodium (Colace) 100 mg DAILY PO Last administered on 07/29/16 10:16; Admin Dose 100 MG; Start 07/28/16 at 09:00 Losartan Potassium (Cozaar) 50 mg BID PO Last administered on 07/29/16 21:06; Admin Dose 50 MG; Start 07/27/16 at 21:00 Multivit/Ca Carb/ B Cmplx/FA/Prenat (Lavern-Mike) 1 tab DAILY PO Last administered on 07/29/16 10:17; Admin Dose 1 TAB; Start 07/28/16 at 09:00 Nifedipine (Procardia Xl) 90 mg DAILY PO Last administered on 07/29/16 10:18; Admin Dose 90 MG; Start 07/28/16 at 09:00 Ondansetron HCl (Zofran Inj) 4 mg Q6H PRN IV NAUSEA AND/OR VOMITING; Start at 15:30 Acetaminophen (Tylenol Tab) 650 mg Q6H PRN PO PAIN LEVEL 1-3 OR FEVER Last administered on 07/28/16 05:03; Admin Dose 650 MG; Start 07/27/16 at 15:30 Morphine Sulfate (morphine) 2 mg Q4H PRN IV SEVERE PAIN LEVEL 7-10; Start 07/27 at 15:30 Docusate Sodium (Colace) 100 mg Q12H PRN PO CONSTIPATION; Start 07/27/16 at 15: 30 Magnesium Hydroxide (Milk Of Mag) 30 ml DAILY PRN PO CONSTIPATION; Start at 15:30 Bisacodyl (Dulcolax Supp) 10 mg DAILY PRN [place] CONSTIPATION; Start 07/27/16 at 15 :30 Famotidine (Pepcid) 20 mg Q24H PO Last administered on 07/29/16 21:05; Admin Dose 20 MG; Start 07/27/16 at 21:00 Miscellaneous Information 1 ea NOTE XX ; Start 07/27/16 at 19:00 Glucose (Glutose) 15 gm Q15M PRN PO DECREASED GLUCOSE; Start 07/27/16 at 19:00 Glucose (Glutose) 22.5 gm Q15M PRN PO DECREASED GLUCOSE; Start 07/27/16 at 19: 00 Dextrose (D50w Syringe) 25 ml Q15M PRN IV DECREASED GLUCOSE; Start 07/27/16 at 19:00 Dextrose (D50w Syringe) 50 ml Q15M PRN IV DECREASED GLUCOSE; Start 07/27/16 at 19:00 Glucagon (Glucagen) 1 mg Q15M PRN IM DECREASED GLUCOSE; Start 07/27/16 at 19:00 Glucose 15 gm 15 gm Q15M PRN BUCCAL DECREASED GLUCOSE; Start 07/27/16 at 19:00 Cefepime HCl (Maxipime 1gm/50 ml (Pmx)) 50 ml @ 100 mls/hr Q24H IVPB Last administered on 07/29/16 15:05; Admin Dose 100 MLS/HR; Start 07/28/16 at 14:00 Loperamide HCl (Imodium Cap) 2 mg Q6 PRN PO DIARRHEA Last administered on 21:05; Admin Dose 2 MG; Start 07/29/16 at 21:00 MELISSA QUINONES MD Jul 29, 2016 21:53
[2016-07-30 05:47] LABS: ADD SCAN DIFF NO
[2016-07-30 06:16] VITALS: BP 159/75; RESP 18
[2016-07-30 06:17] LABS: HEMATOCRIT 29.6 % (37.0-47.0); HEMOGLOBIN 9.9 g/dl (12.0-16.0); MEAN CORPUSCULAR HEMOGLOBIN 30.7 pg (29.0-33.0); MEAN CORPUSCULAR HGB CONC 33.4 g/dl (32.0-37.0); MEAN CORPUSCULAR VOLUME 91.6 fl (82.0-101.0); MEAN PLATELET VOLUME 9.7 fl (7.4-10.4); PLATELET COUNT 127 10^3/UL (140-415); RED BLOOD COUNT 3.23 10^6/ul (4.20-5.40); RED CELL DISTRIBUTION WIDTH 14.1 % (11.5-14.5); WHITE BLOOD COUNT 4.6 10^3/ul (4.8-10.8)
[2016-07-30 06:59] LABS: CALCIUM 8.9 mg/dl (8.4-10.2); CREATININE 7.44 mg/dl (0.44-1.00); POTASSIUM 4.2 mmol/L (3.5-5.1)
[2016-07-30 07:00] LABS: PHOSPHORUS 5.5 mg/dl (2.5-4.9)
[2016-07-30] MEDS: INSULIN ASPART [NOVOLOG] 3 ML PEN SC SCH ×2 (07:59→12:09)
[2016-07-30 08:14] LABS: EOSINOPHILS # 1.6 10^3/ul (0.0-0.5); LYMPHOCYTES # 0.9 10^3/ul (0.8-2.9); MONOCYTE # 0.5 10^3/ul (0.3-0.9); NEUTROPHIL # 1.7 10^3/ul (1.6-7.5)
[2016-07-30 08:27] VITALS: BP 137/67; RESP 18
[2016-07-30] MEDS: DOCUSATE SODIUM 100 MG CAP PO SCH (09:00)
[2016-07-30] MEDS: ASPIRIN (EC) 81 MG TAB PO SCH (09:44)
[2016-07-30] MEDS: LEVOTHYROXINE 50 MCG TAB PO SCH (09:44)
[2016-07-30] MEDS: MULTIVIT/CA CARB/B CMPLX/FA TAB PO SCH (09:44)
[2016-07-30] MEDS: LOSARTAN 50 MG TAB PO SCH (09:47)
[2016-07-30] MEDS: NIFEdipine (XL) 90 MG TAB PO SCH (09:48)
[2016-07-30] MEDS ORDERED: AMOXICILLIN/CLAV 500 MG TAB PO SCH (11:00)
--- NOTE | 2016-07-30 12:14 | PN ---
Date/Time of Note Date/Time of Note DATE: 07/30/16 TIME: 12:08 Assessment/Plan VTE Prophylaxis VTE Prophylaxis Intervention: SCD's Lines/Catheters IV Catheter Type (from Nrsg): Saline Lock Assessment/Plan Assessment/Plan 71-year-old female with: 1. Fevers, unclear etiology. Patient with chronic abdo pain much better today and resolved fevers x 48 hrs LFTs wnl and GB US also wnl Urine cx and blood cx NGTD, D/c Vanco D/c home on Augmentin 500 mg po daily x 7 days. Patient on HD 2. End-stage renal disease on hemodialysis. S/p HD today Continue outpatient medications. D/c plan home today, resume outpatient HD schedule 3. Diabetes mellitus. A1c. ADA/diabetic diet Continue sliding scale insulin, Continue Lantus with premeal insulin and monitor her blood sugars. 4. Hypertension. Resume outpatient medication for blood pressure control. 5. Hypothyroidism. Continue Synthroid. 6. Hyperlipidemia. Continue statin therapy. 7. Chronic abdominal pain: LFTS wnl, G US with no gallstones .. Prophylaxis: Sequential compression devices to lower extremity for deep venous thrombosis prophylaxis. Pepcid for gastrointestinal prophylaxis. DISPOSITION: D/c home today and f/u with PCP and Nephrology outpatient. Subjective 24 Hr Interval Summary Free Text/Dictation Patient doing well and afebrile x 2 days now All w/u negative Continue Augmentin x 7 mores days along with probiotics Exam/Review of Systems Vital Signs Vitals Vital Signs Date Time Temp Pulse Resp B/P Pulse Ox O2 Delivery O2 Flow Rate FiO2 07/30/16 08:27 99.0 67 18 137/67 97 07/29/16 09:16 Room Air Intake and Output 07/29/16 07/29/16 07/30/16 15:00 23:00 07:00 Intake Total 550 ml 850 ml 400 ml Output Total 3300 ml 600 ml Balance -2750 ml 250 ml 400 ml Exam Constitutional: alert, oriented, well developed Respiratory: clear to auscultation, normal air movement Cardiovascular: nl pulses, regular rate and rhythm Gastrointestinal: non-tender, soft Musculoskeletal: nl extremities to inspection (with LUE fistula in place ) Extremities: normal pulses, other (no edema, clubbing or cyanosis ) Neurological: VENTILATION WORKER II-XII intact, nl mental status, nl speech, nl strength Results Result Diagram: 07/30/16 0440 07/30/16 0440 Results 24 hrs Laboratory Tests Test 07/29/16 12:46 07/29/16 17:19 07/29/16 21:05 07/30/16 04:40 Bedside Glucose 177 177 136 White Blood Count 4.6 L Red Blood Count 3.23 L Hemoglobin 9.9 L Hematocrit 29.6 L Mean Corpuscular Volume 91.6 Mean Corpuscular Hemoglobin 30.7 Mean Corpuscular Hemoglobin Concent 33.4 Red Cell Distribution Width 14.1 Platelet Count 127 L Mean Platelet Volume 9.7 Neutrophils % 36.0 L Band Neutrophils % 1.0 Lymphocytes % 19.0 Monocytes % 10.0 Eosinophils % 34.0 H Neutrophils # 1.7 Lymphocytes # 0.9 Monocytes # 0.5 Eosinophils # 1.6 H Sodium Level 139 Potassium Level 4.2 Chloride Level 98 Carbon Dioxide Level 30 Anion Gap 15 Blood Urea Nitrogen 41 #H Creatinine 7.44 H Glucose Level 95 Calcium Level 8.9 Test 07/30/16 04:45 07/30/16 06:13 07/30/16 07:59 Phosphorus Level 5.5 H Magnesium Level 2.0 Bedside Glucose 99 107 Medications Medications Current Medications Aspirin (Halfprin) 81 mg DAILY PO Last administered on 07/30/16 09:44; Admin Dose 81 MG; Start 07/28/16 at 09:00 Carvedilol (Coreg) 6.25 mg BID PO Last administered on 07/30/16 09:47; Admin Dose 6.25 MG; Start 07/27/16 at 21:00 Clonidine (Catapres) 0.1 mg BID PRN PO ELEVATED BLOOD PRESSURE; Start 07/27/16 at 15:00 Docusate Sodium (Colace) 100 mg DAILY PO Last administered on 07/29/16 10:16; Admin Dose 100 MG; Start 07/28/16 at 09:00 Losartan Potassium (Cozaar) 50 mg BID PO Last administered on 07/30/16 09:47; Admin Dose 50 MG; Start 07/27/16 at 21:00 Multivit/Ca Carb/ B Cmplx/FA/Prenat (Lavern-Mike) 1 tab DAILY PO Last administered on 07/30/16 09:44; Admin Dose 1 TAB; Start 07/28/16 at 09:00 Nifedipine (Procardia Xl) 90 mg DAILY PO Last administered on 07/30/16 09:48; Admin Dose 90 MG; Start 07/28/16 at 09:00 Ondansetron HCl (Zofran Inj) 4 mg Q6H PRN IV NAUSEA AND/OR VOMITING; Start at 15:30 Acetaminophen (Tylenol Tab) 650 mg Q6H PRN PO PAIN LEVEL 1-3 OR FEVER Last administered on 07/28/16 05:03; Admin Dose 650 MG; Start 07/27/16 at 15:30 Morphine Sulfate (morphine) 2 mg Q4H PRN IV SEVERE PAIN LEVEL 7-10; Start 07/27 at 15:30 Docusate Sodium (Colace) 100 mg Q12H PRN PO CONSTIPATION; Start 07/27/16 at 15: 30 Magnesium Hydroxide (Milk Of Mag) 30 ml DAILY PRN PO CONSTIPATION; Start at 15:30 Bisacodyl (Dulcolax Supp) 10 mg DAILY PRN [place] CONSTIPATION; Start 07/27/16 at 15 :30 Famotidine (Pepcid) 20 mg Q24H PO Last administered on 07/29/16 21:05; Admin Dose 20 MG; Start 07/27/16 at 21:00 Miscellaneous Information 1 ea NOTE XX ; Start 07/27/16 at 19:00 Glucose (Glutose) 15 gm Q15M PRN PO DECREASED GLUCOSE; Start 07/27/16 at 19:00 Glucose (Glutose) 22.5 gm Q15M PRN PO DECREASED GLUCOSE; Start 07/27/16 at 19: 00 Dextrose (D50w Syringe) 25 ml Q15M PRN IV DECREASED GLUCOSE; Start 07/27/16 at 19:00 Dextrose (D50w Syringe) 50 ml Q15M PRN IV DECREASED GLUCOSE; Start 07/27/16 at 19:00 Glucagon (Glucagen) 1 mg Q15M PRN IM DECREASED GLUCOSE; Start 07/27/16 at 19:00 Glucose (Glutose) 15 gm Q15M PRN BUCCAL DECREASED GLUCOSE; Start 07/27/16 at 19 :00 Loperamide HCl (Imodium Cap) 2 mg Q6 PRN PO DIARRHEA Last administered on 21:05; Admin Dose 2 MG; Start 07/29/16 at 21:00 Amoxicillin/ Clavulanate Potassium (Augmentin) 500 mg DAILY PO Last administered on 07/30/16t 11:13; Admin Dose 500 MG; Start 07/30/16 at 11:00 EUGENE BURCIAGA Jul 30, 2016 12:14
--- NOTE | 2016-07-30 12:17 | PDOCDIS ---
Discharge Instructions CONDITION Patient Condition: Stable HOME CARE INSTRUCTIONS: Special Diet: Renal/Carb Control ACTIVITY: Activity Restrictions: No Restrictions FOLLOW UP/APPOINTMENTS Appointments Follow up with PCP in 1 week Follow up with Nephrology and outpatient HD EUGENE BURCIAGA Jul 30, 2016 12:17
[2016-07-30] MEDS ORDERED: AMOX1TAB9 PO (12:18)
[2016-07-30] MEDS ORDERED: LACT1CAP57 PO (12:18)
[2016-07-30] MEDS ORDERED: LACTOBACILLUS RHAMNOSUS CAP PO SCH (13:00)
== END 2016-07-30 14:10 | disposition home or self-care (01) | DRG 689 ==
LOC: E/R 13:05 → MS2 14:53 → OBSVTOIN 07-29 16:28
PROVIDERS: ADMIT Internal Medicine; ATTEND Internal Medicine
PROC: 5A1D00Z (ICD-10-PCS; principal; 2016-07-29)
DX: N30.00 Acute cystitis without hematuria (principal); N18.6 End stage renal disease; E87.5 Hyperkalemia; I12.0 Hypertensive chronic kidney disease with stage 5 chronic kidney disease or end stage renal disease; D64.9 Anemia, unspecified; E03.9 Hypothyroidism, unspecified; E11.9 Type 2 diabetes mellitus without complications; F17.200 Nicotine dependence, unspecified, uncomplicated; Z99.2 Dependence on renal dialysis; E78.5 Hyperlipidemia, unspecified; R10.32 Left lower quadrant pain
CPT/HCPCS: 36415; 71010; 76705; 80048; 80053; 80202; 81001; 82962; 83036; 83605; 83735; 84100; 84484; 85025; 85610; 85730; 87040; 87045; 87086; 90935; 93005; 96374; 96375; A4310; G0378; J0692; J1815; J3370; Q4081

== ENCOUNTER 2017-02-01 01:02 | Inpatient (IN) | payer BC ==
[2017-02-01] VITALS (17 sets, daily range): BP systolic 133–185; BP diastolic 58–91; PULSE 63–73; RESP 18–20; TEMP 98.3; Ht 149.9 cm; Wt 74.9 kg
[~2017-02-01] VITALS: Ht 149.9 cm; Wt 74.9 kg
[~2017-02-01 01:02] MED LIST changes: +AMOX1TAB9 PO; -HYDR-902 PO; +LACT1CAP57 PO; -METO50TA16 PO
[2017-02-01] MEDS ORDERED: morphine 4 MG/ML VIAL IV STA (01:14)
[2017-02-01] MEDS ORDERED: ONDANSETRON 4 MG INJ IV STA (01:14)
--- NOTE | 2017-02-01 01:49 | RADRPT ---
PROCEDURE: Chest. CLINICAL INDICATION: Chest pain. TECHNIQUE: Single frontal view of the chest was obtained. COMPARISON: 07/27/2016. FINDINGS: The cardiac silhouette is enlarged. The aortic arch is calcified. There is mild pulmonary venous co ngestion. There is no focal consolidation or pleural effusion. There is no pneumothorax. IMPRESSION: Marked cardiomegaly and mild pulmonary venous congestion, increased compared with the prior study. Aortic atherosclerosis. .Umang Park MD, Date Time Electronically viewed and signed by .Umang Park MD, MD on 02/01/2017 01:48 .T/
[2017-02-01] MEDS ORDERED: SIMV40TA2 PO (03:12)
[2017-02-01] MEDS ORDERED: DARB10SY IJ (03:12)
[2017-02-01 03:13] LABS: ABNORMAL IP MESSAGE 1; HEMATOCRIT 26.7 % (37.0-47.0); HEMOGLOBIN 8.8 g/dl (12.0-16.0); MEAN CORPUSCULAR VOLUME 91.1 fl (82.0-101.0); MEAN PLATELET VOLUME 9.6 fl (7.4-10.4); PLATELET COUNT 214 10^3/UL (140-415); RED BLOOD COUNT 2.93 10^6/ul (4.20-5.40); RED CELL DISTRIBUTION WIDTH 15.3 % (11.5-14.5); WHITE BLOOD COUNT 10.8 10^3/ul (4.8-10.8)
[2017-02-01 03:15] LABS: POSITIVE DIFF @See below
[2017-02-01] MEDS ORDERED: METO-319 PO (03:27)
[2017-02-01] MEDS ORDERED: SEVE2.4P3 PO (03:27)
[2017-02-01] MEDS ORDERED: SEVE800T7 PO (03:27)
[2017-02-01] MEDS ORDERED: AMIN30LI PO (03:27)
[2017-02-01 03:38] LABS: ANION GAP 21 (8-16); BLOOD UREA NITROGEN 64 mg/dl (7-20); CALCIUM 9.1 mg/dl (8.4-10.2); CARBON DIOXIDE 26 mmol/L (21-31); CHLORIDE 99 mmol/L (97-110); CREATININE 8.56 mg/dl (0.44-1.00); GLUCOSE 102 mg/dl (70-220); POTASSIUM 5.8 mmol/L (3.5-5.1); SODIUM 140 mmol/L (135-144)
[2017-02-01 03:39] LABS: ANISOCYTOSIS 1+ (0-0); EOSINOPHILS % (M) 17 % (0-7); MICROCYTOSIS 1+ (0-0); MONOCYTES % (M) 2 % (0-11); PLATELET ESTIMATE NORMAL; POLYCHROMASIA 2+ (0-0)
[2017-02-01 03:50] LABS: TROPONIN-I < 0.012 ng/ml (0.00-0.12)
--- NOTE | 2017-02-01 04:44 | ERD ---
ER Documentation Chief Complaint Chief Complaint chest pain since 1 hour ago w/ sob HPI This is a 71-year-old female comes in with complaints of chest pain since 1 hour ago shortness of breath. Pain is mild to moderate intensity since resolved. Shortness of breath associated. Mild dyspnea on exertion. No fevers no chills. No other current complaints. Pain was mild to moderate when she had ROS All systems reviewed and are negative except as per history of present illness. Medications Home Meds Active Scripts Losartan Potassium* (Cozaar*) 50 Mg Tablet, 50 MG PO BID, #180 TAB Prov:NANCY COVARRUBIAS MD 06/18/16 Reported Medications Amino Acids/Protein Hydrolys (Liquacel 100 Liquid Packet) 30 Ml Liquid.pkt, 60 ML PO EVERY SCHEDUILED DIALYSIS TREATMENT 02/01/17 Sevelamer Carbonate* (Renvela*) 800 Mg Tablet, 0.8 GM PO WITH MEALS, TAB 02/01/17 Sevelamer Carbonate* (Renvela*) 2.4 Gm Powd.pack, 2.4 GM PO WITH MEALS, PACKET 02/01/17 Metoprolol Succinate* (Toprol XL*) 50 Mg Tab.er.24h, 50 MG PO DAILY, #30 TAB 02/01/17 Simvastatin* (Zocor*) 40 Mg Tablet, 40 MG PO QHS, #30 TAB 02/01/17 Darbepoetin Bernardo in Polysorbat (Aranesp) 10 Mcg/0.4 Ml Syringe, 10 MCG IJ WEEKLY , SYR WEEKLY ON 2ND SCHEDULE TREATMENT 02/01/17 Clonidine Hcl* (Clonidine Hcl*) 0.1 Mg Tab, 0.1 MG PO BID Y for ELEVATED BLOOD PRESSURE, TAB 07/27/16 Nifedipine* (Nifedipine ER*) 90 Mg Tablet.er, 90 MG PO DAILY, TAB 05/06/16 Nph, Human Insulin Isophane (Humulin N) 100 Units/Ml Vial, 19 UNIT SC QAM, VIAL 10/01/14 Multivit/Ca Carb/B Cmplx/Fa* (Lavern-Mike*) 1 Tab Tab, 1 TAB PO DAILY, TAB 10/01/14 Insulin Human Regular* (Insulin Human Regular (NICU Use Only)*) 1 Unit/Ml Soln, 5 UNIT IJ AC MEALS 04/19/13 Aspirin* (Aspirin* EC) 81 Mg Tablet.dr, 81 MG PO DAILY 04/19/13 Levothyroxine Sodium (Levothroid) 50 Mcg Tablet, 50 MCG PO DAILY 04/19/13 Docusate Sodium* (Colace*) 100 Mg Capsule, 100 MG PO BID 04/19/13 Discontinued Scripts Lactobacillus Rhamnosus* (Culturelle*) 1 Each Cap.sprink, 1 CAP PO BID for 14 Days, CAP Prov:EUGENE BURCIAGA 07/30/16 Amoxicillin/Potassium Clav (Amox-Clav 500-125 mg Tablet) 500-125 mg Tab, 500 MG PO DAILY for 7 Days, TAB Prov:EUGENE BURCIAGA 07/30/16 Carvedilol* (Carvedilol*) 6.25 Mg Tablet, 6.25 MG PO BID, #180 TAB Prov:NANCY COVARRUBIAS MD 06/18/16 Allergies Allergies: Coded Allergies: Heparin Analogues (Verified Allergy, Unknown, 05/06/16) PMhx/Soc History of Surgery: Yes (thyroidectomy partial and right breast lumpectomy, L arm dialysis access) Anesthesia Reaction: No Hx Neurological Disorder: No Hx Respiratory Disorders: No Hx Cardiac Disorders: Yes (htn) Hx Psychiatric Problems: No Hx Miscellaneous Medical Probl: Yes (ESRF, DM II ) Hx Alcohol Use: No Hx Substance Use: No Hx Tobacco Use: No Smoking Status: Never smoker Physical Exam Vitals Vital Signs Date Time Temp Pulse Resp B/P Pulse Ox O2 Delivery O2 Flow Rate FiO2 02/01/17 03:50 98.0 71 13 167/61 97 Nasal Cannula 2.0 02/01/17 03:00 98.0 70 22 180/90 99 Nasal Cannula 2.0 02/01/17 02:12 Nasal Cannula 2 02/01/17 01:55 98.2 73 22 155/87 97 Nasal Cannula 2.0 02/01/17 01:05 98.5 72 20 190/85 100 Physical Exam Const: [] Head: Atraumatic Eyes: Normal Conjunctiva ENT: Normal External Ears, Nose and Mouth. Neck: Full range of motion..~ No meningismus. Resp: Clear to auscultation bilaterally Cardio: Regular rate and rhythm, no murmurs Abd: Soft, non tender, non distended. Normal bowel sounds Skin: No petechiae or rashes Back: No midline or flank tenderness Ext: No cyanosis, or edema Neur: Awake and alert Psych: Normal Mood and Affect Result Diagram: 02/01/17 0150 02/01/17 0150 Results 24 hrs Laboratory Tests Test 02/01/17 01:50 White Blood Count 10.810^3/ul Red Blood Count 2.9310^6/ul Hemoglobin 8.8g/dl Hematocrit 26.7% Mean Corpuscular Volume 91.1fl Mean Corpuscular Hemoglobin 30.0pg Mean Corpuscular Hemoglobin Concent 33.0g/dl Red Cell Distribution Width 15.3% Platelet Count 59817^3/UL Mean Platelet Volume 9.6fl Neutrophils % % Segmented Neutrophils % (Manual) 65% Lymphocytes % % Lymphocytes % (Manual) 16% Monocytes % % Monocytes % (Manual) 2% Eosinophils % % Eosinophils % (Manual) 17% Basophils % % Nucleated Red Blood Cells % 0.0/100WBC Neutrophils # 10^3/ul Absolute Lymphocytes (Manual) 1.710^3/ul Lymphocytes # 10^3/ul Monocytes # 10^3/ul Absolute Monocytes (Manual) 0.210^3/ul Eosinophils # 10^3/ul Basophils # 10^3/ul Nucleated Red Blood Cells # 10^3/ul Platelet Estimate NORMAL Polychromasia 2+ Anisocytosis 1+ Microcytosis 1+ Sodium Level 140mmol/L Potassium Level 5.8mmol/L Chloride Level 99mmol/L Carbon Dioxide Level 26mmol/L Anion Gap 21 Blood Urea Nitrogen 64mg/dl Creatinine 8.56mg/dl Glucose Level 102mg/dl Calcium Level 9.1mg/dl Troponin I < 0.012ng/ml Current Medications Medications (Trade) Dose Ordered Sig/Leland Route PRN Reason Start Time Stop Time Status Last Admin Dose Admin Morphine Sulfate (morphine) 4 mg ONCE STAT IV 02/01/17 01:14 02/01/17 01:32 DC 02/01/17 02:05 Ondansetron HCl (Zofran Inj) 4 mg ONCE STAT IV 02/01/17 01:14 02/01/17 01:32 DC 02/01/17 02:05 Procedures/MDM EKG: Rate/Rhythm: [Normal Sinus Rhythm] QRS, ST, T-waves: [No changes consistent w/ acute ischemia] Impression: [No evidence of ischemia or arrhythmia] Chest X-ray 1V Interpreted by me: Soft Tissue: No acute abnormalities Bones: No acute abnormalities Mediastinum/Cardiac Silhouette/Lungs: [No acute abnormalities] Patient's symptoms are concerning for cardiac cause will require inpatient workup and continuous monitoring. Further w/u for ischemia, arrhythmia, PE or dissection will be deferred to the inpatient team. Accepting Care Team: Current data and ongoing care discussed. Time: 4:40 AM Primary Provider: Layla keeneist Consulting: [XOXOXO] Outstanding Data: none Departure Diagnosis: Primary Impression: Chest pain Chest pain type: unspecified Qualified Code: R07.9 - Chest pain, unspecified type Condition: Serious ZABRINA DUFFY Feb 01, 2017 04:44
--- NOTE | 2017-02-01 05:38 | HP ---
Date/Time of Note Date/Time of Note DATE: 02/01/17 TIME: 05:23 Assessment/Plan VTE Prophylaxis VTE Prophylaxis Intervention: ambulation, anti-embolic stocking VTE Contraindication Reason: bleeding Lines/Catheters IV Catheter Type (from Nrsg): Saline Lock Central line still needed: No Urinary Cath still in place: No Assessment/Plan Problems: (1) Acute on chronic diastolic congestive heart failure Status: Acute Comment: It was related to fluid overload The patient needs dialysis. Dr. Tay Price consultation. (2) ESRD (end stage renal disease) on dialysis Status: Chronic Comment: HD per Dr. Cross Fluid and electrolyte management per nursing service administrator (3) Chest pain Status: Acute Comment: Serial troponin level repeated Admitted to Telemetry Dr. Baez consultation aspirin,statin resumed. Oxygen per protocol Qualifiers: Chest pain type: chest pain on breathing Qualified Code: R07.1 - Chest pain on breathing (4) HTN (hypertension) Status: Chronic Comment: Nifedipine resumed Clonidine resumed for SBP>160 or DBP>110. Qualifiers: Hypertension type: essential hypertension Qualified Code: I10 - Essential hypertension (5) Acute hyperkalemia Status: Acute Comment: Glucose and regular insulin given Kayexalate given Duoneb given CMP repeated in 4 hrs (6) Anemia due to chronic kidney disease treated with erythropoietin Status: Chronic Comment: Aranesp given CBC repeated Iron study stool for occult blood (7) Morbid obesity Status: Chronic Comment: ambulate as much as possible when medically stable HPI/ROS Admit Date/Time Admit Date/Time 02/01/2017 Hx of Present Illness This is a 71-year-old female with significant medical illness of hypertensive nephropathy, ESRD on HD ,Tue,Thur and Sat type2 DM,chronic CHF hyperlipidemia, hypothyroidism,who was admitted here today due to increasing short of breath over a few hours. The patient reports that she was in her usual state of health until last night when she had episodes of short of breath while sleeping. She woke up due to shortness of breath.. She does coughs but there was no productive sputum. Apparently she had an episode of nausea, vomiting. She has been having ongoing chronic left lower quadrant abdominal pain so far. She was told that it was secondary to constipation and has been given morphine for pain control chronically. The patient therefore came to the ER and she was found to be hypoxic at room air. She has had PND and orthopnea. No fever nor chill. She denied any chest pain.ant pain. She did not make urine . She is currently hemodynamically stable. Lactic acid is within normal 1.4. White blood cell count is within normal currently. Her nursing service administrator consultation for dialysis . She is being admitted to telemetry bed as an inpatient. ROS Constitutional: fatigue, nausea, weight change, No chills, No diaphoresis, No disoriented, No febrile, No improved, No no complaints, No other, No poor po Eyes: No discharge, No no complaints, No other, No pain, No redness, No visual change ENT: No bleeding, No congestion, No discharge, No dysphagia, No no complaints, No other, No pain, No sore throat Respiratory: cough, shortness of breath, wheezing, No no complaints, No other, No pain, No pleuritic pain, No sputum Cardiovascular: orthopenea, paroxysmal nocturnal dyspnea, No chest pain, No edema, No lightheadedness, No no complaints, No other, No palpitations Gastrointestinal: constipation, nausea, other (left lower quadrant pain), No blood, No decreased appetite, No diarrhea, No flatus, No no complaints, No pain, No passing stool, No vomiting Musculoskeletal: No back pain, No bone/joint pain, No neck pain, No no complaints, No other, No restricted range of motion, No swelling Skin: No bruising, No erythema, No laceration, No no complaints, No other, No pruritis, No rash, No skin lesions Neurologic: No confusion, No dizziness, No focal-weakness, No headache, No no complaints, No other, No seizure, No syncope Endocrine: No dry skin, No no complaints, No other, No polydypsia, No polyuria , No temp intolerance, No weight change Lymphatic: No adenopathy, No lymphadema, No no complaints, No other, No tender nodes Psychological: No anxiety, No confusion, No depression, No nl mood/affect, No no complaints, No other, No suicidal Immunologic: No immunodeficiency, No no complaints, No other, No pruritis, No rhinitis, No urticaria PMH/Family/Social Past Medical History Medical History: hypertension, hypothyroid, renal disease (ESRD on HD ,Tue, Thur and Sat) Past Surgical History Past Surgical Hx: other (left partial thyroidectomy,Lumpectomy on right breast and left AV fistula) Family History Significant Family History: no pertinent family hx Social History Alcohol Use: none Smoking Status: Never smoker Drug Use: none Exam/Review of Systems Vital Signs Vitals Vital Signs Date Time Temp Pulse Resp B/P Pulse Ox O2 Delivery O2 Flow Rate FiO2 02/01/17 03:50 98.0 71 13 167/61 97 Nasal Cannula 2.0 Exam Constitutional: alert, distress, oriented Psych: No anxiety, No confusion, No depression, No nl mood/affect, No no complaints, No other, No suicidal Head: atraumatic, normocephalic Eyes: EOMI, PERRL, nl sclera, other (markedly pallor) ENMT: intubated, mucosa pink and moist, nl external ears & nose, nl lips & teeth, nl nasal mucosa & septum, other, tympanic membranes Neck: jvd (dilated JVD), non-tender, supple Respiratory: congested cough, crackles/rales (on bibasialr lung santana.) Cardiovascular: S4, jugular venous distention (JVD), nl pulses, regular rate and rhythm Gastrointestinal: nl liver, spleen, non-tender, soft, No ascites, No bowel sounds, No distended, No firm, No hepatomegaly, No mass , No other, No rebound or guarding, No splenomegaly, No surgical scars, No tender Genitourinary - Female: No CVA tenderness Musculoskeletal: nl extremities to inspection, nl gait and stance, No joint tenderness, No muscle tone, No muscle weakness, No other, No range of motion, No spine non-tender, No swelling Extremities: edema (1+), normal pulses, No calf tenderness, No clubbing, No cyanosis, No other, No palpable cord, No pitting pedal edema, No tenderness Neurological: EXTENDER II-XII intact, nl speech, nl strength, No DTR's symmetric, No confused, No focal weakness, No lethargic, No nl mental status, No numbness, No other, No reflexes, No unresponsive Skin: nl turgor, rash or lesions Labs Result Diagram: 02/01/17 01502/01/17 0150 Medications Medications Current Medications Aspirin (Halfprin) 81 mg DAILY PO Last administered on 02/01/17t 09:06; Admin Dose 81 MG; Start 02/01/17 at 09:00 Clonidine (Catapres) 0.1 mg BID PRN PO ELEVATED BLOOD PRESSURE Last administered on 02/01/17 17:11; Admin Dose 0.1 MG; Start 02/01/17 at 06:00 Metoprolol Succinate (Toprol Xl) 50 mg DAILY PO Last administered on 09:07; Admin Dose 50 MG; Start 02/01/17 at 09:00 Multivit/Ca Carb/ B Cmplx/FA/Prenat (Lavern-Mike) 1 tab DAILY PO Last administered on 02/01/17 09:06; Admin Dose 1 TAB; Start 02/01/17 at 09:00 Atorvastatin Calcium (Lipitor) 20 mg QHS PO ; Start 02/01/17 at 21:00 Docusate Sodium (Colace) 100 mg BID PRN PO CONSTIPATION; Start 02/01/17 at 09: 00 Morphine Sulfate (morphine) 1 mg Q2H PRN IV SEVERE PAIN LEVEL 7-10; Start at 06:30 Famotidine (Pepcid) 20 mg Q48H PO Last administered on 02/01/17 09:09; Admin Dose 20 MG; Start 02/01/17 at 09:00 Ondansetron HCl (Zofran Inj) 4 mg Q4H PRN IV NAUSEA AND/OR VOMITING; Start at 06:30 Miscellaneous Information 1 ea NOTE XX ; Start 02/01/17 at 07:00 Glucose (Glutose) 15 gm Q15M PRN PO DECREASED GLUCOSE; Start 02/01/17 at 07:00 Glucose (Glutose) 22.5 gm Q15M PRN PO DECREASED GLUCOSE; Start 02/01/17 at 07: 00 Dextrose (D50w Syringe) 25 ml Q15M PRN IV DECREASED GLUCOSE; Start 02/01/17 at 07:00 Dextrose (D50w Syringe) 50 ml Q15M PRN IV DECREASED GLUCOSE; Start 02/01/17 at 07:00 Glucagon (Glucagen) 1 mg Q15M PRN IM DECREASED GLUCOSE; Start 02/01/17 at 07: 00 Glucose (Glutose) 15 gm Q15M PRN BUCCAL DECREASED GLUCOSE; Start 02/01/17 at 07:00 Copies To: CC: PATRICA,CHRISTINA GRAY MD Feb 01, 2017 05:34
[2017-02-01] MEDS ORDERED: INSULIN REGULAR, HUMAN 100 UNIT/1 ML 3ML VIAL IV ONE (06:00)
[2017-02-01] MEDS ORDERED: BUMETANIDE 1 MG INJ IV ONE (06:00)
[2017-02-01] MEDS ORDERED: NA POLYST SULFON 15 GM/60 ML BTL PR ONE (06:00)
[2017-02-01] MEDS ORDERED: ALBUTEROL 0.083% (NEB) 2.5 MG/3 ML AMP NEB ONE (06:00)
[2017-02-01] MEDS ORDERED: NA BICARBONATE 8.4% 50 ML SYG IV ONE (06:00)
[2017-02-01] MEDS ORDERED: DEXTROSE 50% 50 ML SYRINGE IV ONE (06:00)
[2017-02-01] MEDS ORDERED: ONDANSETRON 4 MG INJ IV PRN (06:30)
[2017-02-01] MEDS ORDERED: GLUCAGON 1 MG INJ IM PRN (07:00)
[2017-02-01] MEDS ORDERED: GLUCOSE GEL 15 GRAM TUBE PO PRN ×2 (07:00)
[2017-02-01] MEDS ORDERED: DEXTROSE 50% 50 ML SYRINGE IV PRN ×2 (07:00)
[2017-02-01] MEDS ORDERED: GLUCOSE GEL 15 GRAM TUBE BUCCAL PRN (07:00)
[2017-02-01] MEDS: LEVOTHYROXINE 50 MCG TAB PO SCH (07:54)
[2017-02-01] MEDS: SEVELAMER CARBONATE 2.4 GM PKT PO SCH ×2 (07:55→19:35)
[2017-02-01] MEDS: CALCIUM ACETATE 667 MG CAP PO SCH ×2 (07:55→19:35)
[2017-02-01] MEDS: CALCIUM CARBONATE 500 MG CHEW TAB PO SCH ×2 (07:55→19:35)
[2017-02-01] MEDS ORDERED: SEVELAMER CARBONATE 0.8 GM PKT PO SCH (08:00)
[2017-02-01] MEDS ORDERED: NA POLYST SULFON 15 GM/60 ML BTL PO ONE (08:00)
[2017-02-01] MEDS: INSULIN ASPART [NOVOLOG] 3 ML PEN SC SCH ×2 (08:00→19:05)
[2017-02-01 08:52] LABS: ALBUMIN 3.7 g/dl (3.3-4.9); ALBUMIN/GLOBULIN RATIO 1.08; CALCIUM 9.3 mg/dl (8.4-10.2); CHOL/HDL RATIO 1.8 RATIO; CREATININE 9.32 mg/dl (0.44-1.00); MAGNESIUM 2.4 mg/dl (1.7-2.5); POTASSIUM 4.9 mmol/L (3.5-5.1); TOTAL PROTEIN 7.1 g/dl (6.1-8.1); URIC ACID 6.1 mg/dl (3.1-7.9)
[2017-02-01 08:56] LABS: CREATINE KINASE 59 IU/L (23-200)
[2017-02-01] MEDS ORDERED: DOCUSATE SODIUM 100 MG CAP PO SCH (09:00)
[2017-02-01] MEDS: ALBUTEROL/IPRATROPIUM (NEB) 3 ML AMP NEB SCH ×4 (09:00→20:00)
[2017-02-01] MEDS ORDERED: DOCUSATE SODIUM 100 MG CAP PO PRN (09:00)
[2017-02-01] MEDS ORDERED: METOPROLOL (XL) 50 MG TAB PO SCH (09:00)
[2017-02-01 09:02] LABS: CK-MB 1.27 ng/ml (0.0-2.4)
[2017-02-01 09:03] LABS: TROPONIN-I < 0.012 ng/ml (0.00-0.12)
[2017-02-01 09:04] LABS: ABNORMAL IP MESSAGE 1; HEMATOCRIT 26.4 % (37.0-47.0); HEMOGLOBIN 8.5 g/dl (12.0-16.0); MEAN CORPUSCULAR HEMOGLOBIN 29.7 pg (29.0-33.0); MEAN CORPUSCULAR HGB CONC 32.2 g/dl (32.0-37.0); MEAN CORPUSCULAR VOLUME 92.3 fl (82.0-101.0); PLATELET COUNT 190 10^3/UL (140-415); RED BLOOD COUNT 2.86 10^6/ul (4.20-5.40); RED CELL DISTRIBUTION WIDTH 14.9 % (11.5-14.5); WHITE BLOOD COUNT 10.5 10^3/ul (4.8-10.8)
[2017-02-01] MEDS: MULTIVIT/CA CARB/B CMPLX/FA TAB PO SCH (09:06)
[2017-02-01] MEDS: ASPIRIN (EC) 81 MG TAB PO SCH (09:06)
[2017-02-01 09:08] LABS: POSITIVE DIFF @See below
[2017-02-01] MEDS: FAMOTIDINE 20 MG TAB PO SCH (09:09)
[2017-02-01 09:20] LABS: THYROID STIMULATING HORMONE 2.03 MIU/L (0.465-4.680)
[2017-02-01 09:26] LABS: IRON 24 ug/dl (35-150)
[2017-02-01 09:35] LABS: TOTAL IRON BINDING CAPACITY 190 ug/dl (241-421)
[2017-02-01 09:45] LABS: EOSINOPHILS % (M) 24 % (0-7); MONOCYTES % (M) 3 % (0-11); REACTIVE LYMPHOCYTES% (M) 2 % (0-0)
[2017-02-01 09:46] LABS: ANISOCYTOSIS 1+ (0-0); MICROCYTOSIS 1+ (0-0); PLATELET ESTIMATE NORMAL
[2017-02-01 15:48] LABS: CREATINE KINASE 54 IU/L (23-200)
[2017-02-01 15:54] LABS: CK-MB 1.13 ng/ml (0.0-2.4)
[2017-02-01 16:23] LABS: TROPONIN-I < 0.012 ng/ml (0.00-0.12)
[2017-02-01] MEDS ORDERED: hydrALAzine 20 MG INJ IV PRN (18:00)
--- NOTE | 2017-02-01 18:56 | CONS ---
Date/Time of Note Date/Time of Note DATE: 02/01/17 TIME: 18:53 Assessment/Plan Assessment/Plan Chief Complaint/Hosp Course 1) atypical chest pain 2) no significant ekg changes 3) Marked anemia 4) ESRD 5) Hypertensive urgency 6) negative biomarker Problems: Additional Assessment/Plan 1) chest pain likely due to htn out of control 2) will dc metoprolol and start carvedilol 3) echo 4) troponin 5) EKG Consultation Date/Type/Reason Admit Date/Time 02/01/2017 Date of Consultation: Feb 01, 2017 Type of Consultation: cv Hx of Present Illness patient admitted with SOB and chest pain, now resolved, found to have marked elevation of BP, no syncope or near syncope Respiratory: no complaints Cardiovascular: no complaints Gastrointestinal: no complaints Musculoskeletal: no complaints Skin: no complaints Neurologic: no complaints Past Medical History Medical History: hypertension, hypothyroid, renal disease (ESRD on HD ,Tue, Thur and Sat) Past Surgical History Past Surgical Hx: other (left partial thyroidectomy,Lumpectomy on right breast and left AV fistula) Family History Significant Family History: hypertension Social History Alcohol Use: none Smoking Status: Never smoker Drug Use: none Exam/Review of Systems Vital Signs Vitals Vital Signs Date Time Temp Pulse Resp B/P Pulse Ox O2 Delivery O2 Flow Rate FiO2 02/01/17 17:45 74 17 96 Nasal Cannula 2.0 02/01/17 17:15 97.7 185/86 Exam Constitutional: alert, oriented Head: atraumatic, normocephalic Neck: supple Respiratory: clear to auscultation Cardiovascular: regular rate and rhythm Gastrointestinal: soft Musculoskeletal: nl extremities to inspection Extremities: normal pulses Results Result Diagram: 02/01/17 0815 02/01/17 0805 Results 24 hrs Laboratory Tests Test 02/01/17 01:50 02/01/17 07:22 02/01/17 07:26 02/01/17 08:05 White Blood Count 10.8 # Red Blood Count 2.93 L Hemoglobin 8.8 L Hematocrit 26.7 L Mean Corpuscular Volume 91.1 Mean Corpuscular Hemoglobin 30.0 Mean Corpuscular Hemoglobin Concent 33.0 Red Cell Distribution Width 15.3 H Platelet Count 214 # Mean Platelet Volume 9.6 Neutrophils % Segmented Neutrophils % (Manual) 65 Lymphocytes % Lymphocytes % (Manual) 16 Monocytes % Monocytes % (Manual) 2 Eosinophils % Eosinophils % (Manual) 17 H Basophils % Nucleated Red Blood Cells % 0.0 Neutrophils # Absolute Lymphocytes (Manual) 1.7 Lymphocytes # Monocytes # Absolute Monocytes (Manual) 0.2 L Eosinophils # Basophils # Nucleated Red Blood Cells # Platelet Estimate NORMAL Polychromasia 2+ Anisocytosis 1+ Microcytosis 1+ Sodium Level 140 142 Potassium Level 5.8 H 4.9 Chloride Level 99 99 Carbon Dioxide Level 26 29 Anion Gap 21 H 19 H Blood Urea Nitrogen 64 H 63 H Creatinine 8.56 H 9.32 H Glucose Level 102 93 Calcium Level 9.1 9.3 Troponin I < 0.012 < 0.012 Bedside Glucose 109 Ionized Calcium (Measured) 1.3 Uric Acid 6.1 Phosphorus Level 4.0 Magnesium Level 2.4 Ferritin 696.0 H Total Bilirubin 0.0 L Direct Bilirubin 0.00 Indirect Bilirubin 0.0 Aspartate Amino Transf (AST/SGOT) 28 Alanine Aminotransferase (ALT/SGPT) 40 Alkaline Phosphatase 99 Creatine Kinase 59 Creatine Kinase Index 2.2 Creatinine Kinase MB (Mass) 1.27 B-Type Natriuretic Peptide 8960 H Total Protein 7.1 Albumin 3.7 Globulin 3.40 H Albumin/Globulin Ratio 1.08 Triglycerides Level 61 Cholesterol Level 71 L LDL Cholesterol, Calculated 20 HDL Cholesterol 39 Cholesterol/HDL Ratio 1.8 Thyroid Stimulating Hormone (TSH) 2.030 Parathyroid Hormone (Intact) Test 02/01/17 08:15 02/01/17 09:02 02/01/17 10:18 02/01/17 15:09 White Blood Count 10.5 Red Blood Count 2.86 L Hemoglobin 8.5 L Hematocrit 26.4 L Mean Corpuscular Volume 92.3 Mean Corpuscular Hemoglobin 29.7 Mean Corpuscular Hemoglobin Concent 32.2 Red Cell Distribution Width 14.9 H Platelet Count 190 Mean Platelet Volume 9.0 Neutrophils % Segmented Neutrophils % (Manual) 48 Band Neutrophils % (Manual) 1 Lymphocytes % Lymphocytes % (Manual) 22 Reactive Lymphocytes % (Manual) 2 H Monocytes % Monocytes % (Manual) 3 Eosinophils % Eosinophils % (Manual) 24 H Basophils % Nucleated Red Blood Cells % 0.0 Neutrophils # Neutrophils # (Manual) 5.1 Band Neutrophils # 0.1 Absolute Lymphocytes (Manual) 2.3 Lymphocytes # Reactive Lymphocytes # 0.2 H Monocytes # Absolute Monocytes (Manual) 0.3 Eosinophils # Basophils # Nucleated Red Blood Cells # Platelet Estimate NORMAL Anisocytosis 1+ Microcytosis 1+ Iron Level 24 L Total Iron Binding Capacity 190 L Percent Iron Saturation 13 L Bedside Glucose 48 *L 112 Creatine Kinase 54 Creatine Kinase Index 2.1 Creatinine Kinase MB (Mass) 1.13 Troponin I < 0.012 Test 02/01/17 17:33 Bedside Glucose 173 Medications Medications Current Medications Aspirin (Halfprin) 81 mg DAILY PO Last administered on 02/01/17 09:06; Admin Dose 81 MG; Start 02/01/17 at 09:00 Clonidine (Catapres) 0.1 mg BID PRN PO ELEVATED BLOOD PRESSURE Last administered on 02/01/17 17:11; Admin Dose 0.1 MG; Start 02/01/17 at 06:00 Multivit/Ca Carb/ B Cmplx/FA/Prenat (Lavern-Mike) 1 tab DAILY PO Last administered on 02/01/17 09:06; Admin Dose 1 TAB; Start 02/01/17 at 09:00 Atorvastatin Calcium (Lipitor) 20 mg QHS PO ; Start 02/01/17 at 21:00 Docusate Sodium (Colace) 100 mg BID PRN PO CONSTIPATION; Start 02/01/17 at 09: 00 Morphine Sulfate (morphine) 1 mg Q2H PRN IV SEVERE PAIN LEVEL 7-10; Start at 06:30 Famotidine (Pepcid) 20 mg Q48H PO Last administered on 02/01/17 09:09; Admin Dose 20 MG; Start 02/01/17 at 09:00 Ondansetron HCl (Zofran Inj) 4 mg Q4H PRN IV NAUSEA AND/OR VOMITING; Start at 06:30 Miscellaneous Information 1 ea NOTE XX ; Start 02/01/17 at 07:00 Glucose (Glutose) 15 gm Q15M PRN PO DECREASED GLUCOSE; Start 02/01/17 at 07:00 Glucose (Glutose) 22.5 gm Q15M PRN PO DECREASED GLUCOSE; Start 02/01/17 at 07: 00 Dextrose (D50w Syringe) 25 ml Q15M PRN IV DECREASED GLUCOSE; Start 02/01/17 at 07:00 Dextrose (D50w Syringe) 50 ml Q15M PRN IV DECREASED GLUCOSE; Start 02/01/17 at 07:00 Glucagon (Glucagen) 1 mg Q15M PRN IM DECREASED GLUCOSE; Start 02/01/17 at 07: 00 Glucose (Glutose) 15 gm Q15M PRN BUCCAL DECREASED GLUCOSE; Start 02/01/17 at 07:00 Losartan Potassium (Cozaar) 50 mg BID PO ; Start 02/01/17 at 21:00 Nifedipine (Procardia Xl) 90 mg DAILY PO ; Start 02/01/17 at 18:00 Insulin Human NPH (Humulin N) 19 unit QAM SC ; Start 02/02/17 at 09:00 Miscellaneous Information 10 mcg WEEKLY IJ ; Start 02/01/17 at 18:00; Status UNV Hydralazine HCl (Apresoline) 10 mg Q6H PRN IV ELEVATED BLOOD PRESSURE; Start 02/01/17 at 18:00 Carvedilol (Coreg) 6.25 mg BID PO ; Start 02/01/17 at 21:00; Status UNV LELA SINCLAIR MD Feb 01, 2017 18:56
--- NOTE | 2017-02-01 19:32 | CONS ---
Date/Time of Note Date/Time of Note DATE: 02/01/17 TIME: 19:26 Assessment/Plan Assessment/Plan Additional Assessment/Plan (1) Acute on chronic diastolic congestive heart failure Status: Acute Comment: S/p HD improved, Will order Dry UF tomorrow (2) ESRD (end stage renal disease) on dialysis Status: Chronic Comment: HD TTS schedule (3) Chest pain Status: Acute Comment: Resolved (4) HTN (hypertension) Status: Chronic Comment: Cont current Rx and plan, Dry UF tomorrow. (5) Acute hyperkalemia Status: Acute Comment: Resolved (6) Anemia due to chronic kidney disease treated with erythropoietin Status: Chronic Comment: S/p KENNEDY, Cont KENNEDY with HD (7) Morbid obesity Status: Chronic Consultation Date/Type/Reason Admit Date/Time 02/01/2017 Date of Consultation: Feb 01, 2017 Type of Consultation: Renal Reason for Consultation ESRD, HD Referring Provider: CHRISTINA VILLAR MD Hx of Present Illness 71 yo Female with history of ESRD on HD every tuesday and tuesday who missed HD today and presented to ED at [facility] with Shortness of breath which had worsened last night and this am. Pt was found to have evidence of volume overload, uncontrolled HTN and hyperkalemia. Nephrology was consulted for management of ESRD, HD. Pt is s/p HD this afternoon and had approx 3.5 L removed. She has tolerated procedure and SOB has improved. Constitutional: No requiring O2 Past Medical History Medical History: diabetes, hypertension, hypothyroid, renal disease (ESRD on HD ,Tue, and Tue) Past Surgical History Past Surgical Hx: other (left partial thyroidectomy,Lumpectomy on right breast and left AV fistula) Family History Significant Family History: no pertinent family hx Social History Alcohol Use: none Smoking Status: Never smoker Drug Use: none Exam/Review of Systems Vital Signs Vitals Vital Signs Date Time Temp Pulse Resp B/P Pulse Ox O2 Delivery O2 Flow Rate FiO2 02/01/17 17:45 74 17 96 Nasal Cannula 2.0 02/01/17 17:15 97.7 185/86 Exam Constitutional: alert, oriented, No distress ENMT: mucosa pink and moist Neck: No jvd Respiratory: crackles/rales, No diminished breath sounds, No labored breathing Cardiovascular: edema (trace), regular rate and rhythm Gastrointestinal: non-tender, soft, No rebound or guarding Extremities: edema Neurological: DIVISION LEADER II-XII intact, nl mental status, No confused, No lethargic Skin: No diaphoresis, No rash or lesions Results Result Diagram: 02/01/17 0815 02/01/17 0805 Results 24 hrs Laboratory Tests Test 02/01/17 01:50 02/01/17 07:22 02/01/17 07:26 02/01/17 08:05 White Blood Count 10.8 # Red Blood Count 2.93 L Hemoglobin 8.8 L Hematocrit 26.7 L Mean Corpuscular Volume 91.1 Mean Corpuscular Hemoglobin 30.0 Mean Corpuscular Hemoglobin Concent 33.0 Red Cell Distribution Width 15.3 H Platelet Count 214 # Mean Platelet Volume 9.6 Neutrophils % Segmented Neutrophils % (Manual) 65 Lymphocytes % Lymphocytes % (Manual) 16 Monocytes % Monocytes % (Manual) 2 Eosinophils % Eosinophils % (Manual) 17 H Basophils % Nucleated Red Blood Cells % 0.0 Neutrophils # Absolute Lymphocytes (Manual) 1.7 Lymphocytes # Monocytes # Absolute Monocytes (Manual) 0.2 L Eosinophils # Basophils # Nucleated Red Blood Cells # Platelet Estimate NORMAL Polychromasia 2+ Anisocytosis 1+ Microcytosis 1+ Sodium Level 140 142 Potassium Level 5.8 H 4.9 Chloride Level 99 99 Carbon Dioxide Level 26 29 Anion Gap 21 H 19 H Blood Urea Nitrogen 64 H 63 H Creatinine 8.56 H 9.32 H Glucose Level 102 93 Calcium Level 9.1 9.3 Troponin I < 0.012 < 0.012 Bedside Glucose 109 Ionized Calcium (Measured) 1.3 Uric Acid 6.1 Phosphorus Level 4.0 Magnesium Level 2.4 Ferritin 696.0 H Total Bilirubin 0.0 L Direct Bilirubin 0.00 Indirect Bilirubin 0.0 Aspartate Amino Transf (AST/SGOT) 28 Alanine Aminotransferase (ALT/SGPT) 40 Alkaline Phosphatase 99 Creatine Kinase 59 Creatine Kinase Index 2.2 Creatinine Kinase MB (Mass) 1.27 B-Type Natriuretic Peptide 8960 H Total Protein 7.1 Albumin 3.7 Globulin 3.40 H Albumin/Globulin Ratio 1.08 Triglycerides Level 61 Cholesterol Level 71 L LDL Cholesterol, Calculated 20 HDL Cholesterol 39 Cholesterol/HDL Ratio 1.8 Thyroid Stimulating Hormone (TSH) 2.030 Parathyroid Hormone (Intact) Test 02/01/17 08:15 02/01/17 09:02 12/19/17 10:18 02/01/17 15:09 White Blood Count 10.5 Red Blood Count 2.86 L Hemoglobin 8.5 L Hematocrit 26.4 L Mean Corpuscular Volume 92.3 Mean Corpuscular Hemoglobin 29.7 Mean Corpuscular Hemoglobin Concent 32.2 Red Cell Distribution Width 14.9 H Platelet Count 190 Mean Platelet Volume 9.0 Neutrophils % Segmented Neutrophils % (Manual) 48 Band Neutrophils % (Manual) 1 Lymphocytes % Lymphocytes % (Manual) 22 Reactive Lymphocytes % (Manual) 2 H Monocytes % Monocytes % (Manual) 3 Eosinophils % Eosinophils % (Manual) 24 H Basophils % Nucleated Red Blood Cells % 0.0 Neutrophils # Neutrophils # (Manual) 5.1 Band Neutrophils # 0.1 Absolute Lymphocytes (Manual) 2.3 Lymphocytes # Reactive Lymphocytes # 0.2 H Monocytes # Absolute Monocytes (Manual) 0.3 Eosinophils # Basophils # Nucleated Red Blood Cells # Platelet Estimate NORMAL Anisocytosis 1+ Microcytosis 1+ Iron Level 24 L Total Iron Binding Capacity 190 L Percent Iron Saturation 13 L Bedside Glucose 48 *L 112 Creatine Kinase 54 Creatine Kinase Index 2.1 Creatinine Kinase MB (Mass) 1.13 Troponin I < 0.012 Test 02/01/17 17:33 02/01/17 19:03 Bedside Glucose 173 152 Imaging Free Text/Dictation PROCEDURE: Chest. CLINICAL INDICATION: Chest pain. TECHNIQUE: Single frontal view of the chest was obtained. COMPARISON: 07/27/2016. FINDINGS: The cardiac silhouette is enlarged. The aortic arch is calcified. There is mild pulmonary venous congestion. There is no focal consolidation or pleural effusion. There is no pneumothorax. IMPRESSION: Marked cardiomegaly and mild pulmonary venous congestion, increased compared with the prior study. Aortic atherosclerosis. .Umang Park MD, Date Time Electronically viewed and signed by .Umang Park MD, MD on 02/01/2017 01:48 Medications Medications Current Medications Aspirin (Halfprin) 81 mg DAILY PO Last administered on 02/01/17t 09:06; Admin Dose 81 MG; Start 02/01/17 at 09:00 Clonidine (Catapres) 0.1 mg BID PRN PO ELEVATED BLOOD PRESSURE Last administered on 02/01/17 17:11; Admin Dose 0.1 MG; Start 02/01/17 at 06:00 Multivit/Ca Carb/ B Cmplx/FA/Prenat (Lavern-Mike) 1 tab DAILY PO Last administered on 02/01/17 09:06; Admin Dose 1 TAB; Start 02/01/17 at 09:00 Atorvastatin Calcium (Lipitor) 20 mg QHS PO ; Start 02/01/17 at 21:00 Docusate Sodium (Colace) 100 mg BID PRN PO CONSTIPATION; Start 02/01/17 at 09: 00 Morphine Sulfate (morphine) 1 mg Q2H PRN IV SEVERE PAIN LEVEL 7-10; Start at 06:30 Famotidine (Pepcid) 20 mg Q48H PO Last administered on 02/01/17 09:09; Admin Dose 20 MG; Start 02/01/17 at 09:00 Ondansetron HCl (Zofran Inj) 4 mg Q4H PRN IV NAUSEA AND/OR VOMITING; Start at 06:30 Miscellaneous Information 1 ea NOTE XX ; Start 02/01/17 at 07:00 Glucose (Glutose) 15 gm Q15M PRN PO DECREASED GLUCOSE; Start 02/01/17 at 07:00 Glucose (Glutose) 22.5 gm Q15M PRN PO DECREASED GLUCOSE; Start 02/01/17 at 07: 00 Dextrose (D50w Syringe) 25 ml Q15M PRN IV DECREASED GLUCOSE; Start 02/01/17 at 07:00 Dextrose (D50w Syringe) 50 ml Q15M PRN IV DECREASED GLUCOSE; Start 02/01/17 at 07:00 Glucagon (Glucagen) 1 mg Q15M PRN IM DECREASED GLUCOSE; Start 02/01/17 at 07: 00 Glucose (Glutose) 15 gm Q15M PRN BUCCAL DECREASED GLUCOSE; Start 02/01/17 at 07:00 Losartan Potassium (Cozaar) 50 mg BID PO ; Start 02/01/17 at 21:00 Nifedipine (Procardia Xl) 90 mg DAILY PO ; Start 02/01/17 at 18:00 Insulin Human NPH (Humulin N) 19 unit QAM SC ; Start 02/02/17 at 09:00 Miscellaneous Information 10 mcg WEEKLY IJ ; Start 02/01/17 at 18:00; Status UNV Hydralazine HCl (Apresoline) 10 mg Q6H PRN IV ELEVATED BLOOD PRESSURE; Start 02/01/17 at 18:00 Carvedilol (Coreg) 6.25 mg BID PO ; Start 02/01/17 at 21:00; Status UNV COLLEEN PERAZA MD Feb 01, 2017 19:32
[2017-02-01] MEDS: NIFEdipine (XL) 90 MG TAB PO SCH (19:45)
[2017-02-01] MEDS: LOSARTAN 50 MG TAB PO SCH (22:09)
[2017-02-01] MEDS: ATORVASTATIN 20 MG TAB PO SCH (22:10)
[2017-02-02] VITALS (17 sets, daily range): BP systolic 104–151; BP diastolic 51–68; PULSE 61–77; RESP 16–20
[2017-02-02] MEDS: ALBUTEROL/IPRATROPIUM (NEB) 3 ML AMP NEB SCH ×6 (01:32→20:15)
[2017-02-02] MEDS: LEVOTHYROXINE 50 MCG TAB PO SCH (06:35)
--- NOTE | 2017-02-02 07:19 | RADRPT ---
Vent Rate: 72 bpm RR Interval: 0 msec [place] Interval: 164 msec QRS Duration: 92 msec QT Interval: 410 msec QTC Interval: 448 msec P-R-T [place]: 37 - 31 - 90 degrees Normal sinus rhythm Normal ECG Electronically Signed By: Chapin Lynn [id number]
--- NOTE | 2017-02-02 07:21 | RADRPT ---
Vent Rate: 65 bpm RR Interval: 0 msec MA Interval: 182 msec QRS Duration: 90 msec QT Interval: 416 msec QTC Interval: 432 msec P-R-T [place]: 66 - 62 - 78 degrees Normal sinus rhythm Cannot rule out Anterior infarct , age undetermined Abnormal ECG Electronically Signed By: Chapin Lynn [id number]
[2017-02-02] MEDS: MULTIVIT/CA CARB/B CMPLX/FA TAB PO SCH (09:57)
[2017-02-02] MEDS: ASPIRIN (EC) 81 MG TAB PO SCH (09:58)
[2017-02-02] MEDS: NIFEdipine (XL) 90 MG TAB PO SCH (09:58)
[2017-02-02] MEDS: LOSARTAN 50 MG TAB PO SCH ×2 (09:58→21:29)
[2017-02-02] MEDS: CALCIUM ACETATE 667 MG CAP PO SCH ×3 (09:59→17:26)
[2017-02-02] MEDS: SEVELAMER CARBONATE 0.8 GM PKT PO SCH ×3 (09:59→17:27)
[2017-02-02] MEDS: SEVELAMER CARBONATE 2.4 GM PKT PO SCH ×3 (09:59→17:27)
[2017-02-02] MEDS: CALCIUM CARBONATE 500 MG CHEW TAB PO SCH ×3 (10:00→17:27)
[2017-02-02] MEDS: INSULIN ASPART [NOVOLOG] 3 ML PEN SC SCH ×3 (10:02→17:37)
[2017-02-02] MEDS: NPH, HUMAN INSULIN ISOPHANE 3ML VIAL SC SCH (10:03)
--- NOTE | 2017-02-02 11:27 | RADRPT ---
Echocardiogram Report Patient Name: VALERIA MOTLEY Gender: Female Date: 1945 Study Date: 02-Feb-2017 [employer]: [facility] Location: 5560 Ref. Physician: LELA SINCLAIR Quality: Good Procedures: Transthoracic echocardiogram with complete 2D, M-Mode, and doppler examination. Indications: Shortness of breath. 2D/M Mode Doppler Measurement Value Normal Ranges Measurement Value Normal Ranges LVIDd 2D 4.7 3.5 - 5.6 cm AV Mean Joni 1.5 m/sec LVIDs 2D 2.9 2.1 - 4.1 cm AV Mean PG 10.1 mmHg LVPWd 2D 1.4 0.6 - 1.1 cm AV Peak Joni 2.2 m/sec IVSd 2D 1.4 0.6 - 1.1 cm AV Peak PG 19.2 mmHg AoR Diam 2D 3.0 2.0 - 3.7 cm AV VTI 48.3 cm EDV 2D 102.9 cm3 LVOT Peak Joni 1.5 m/sec ESV 2D 23.4 cm3 LVOT Peak PG 8.7 mmHg LA Dimen 2D 4.0 2.3 - 4.0 cm MV E Peak Join 0.9 m/sec MV A Peak Joni 1.3 m/sec MV E/A 0.7 MV Decel Time 309 msec MV Decel [place] 3 MV E/A 0.7 TR Peak Joni 2.9 m/sec TR Peak PG 33.9 mmHg RVSP 37.0 mmHg Findings Left Ventricle: Normal left ventricular systolic function. Normal left ventricular cavity size. Moderate concentric left ventricular hypertrophy. Ejection fraction is visually estimated at 65 %. Tissue Doppler/Mitral Doppler indices are consistent with impaired relaxation (Stage I diastolic dysfunction). Right Ventricle: Normal right ventricular size. Normal right ventricular systolic function. Left Atrium: There is mild enlargement of left atrium. Right Atrium: The right atrium is normal in size. Mitral Valve: Normal appearance of the mitral valve. Mild mitral annular calcification. Trace mitral regurgitation. Aortic Valve: Aortic valve Max velocity 2.19 m/sec. Max PG 19.20 mmHg. Mean PG 10.10 mmHg. Aortic sclerosis without significant stenosis. Trace aortic valve regurgitation. Tricuspid Valve: Normal appearance of the tricuspid valve. Estimated peak PA systolic pressure 37 mmHg. There is mild tricuspid regurgitation. Pulmonic Valve: Normal pulmonic valve appearance. Pericardium: Medium to large pericardial effusion. Aorta: Normal aortic root. IVC: Normal size and normal respiratory collapse consistent with normal right atrial pressure. Conclusions Normal left ventricular systolic function. Normal left ventricular cavity size. Moderate concentric left ventricular hypertrophy. Ejection fraction is visually estimated at 65 %. Tissue Doppler/Mitral Doppler indices are consistent with impaired relaxation (Stage I diastolic dysfunction). Normal right ventricular size. Normal right ventricular systolic function. There is mild enlargement of left atrium. The right atrium is normal in size. Estimated peak PA systolic pressure 37 mmHg. There is mild tricuspid regurgitation. No significant valvular stenosis or regurgitation seen of remaining visualized valves. Medium to large pericardial effusion. Electronically Signed By: Amari Baez 02-Feb-2017 11:26:34 -0800 Patient Name: VALERIA MOTLEY Study Date: 02-Feb-[id number]
--- NOTE | 2017-02-02 12:55 | PN ---
Date/Time of Note Date/Time of Note DATE: 02/02/17 TIME: 12:52 Assessment/Plan VTE Prophylaxis VTE Prophylaxis Intervention: SCD's Lines/Catheters IV [facility] Saline Lock Urinary Cath still in place: No Assessment/Plan Assessment/Plan 71-year-old female with: 1. Moderate to large pericardial effusion, seen on 2D echocardiogram, atypical chest pain. Appreciate recommendations from cardiology, Dr. Baez. Patient does not have tamponade, her shortness of breath is better after dialysis yesterday, cardiology will discuss with nephrology as patient will need a high frequency of her dialysis and unlikely to be dialyzed today. Cardiac enzymes did remain negative. Blood pressure control. Continue other medications. 2. End-stage renal disease, on hemodialysis, 3 times per week. Hyperkalemia resolved Will need increased frequency of dialysis with fluid removal given the findings of pericardial effusion. Otherwise patient remained stable with electrolytes now within normal. 3. Acute on chronic diastolic heart failure, status post dialysis yesterday with removal of 3.5 L. Patient volume status is much improved today. 4. Hypertension: Better controlled today with dialysis yesterday, also medication adjusted per cardiology, beta-blockers changed to carvedilol 5. Chronic anemia secondary to chronic kidney disease, hemoglobin stable, continue to monitor. 6. Diabetes mellitus: Continue current insulin regimen, diabetic/renal diet. 7. Hypothyroidism: Continue Synthroid 8. Hyperlipidemia: Continue statin therapy 9. Morbid obesity, lifestyle modification, increase ambulation. Prophylaxis: Pepcid for GI prophylaxis, SCDs for DVT prophylaxis Disposition: Appreciate recommendations from cardiology, patient hopefully can be dialyzed today. Subjective 24 Hr Interval Summary Free Text/Dictation Patient denies any ongoing chest pain, her echocardiogram this morning did show moderate to large pericardial effusion. Therefore stress test has been canceled. Patient will need additional dialysis with fluid removal. Exam/Review of Systems Vital Signs Vitals Vital Signs Date Time Temp Pulse Resp B/P Pulse Ox O2 Delivery O2 Flow Rate FiO2 02/02/17 12:49 75 18 95 Nasal Cannula 2.0 02/02/17 11:59 97.4 139/65 Intake and Output 02/01/17 02/01/17 02/02/17 15:00 23:00 07:00 Intake Total 500 ml 200 ml Output Total 4000 ml Balance -3500 ml 200 ml Exam Constitutional: alert, obese, oriented, well developed Respiratory: diminished breath sounds (At bases bilaterally), normal air movement Cardiovascular: nl pulses, other (2D echocardiogram with moderate to large pericardial effusion), regular rate and rhythm Gastrointestinal: non-tender, soft Musculoskeletal: nl extremities to inspection, nl gait and stance, other (No edema, clubbing or cyanosis) Extremities: normal pulses Neurological: TELECASTING TECHNICIAN II-XII intact, nl mental status, nl speech, nl strength (At baseline) Results Result Diagram: 02/01/17 0815 02/01/17 0805 Results 24 hrs Laboratory Tests Test 02/01/17 15:09 02/01/17 17:33 02/01/17 19:03 02/02/17 10:01 Creatine Kinase 54 Creatine Kinase Index 2.1 Creatinine Kinase MB (Mass) 1.13 Troponin I < 0.012 Bedside Glucose 173 152 119 Test 02/02/17 12:05 Bedside Glucose 106 Imaging Free Text/Dictation Echocardiogram Report Patient Name: VALERIA MOTLEY Gender: Female Date: 1945 Study Date: 02-Feb-2017 Crystalizer Operator: [facility] Location: 55 Ref. Physician: LELA SINCLAIR Quality: Good Procedures: Transthoracic echocardiogram with complete 2D, M-Mode, and doppler examination. Indications: Shortness of breath. 2D/M Mode Doppler Measurement Value Normal Ranges Measurement Value Normal Ranges LVIDd 2D 4.7 3.5 - 5.6 cm AV Mean Joni 1.5 m/sec LVIDs 2D 2.9 2.1 - 4.1 cm AV Mean PG 10.1 mmHg LVPWd 2D 1.4 0.6 - 1.1 cm AV Peak Joni 2.2 m/sec IVSd 2D 1.4 0.6 - 1.1 cm AV Peak PG 19.2 mmHg AoR Diam 2D 3.0 2.0 - 3.7 cm AV VTI 48.3 cm EDV 2D 102.9 cm3 LVOT Peak Joni 1.5 m/sec ESV 2D 23.4 cm3 LVOT Peak PG 8.7 mmHg LA Dimen 2D 4.0 2.3 - 4.0 cm MV E Peak Joni 0.9 m/sec MV A Peak Joni 1.3 m/sec MV E/A 0.7 MV Decel Time 309 msec MV Decel [place] 3 MV E/A 0.7 TR Peak Joni 2.9 m/sec TR Peak PG 33.9 mmHg RVSP 37.0 mmHg Findings Left Ventricle: Normal left ventricular systolic function. Normal left ventricular cavity size. Moderate concentric left ventricular hypertrophy. Ejection fraction is visually estimated at 65 %. Tissue Doppler/Mitral Doppler indices are consistent with impaired relaxation (Stage I diastolic dysfunction). Right Ventricle: Normal right ventricular size. Normal right ventricular systolic function. Left Atrium: There is mild enlargement of left atrium. Right Atrium: The right atrium is normal in size. Mitral Valve: Normal appearance of the mitral valve. Mild mitral annular calcification. Trace mitral regurgitation. Aortic Valve: Aortic valve Max velocity 2.19 m/sec. Max PG 19.20 mmHg. Mean PG 10.10 mmHg. Aortic sclerosis without significant stenosis. Trace aortic valve regurgitation. Tricuspid Valve: Normal appearance of the tricuspid valve. Estimated peak PA systolic pressure 37 mmHg. There is mild tricuspid regurgitation. Pulmonic Valve: Normal pulmonic valve appearance. Pericardium: Medium to large pericardial effusion. Aorta: Normal aortic root. IVC: Normal size and normal respiratory collapse consistent with normal right atrial pressure. Conclusions Normal left ventricular systolic function. Normal left ventricular cavity size. Moderate concentric left ventricular hypertrophy. Ejection fraction is visually estimated at 65 %. Tissue Doppler/Mitral Doppler indices are consistent with impaired relaxation (Stage I diastolic dysfunction). Normal right ventricular size. Normal right ventricular systolic function. There is mild enlargement of left atrium. The right atrium is normal in size. Estimated peak PA systolic pressure 37 mmHg. There is mild tricuspid regurgitation. No significant valvular stenosis or regurgitation seen of remaining visualized valves. Medium to large pericardial effusion. Electronically Signed By: Amari Baez 02-Feb-2017 11:26:34 -0800 Medications Medications Current Medications Aspirin (Halfprin) 81 mg DAILY PO Last administered on 02/02/17 09:58; Admin Dose 81 MG; Start 02/01/17 at 09:00 Clonidine (Catapres) 0.1 mg BID PRN PO ELEVATED BLOOD PRESSURE Last administered on 02/01/17 17:11; Admin Dose 0.1 MG; Start 02/01/17 at 06:00 Multivit/Ca Carb/ B Cmplx/FA/Prenat (Lavern-Mike) 1 tab DAILY PO Last administered on 02/02/17 09:57; Admin Dose 1 TAB; Start 02/01/17 at 09:00 Atorvastatin Calcium (Lipitor) 20 mg QHS PO Last administered on 02/01/17 22: 10; Admin Dose 20 MG; Start 02/01/17 at 21:00 Docusate Sodium (Colace) 100 mg BID PRN PO CONSTIPATION; Start 02/01/17 at 09: 00 Morphine Sulfate (morphine) 1 mg Q2H PRN IV SEVERE PAIN LEVEL 7-10; Start at 06:30 Famotidine (Pepcid) 20 mg Q48H PO Last administered on 02/01/17 09:09; Admin Dose 20 MG; Start 02/01/17 at 09:00 Ondansetron HCl (Zofran Inj) 4 mg Q4H PRN IV NAUSEA AND/OR VOMITING; Start at 06:30 Miscellaneous Information 1 ea NOTE XX ; Start 02/01/17 at 07:00 Glucose (Glutose) 15 gm Q15M PRN PO DECREASED GLUCOSE; Start 02/01/17 at 07:00 Glucose (Glutose) 22.5 gm Q15M PRN PO DECREASED GLUCOSE; Start 02/01/17 at 07: 00 Dextrose (D50w Syringe) 25 ml Q15M PRN IV DECREASED GLUCOSE; Start 02/01/17 at 07:00 Dextrose (D50w Syringe) 50 ml Q15M PRN IV DECREASED GLUCOSE; Start 02/01/17 at 07:00 Glucagon (Glucagen) 1 mg Q15M PRN IM DECREASED GLUCOSE; Start 02/01/17 at 07: 00 Glucose (Glutose) 15 gm Q15M PRN BUCCAL DECREASED GLUCOSE; Start 02/01/17 at 07:00 Losartan Potassium (Cozaar) 50 mg BID PO Last administered on 02/02/17 09:58 ; Admin Dose 50 MG; Start 02/01/17 at 21:00 Nifedipine (Procardia Xl) 90 mg DAILY PO Last administered on 02/02/17 09:58 ; Admin Dose 90 MG; Start 02/01/17 at 18:00 Insulin Human NPH (Humulin N) 19 unit QAM SC Last administered on 02/02/17 10 :03; Admin Dose 19 UNIT; Start 02/02/17 at 09:00 Miscellaneous Information 10 mcg WEEKLY XX ; Start 02/08/17 at 09:00 Hydralazine HCl (Apresoline) 10 mg Q6H PRN IV ELEVATED BLOOD PRESSURE; Start 02/01/17 at 18:00 Carvedilol (Coreg) 6.25 mg BID PO Last administered on 02/02/17t 09:59; Admin Dose 6.25 MG; Start 02/01/17 at 21:00 EUGENE BURCIAGA Feb 02, 2017 12:55
--- NOTE | 2017-02-02 15:37 | CONS ---
Date/Time of Note Date/Time of Note DATE: 02/02/17 TIME: 15:31 Assessment/Plan Assessment/Plan Additional Assessment/Plan Medium to large pericardial effusion Shortness of breath Preserved ejection fraction End-stage renal disease on hemodialysis Hypertension -Echocardiogram performed with medium to large size pericardial effusion. There is evidence of right atrial invagination but the IVC is not dilated and does collapse. Clinically, there is currently no evidence of tamponade. I have spoken to our nephrology colleague and patient plan for increased fluid removal and hemodialysis today as well as tomorrow. Would repeat echocardiogram after hemodialysis to evaluate size of pericardial effusion, based on those findings, will decide plan of care. Holding parameters on antihypertensives for hypotension. Findings and plan of care was discussed with the patient in detail. Consultation Date/Type/Reason Admit Date/Time Feb 01, 2017 at 05:00 Initial Consult Date 02/01/17 Type of Consultation: cv Referring Provider: CHRISTINA VILLAR MD 24 HR Interval Summary Free Text/Dictation Shortness of breath has improved significantly. Denies lightheadedness or dizziness at rest or with activity. Denies chest pain Exam/Review of Systems Vital Signs Vitals Vital Signs Date Time Temp Pulse Resp B/P Pulse Ox O2 Delivery O2 Flow Rate FiO2 02/02/17 12:49 75 18 95 Nasal Cannula 2.0 02/02/17 11:59 97.4 139/65 Intake and Output 02/01/17 02/01/17 02/02/17 15:00 23:00 07:00 Intake Total 500 ml 200 ml Output Total 4000 ml Balance -3500 ml 200 ml Exam No apparent distress, no dyspnea with speaking, undergoing hemodialysis Constitutional: alert, obese, oriented Head: normocephalic Respiratory: other (Coarse breath sounds bilaterally, no wheezing) Cardiovascular: other (S1-S2 heard), regular rate and rhythm Gastrointestinal: bowel sounds, non-tender, soft Extremities: edema Results Result Diagram: 02/01/17 0815 02/01/17 0805 Results 24 hrs Laboratory Tests Test 02/01/17 17:33 02/01/17 19:03 02/02/17 10:01 02/02/17 12:05 Bedside Glucose 173 152 119 106 Medications Medications Current Medications Aspirin (Halfprin) 81 mg DAILY PO Last administered on 02/02/17t 09:58; Admin Dose 81 MG; Start 02/01/17 at 09:00 Clonidine (Catapres) 0.1 mg BID PRN PO ELEVATED BLOOD PRESSURE Last administered on 02/01/17 17:11; Admin Dose 0.1 MG; Start 02/01/17 at 06:00 Multivit/Ca Carb/ B Cmplx/FA/Prenat (Lavern-Mike) 1 tab DAILY PO Last administered on 02/02/17 09:57; Admin Dose 1 TAB; Start 02/01/17 at 09:00 Atorvastatin Calcium (Lipitor) 20 mg QHS PO Last administered on 02/01/17 22: 10; Admin Dose 20 MG; Start 02/01/17 at 21:00 Docusate Sodium (Colace) 100 mg BID PRN PO CONSTIPATION; Start 02/01/17 at 09: 00 Morphine Sulfate (morphine) 1 mg Q2H PRN IV SEVERE PAIN LEVEL 7-10; Start at 06:30 Famotidine (Pepcid) 20 mg Q48H PO Last administered on 02/01/17 09:09; Admin Dose 20 MG; Start 02/01/17 at 09:00 Ondansetron HCl (Zofran Inj) 4 mg Q4H PRN IV NAUSEA AND/OR VOMITING; Start at 06:30 Miscellaneous Information 1 ea NOTE XX ; Start 02/01/17 at 07:00 Glucose (Glutose) 15 gm Q15M PRN PO DECREASED GLUCOSE; Start 02/01/17 at 07:00 Glucose (Glutose) 22.5 gm Q15M PRN PO DECREASED GLUCOSE; Start 02/01/17 at 07: 00 Dextrose (D50w Syringe) 25 ml Q15M PRN IV DECREASED GLUCOSE; Start 02/01/17 at 07:00 Dextrose (D50w Syringe) 50 ml Q15M PRN IV DECREASED GLUCOSE; Start 02/01/17 at 07:00 Glucagon (Glucagen) 1 mg Q15M PRN IM DECREASED GLUCOSE; Start 02/01/17 at 07: 00 Glucose (Glutose) 15 gm Q15M PRN BUCCAL DECREASED GLUCOSE; Start 02/01/17 at 07:00 Losartan Potassium (Cozaar) 50 mg BID PO Last administered on 02/02/17 09:58 ; Admin Dose 50 MG; Start 02/01/17 at 21:00 Nifedipine (Procardia Xl) 90 mg DAILY PO Last administered on 02/02/17 09:58 ; Admin Dose 90 MG; Start 02/01/17 at 18:00 Insulin Human NPH (Humulin N) 19 unit QAM SC Last administered on 02/02/17 10 :03; Admin Dose 19 UNIT; Start 02/02/17 at 09:00 Miscellaneous Information 10 mcg WEEKLY XX ; Start 02/08/17 at 09:00 Hydralazine HCl (Apresoline) 10 mg Q6H PRN IV ELEVATED BLOOD PRESSURE; Start 02/01/17 at 18:00 Carvedilol (Coreg) 6.25 mg BID PO Last administered on 02/02/17 09:59; Admin Dose 6.25 MG; Start 02/01/17 at 21:00 Amari Baez DO Feb 02, 2017 15:37
[2017-02-02] MEDS: morphine 2 MG INJ IV PRN (16:04)
[2017-02-02 17:13] LABS: CALCIUM 9.2 mg/dl (8.4-10.2); CREATININE 6.18 mg/dl (0.44-1.00); POTASSIUM 4.2 mmol/L (3.5-5.1)
--- NOTE | 2017-02-02 19:07 | CONS ---
Date/Time of Note Date/Time of Note DATE: 02/02/17 TIME: 19:05 Assessment/Plan Assessment/Plan Additional Assessment/Plan (1) Acute on chronic diastolic congestive heart failure Status: Acute Comment: S/p HD improved, Will order Dry UF tomorrow (2) ESRD (end stage renal disease) on dialysis Status: Chronic Comment: HD TTS schedule (3) Chest pain Status: Acute Comment: Resolved (4) HTN (hypertension) Status: Chronic Comment: Cont current Rx and plan, Dry UF tomorrow. (5) Acute hyperkalemia Status: Acute Comment: Resolved (6) Anemia due to chronic kidney disease treated with erythropoietin Status: Chronic Comment: S/p KENNEDY, Cont KENNEDY with HD (7) Morbid obesity Status: Chronic (8) Pericardial effusion Discussed with Cardiology Plan for UF with HD Repeat Echo Consultation Date/Type/Reason Admit Date/Time Feb 01, 2017 at 05:00 Initial Consult Date 02/01/17 Type of Consultation: Renal Referring Provider: CHRISTINA VILLAR MD 24 HR Interval Summary Free Text/Dictation S/p HD Had chest pain during treatment Stopped early. Approx 2L removed Found to have pericardial effusion Exam/Review of Systems Vital Signs Vitals Vital Signs Date Time Temp Pulse Resp B/P Pulse Ox O2 Delivery O2 Flow Rate FiO2 02/02/17 16:53 76 18 92 Nasal Cannula 2.0 02/02/17 15:46 97.3 115/51 Intake and Output 02/01/17 02/01/17 02/02/17 15:00 23:00 07:00 Intake Total 500 ml 200 ml Output Total 4000 ml Balance -3500 ml 200 ml Exam Constitutional: No distress ENMT: mucosa pink and moist Respiratory: No labored breathing Cardiovascular: regular rate and rhythm, No edema Gastrointestinal: soft Neurological: nl mental status Results Result Diagram: 02/01/17 0815 02/02/17 1618 Results 24 hrs Laboratory Tests Test 02/02/17 10:01 02/02/17 12:05 02/02/17 16:18 02/02/17 17:33 Bedside Glucose 119 106 217 Sodium Level 140 Potassium Level 4.2 Chloride Level 95 L Carbon Dioxide Level 32 H Anion Gap 17 H Blood Urea Nitrogen 39 #H Creatinine 6.18 #H Glucose Level 63 #L Calcium Level 9.2 Medications Medications Current Medications Aspirin (Halfprin) 81 mg DAILY PO Last administered on 02/02/17 09:58; Admin Dose 81 MG; Start 02/01/17 at 09:00 Clonidine (Catapres) 0.1 mg BID PRN PO ELEVATED BLOOD PRESSURE Last administered on 02/01/17 17:11; Admin Dose 0.1 MG; Start 02/01/17 at 06:00 Multivit/Ca Carb/ B Cmplx/FA/Prenat (Lavern-Mike) 1 tab DAILY PO Last administered on 02/02/17 09:57; Admin Dose 1 TAB; Start 02/01/17 at 09:00 Atorvastatin Calcium (Lipitor) 20 mg QHS PO Last administered on 02/01/17 22: 10; Admin Dose 20 MG; Start 02/01/17 at 21:00 Docusate Sodium (Colace) 100 mg BID PRN PO CONSTIPATION; Start 02/01/17 at 09: 00 Morphine Sulfate (morphine) 1 mg Q2H PRN IV SEVERE PAIN LEVEL 7-10 Last administered on 02/02/17 16:04; Admin Dose 1 MG; Start 02/01/17 at 06:30 Famotidine (Pepcid) 20 mg Q48H PO Last administered on 02/01/17 09:09; Admin Dose 20 MG; Start 02/01/17 at 09:00 Ondansetron HCl (Zofran Inj) 4 mg Q4H PRN IV NAUSEA AND/OR VOMITING; Start at 06:30 Miscellaneous Information 1 ea NOTE XX ; Start 02/01/17 at 07:00 Glucose (Glutose) 15 gm Q15M PRN PO DECREASED GLUCOSE; Start 02/01/17 at 07:00 Glucose (Glutose) 22.5 gm Q15M PRN PO DECREASED GLUCOSE; Start 02/01/17 at 07: 00 Dextrose (D50w Syringe) 25 ml Q15M PRN IV DECREASED GLUCOSE; Start 02/01/17 at 07:00 Dextrose (D50w Syringe) 50 ml Q15M PRN IV DECREASED GLUCOSE; Start 02/01/17 at 07:00 Glucagon (Glucagen) 1 mg Q15M PRN IM DECREASED GLUCOSE; Start 02/01/17 at 07: 00 Glucose (Glutose) 15 gm Q15M PRN BUCCAL DECREASED GLUCOSE; Start 02/01/17 at 07:00 Losartan Potassium (Cozaar) 50 mg BID PO Last administered on 02/02/17 09:58 ; Admin Dose 50 MG; Start 02/01/17 at 21:00 Insulin Human NPH (Humulin N) 19 unit QAM SC Last administered on 02/02/17 10 :03; Admin Dose 19 UNIT; Start 02/02/17 at 09:00 Miscellaneous Information 10 mcg WEEKLY XX ; Start 02/08/17 at 09:00 Hydralazine HCl (Apresoline) 10 mg Q6H PRN IV ELEVATED BLOOD PRESSURE; Start 02/01/17 at 18:00 Carvedilol (Coreg) 6.25 mg BID PO Last administered on 02/02/17 09:59; Admin Dose 6.25 MG; Start 02/01/17 at 21:00 Nifedipine (Procardia Xl) 60 mg DAILY PO ; Start 02/03/17 at 09:00 COLLEEN PERAZA MD Feb 02, 2017 19:06
[2017-02-02] MEDS: ATORVASTATIN 20 MG TAB PO SCH (21:29)
[2017-02-03] VITALS (38 sets, daily range): BP systolic 119–187; BP diastolic 45–90; PULSE 66–89; RESP 10–24
[2017-02-03] MEDS: ALBUTEROL/IPRATROPIUM (NEB) 3 ML AMP NEB SCH ×6 (00:19→21:07)
[2017-02-03] MEDS: LEVOTHYROXINE 50 MCG TAB PO SCH (06:34)
[2017-02-03] MEDS: SEVELAMER CARBONATE 0.8 GM PKT PO SCH ×3 (08:00→17:52)
[2017-02-03] MEDS: INSULIN ASPART [NOVOLOG] 3 ML PEN SC SCH ×6 (08:00→21:00)
[2017-02-03] MEDS: CALCIUM ACETATE 667 MG CAP PO SCH ×3 (08:00→17:53)
[2017-02-03] MEDS: CALCIUM CARBONATE 500 MG CHEW TAB PO SCH ×3 (08:00→17:52)
[2017-02-03 08:01] LABS: ALBUMIN 3.8 g/dl (3.3-4.9); ALBUMIN/GLOBULIN RATIO 1.08; BILIRUBIN,INDIRECT 0.1 mg/dl (0-1.1); BILIRUBIN,TOTAL 0.1 mg/dl (0.2-1.3); CALCIUM 9.1 mg/dl (8.4-10.2); CREATININE 7.83 mg/dl (0.44-1.00); POTASSIUM 4.7 mmol/L (3.5-5.1); TOTAL PROTEIN 7.3 g/dl (6.1-8.1)
[2017-02-03 08:03] LABS: MAGNESIUM 2.1 mg/dl (1.7-2.5); PHOSPHORUS 4.8 mg/dl (2.5-4.9)
--- NOTE | 2017-02-03 08:18 | RADRPT ---
Vent Rate: 69 bpm RR Interval: 0 msec [place] Interval: 162 msec QRS Duration: 92 msec QT Interval: 390 msec QTC Interval: 417 msec P-R-T [place]: 76 - 72 - 100 degrees Normal sinus rhythm Low voltage QRS Nonspecific ST and T wave abnormality Abnormal ECG Electronically Signed By: Chapin Lynn [id number]
[2017-02-03] MEDS: FAMOTIDINE 20 MG TAB PO SCH (09:00)
[2017-02-03] MEDS: ASPIRIN (EC) 81 MG TAB PO SCH (09:00)
[2017-02-03] MEDS: NIFEdipine (XL) 90 MG TAB PO SCH ×2 (09:00→11:54)
[2017-02-03] MEDS: SEVELAMER CARBONATE 2.4 GM PKT PO SCH ×3 (09:00→17:54)
[2017-02-03] MEDS: LOSARTAN 50 MG TAB PO SCH ×3 (09:00→21:02)
[2017-02-03] MEDS: MULTIVIT/CA CARB/B CMPLX/FA TAB PO SCH (09:00)
[2017-02-03] MEDS: NPH, HUMAN INSULIN ISOPHANE 3ML VIAL SC SCH (09:45)
--- NOTE | 2017-02-03 10:50 | RADRPT ---
Echocardiogram Report Patient Name: VALERIA MOTLEY Gender: Female Date: 1945 Study Date: 03-Feb-2017 Evp Strategy: Adrian Coker [facility] Location: [address] Ref. Physician: CHRISTINA VILLAR Quality: Adequate Procedures: Transthoracic echocardiogram examination. Indications: F/U Pericardial effusion. Findings Left Ventricle: Normal left ventricular systolic function. The left ventricular ejection fraction is visually estimated at 65 %. Right Ventricle: Normal right ventricular systolic function. Mitral Valve: Mild mitral annular calcification. Trivial mitral regurgitation. Pericardium: Moderate to large pericardial effusion. IVC: Dilated inferior vena cava with respiratory collapse only with sniff. Conclusions Normal left ventricular systolic function. The left ventricular ejection fraction is visually estimated at 65 %. Normal right ventricular systolic function. Moderate to large pericardial effusion. Electronically Signed By: Amari Beaz 03-Feb-2017 10:49:38 -0800 Patient Name: VALERIA MOTLEY Study Date: 03-Feb-[id number]
--- NOTE | 2017-02-03 11:45 | PN ---
Date/Time of Note Date/Time of Note DATE: 02/03/17 TIME: 11:36 Assessment/Plan VTE Prophylaxis VTE Prophylaxis Intervention: SCD's Lines/Catheters [facility] Mid Line Central line still needed: Yes (IV access) Urinary Cath still in place: No Assessment/Plan Assessment/Plan 71-year-old female with: 1. Large pericardial effusion on repeat echocardiogram this morning, this is post hemodialysis 2, also even if clinically stable, now large pericardial effusion showing signs of impending tamponade on echocardiogram. Therefore patient to have pericardiocentesis today by Dr. Baez with likely a drain to be left in place. Blood pressure control. Continue other medications. 2. End-stage renal disease, on hemodialysis, 3 times per week. Hyperkalemia resolved Continue hemodialysis per schedule, he has been dialyzed more or less daily on this admission for volume management. 3. Acute on chronic diastolic heart failure, on hemodialysis. Patient volume status is much improved today. 4. Hypertension: Better controlled today with dialysis and medications adjusted per cardiology, beta-blockers changed to carvedilol 5. Chronic anemia secondary to chronic kidney disease, hemoglobin stable, continue to monitor. 6. Diabetes mellitus: Continue current insulin regimen, diabetic/renal diet. Monitor for hypoglycemic episodes. 7. Hypothyroidism: Continue Synthroid 8. Hyperlipidemia: Continue statin therapy 9. Morbid obesity, lifestyle modification, increase ambulation. Prophylaxis: Pepcid for GI prophylaxis, SCDs for DVT prophylaxis Disposition: Pericardiocentesis with drain placement today with Dr. Baez. Subjective 24 Hr Interval Summary Free Text/Dictation Patient sitting up, no chest pain, no shortness of breath. However repeat echocardiogram this morning showing large pericardial effusion with impending tamponade. Patient to get pericardiocentesis today. Exam/Review of Systems Vital Signs Vitals Vital Signs Date Time Temp Pulse Resp B/P Pulse Ox O2 Delivery O2 Flow Rate FiO2 02/03/17 09:43 100 3.0 02/03/17 09:43 76 18 Nasal Cannula 02/03/17 07:54 97.9 186/80 Intake and Output 02/02/17 02/02/17 02/03/17 15:00 23:00 07:00 Intake Total 1000 ml 450 ml Output Total 2000 ml Balance -1000 ml 450 ml Exam Constitutional: alert, obese (Morbid), oriented, well developed Respiratory: clear to auscultation, normal air movement Cardiovascular: nl pulses, other (Large pericardial effusion), regular rate and rhythm Gastrointestinal: non-tender, soft Musculoskeletal: nl extremities to inspection, nl gait and stance Extremities: normal pulses, other (No edema, clubbing or cyanosis) Neurological: ASSISTANT [employer]OL[employer]ESSIONAL II-XII intact, nl mental status, nl speech, nl strength Results Result Diagram: 02/01/17 0815 02/03/17 0656 Results 24 hrs Laboratory Tests Test 02/02/17 12:05 02/02/17 16:18 02/02/17 17:03 02/02/17 17:33 Bedside Glucose 106 52 L 217 Sodium Level 140 Potassium Level 4.2 Chloride Level 95 L Carbon Dioxide Level 32 H Anion Gap 17 H Blood Urea Nitrogen 39 #H Creatinine 6.18 #H Glucose Level 63 #L Calcium Level 9.2 Test 02/03/17 06:56 02/03/17 08:59 Sodium Level 139 Potassium Level 4.7 Chloride Level 95 L Carbon Dioxide Level 28 Anion Gap 21 H Blood Urea Nitrogen 50 H Creatinine 7.83 H Glucose Level 101 Calcium Level 9.1 Phosphorus Level 4.8 Magnesium Level 2.1 Total Bilirubin 0.1 L Direct Bilirubin 0.00 Indirect Bilirubin 0.1 Aspartate Amino Transf (AST/SGOT) 31 Alanine Aminotransferase (ALT/SGPT) 39 Alkaline Phosphatase 88 Total Protein 7.3 Albumin 3.8 Globulin 3.50 H Albumin/Globulin Ratio 1.08 Bedside Glucose 142 Imaging Free Text/Dictation Echocardiogram Report Patient Name: VALERIA MOTLEY Gender: Female Date: 1945 Study Date: 03-Feb-2017 Outreach Nurse: Adrian Coker [facility] Location: [address] Ref. Physician: CHRISTINA VILLAR Quality: Adequate Procedures: Transthoracic echocardiogram examination. Indications: F/U Pericardial effusion. Findings Left Ventricle: Normal left ventricular systolic function. The left ventricular ejection fraction is visually estimated at 65 %. Right Ventricle: Normal right ventricular systolic function. Mitral Valve: Mild mitral annular calcification. Trivial mitral regurgitation. Pericardium: Moderate to large pericardial effusion. IVC: Dilated inferior vena cava with respiratory collapse only with sniff. Conclusions Normal left ventricular systolic function. The left ventricular ejection fraction is visually estimated at 65 %. Normal right ventricular systolic function. Moderate to large pericardial effusion. Electronically Signed By: Amari Baez 03-Feb-2017 10:49:38 -0800 Patient Name: VALERIA MOTLEY Study Date: 03-Feb-2017 Medications Medications Current Medications Aspirin (Halfprin) 81 mg DAILY PO Last administered on 02/02/17 09:58; Admin Dose 81 MG; Start 02/01/17 at 09:00 Clonidine (Catapres) 0.1 mg BID PRN PO ELEVATED BLOOD PRESSURE Last administered on 02/01/17 17:11; Admin Dose 0.1 MG; Start 02/01/17 at 06:00 Multivit/Ca Carb/ B Cmplx/FA/Prenat (Lavern-Mike) 1 tab DAILY PO Last administered on 02/02/17 09:57; Admin Dose 1 TAB; Start 02/01/17 at 09:00 Atorvastatin Calcium (Lipitor) 20 mg QHS PO Last administered on 02/02/17 21: 29; Admin Dose 20 MG; Start 02/01/17 at 21:00 Docusate Sodium (Colace) 100 mg BID PRN PO CONSTIPATION; Start 02/01/17 at 09: 00 Morphine Sulfate (morphine) 1 mg Q2H PRN IV SEVERE PAIN LEVEL 7-10 Last administered on 02/02/17 16:04; Admin Dose 1 MG; Start 02/01/17 at 06:30 Famotidine (Pepcid) 20 mg Q48H PO Last administered on 02/01/17 09:09; Admin Dose 20 MG; Start 02/01/17 at 09:00 Ondansetron HCl (Zofran Inj) 4 mg Q4H PRN IV NAUSEA AND/OR VOMITING; Start at 06:30 Miscellaneous Information 1 ea NOTE XX ; Start 02/01/17 at 07:00 Glucose (Glutose) 15 gm Q15M PRN PO DECREASED GLUCOSE; Start 02/01/17 at 07:00 Glucose (Glutose) 22.5 gm Q15M PRN PO DECREASED GLUCOSE; Start 02/01/17 at 07: 00 Dextrose (D50w Syringe) 25 ml Q15M PRN IV DECREASED GLUCOSE; Start 02/01/17 at 07:00 Dextrose (D50w Syringe) 50 ml Q15M PRN IV DECREASED GLUCOSE; Start 02/01/17 at 07:00 Glucagon (Glucagen) 1 mg Q15M PRN IM DECREASED GLUCOSE; Start 02/01/17 at 07: 00 Glucose (Glutose) 15 gm Q15M PRN BUCCAL DECREASED GLUCOSE; Start 02/01/17 at 07:00 Losartan Potassium (Cozaar) 50 mg BID PO Last administered on 02/02/17 21:29 ; Admin Dose 50 MG; Start 02/01/17 at 21:00 Insulin Human NPH (Humulin N) 19 unit QAM SC Last administered on 02/03/17 09 :45; Admin Dose 19 UNIT; Start 02/02/17 at 09:00 Miscellaneous Information 10 mcg WEEKLY XX ; Start 02/08/17 at 09:00 Hydralazine HCl (Apresoline) 10 mg Q6H PRN IV ELEVATED BLOOD PRESSURE; Start 02/01/17 at 18:00 Carvedilol (Coreg) 6.25 mg BID PO Last administered on 02/02/17 21:29; Admin Dose 6.25 MG; Start 02/01/17 at 21:00 Nifedipine (Procardia Xl) 60 mg DAILY PO ; Start 02/03/17 at 09:00 EUGENE BURCIAGA Feb 03, 2017 11:45
[2017-02-03] MEDS ORDERED: FENTAnyl 50 MCG/ML VIAL ONE (12:32)
[2017-02-03] MEDS ORDERED: LIDOCAINE 1% (MDV) 20 ML INJ ONE (12:32)
[2017-02-03] MEDS ORDERED: MIDAZOLAM 1 MG/ML 2 ML INJ ONE (12:33)
--- NOTE | 2017-02-03 13:00 | CONS ---
Date/Time of Note Date/Time of Note DATE: 02/03/17 TIME: 12:58 Assessment/Plan Assessment/Plan Additional Assessment/Plan Medium to large pericardial effusion Shortness of breath Preserved ejection fraction End-stage renal disease on hemodialysis Hypertension -Patient status post hemodialysis yesterday and today. Repeat echocardiogram with slightly increased pericardial effusion compared to yesterday. Furthermore , there is further invagination of the right atrium and near collapse of the right ventricle. Given the worsening pericardial effusion and no improvement after hemodialysis, would proceed with pericardiocentesis. The procedure was placed the patient as well as family at bedside. Consultation Date/Type/Reason Admit Date/Time Feb 01, 2017 at 05:00 Initial Consult Date 02/01/17 Type of Consultation: cv Referring Provider: CHRISTINA VILLAR MD 24 HR Interval Summary Free Text/Dictation Patient denies shortness of breath, dizziness or chest pain today. Underwent hemodialysis this morning Exam/Review of Systems Vital Signs Vitals Vital Signs Date Time Temp Pulse Resp B/P Pulse Ox O2 Delivery O2 Flow Rate FiO2 02/03/17 12: 78 02/03/17 11:55 99.9 19 187/90 100 02/03/17 09:43 3.0 02/03/17 09:43 Nasal Cannula Intake and Output 02/02/17 02/02/17 02/03/17 14:59 22:59 06:59 Intake Total 1000 ml 450 ml Output Total 2000 ml Balance -1000 ml 450 ml Exam No apparent distress Constitutional: alert, obese, oriented Head: normocephalic Respiratory: other (Coarse breath sounds bilaterally, no wheezing) Cardiovascular: other (S1-S2 heard), regular rate and rhythm Gastrointestinal: bowel sounds, non-tender, soft Extremities: edema Results Result Diagram: 02/01/17 0815 02/03/17 0656 Results 24 hrs Laboratory Tests Test 02/02/17 16:18 02/02/17 17:03 02/02/17 17:33 02/03/17 06:56 Sodium Level 140 139 Potassium Level 4.2 4.7 Chloride Level 95 L 95 L Carbon Dioxide Level 32 H 28 Anion Gap 17 H 21 H Blood Urea Nitrogen 39 #H 50 H Creatinine 6.18 #H 7.83 H Glucose Level 63 #L 101 Calcium Level 9.2 9.1 Bedside Glucose 52 L 217 Phosphorus Level 4.8 Magnesium Level 2.1 Total Bilirubin 0.1 L Direct Bilirubin 0.00 Indirect Bilirubin 0.1 Aspartate Amino Transf (AST/SGOT) 31 Alanine Aminotransferase (ALT/SGPT) 39 Alkaline Phosphatase 88 Total Protein 7.3 Albumin 3.8 Globulin 3.50 H Albumin/Globulin Ratio 1.08 Test 02/03/17 08:59 02/03/17 11:56 Bedside Glucose 142 109 Medications Medications Current Medications Aspirin (Halfprin) 81 mg DAILY PO Last administered on 02/02/17 09:58; Admin Dose 81 MG; Start 02/01/17 at 09:00 Clonidine (Catapres) 0.1 mg BID PRN PO ELEVATED BLOOD PRESSURE Last administered on 02/01/17 17:11; Admin Dose 0.1 MG; Start 02/01/17 at 06:00 Multivit/Ca Carb/ B Cmplx/FA/Prenat (Lavern-Mike) 1 tab DAILY PO Last administered on 02/02/17 09:57; Admin Dose 1 TAB; Start 02/01/17 at 09:00 Atorvastatin Calcium (Lipitor) 20 mg QHS PO Last administered on 02/02/17 21: 29; Admin Dose 20 MG; Start 02/01/17 at 21:00 Docusate Sodium (Colace) 100 mg BID PRN PO CONSTIPATION; Start 02/01/17 at 09: 00 Morphine Sulfate (morphine) 1 mg Q2H PRN IV SEVERE PAIN LEVEL 7-10 Last administered on 02/02/17 16:04; Admin Dose 1 MG; Start 02/01/17 at 06:30 Famotidine (Pepcid) 20 mg Q48H PO Last administered on 02/01/17 09:09; Admin Dose 20 MG; Start 02/01/17 at 09:00 Ondansetron HCl (Zofran Inj) 4 mg Q4H PRN IV NAUSEA AND/OR VOMITING; Start at 06:30 Miscellaneous Information 1 ea NOTE XX ; Start 02/01/17 at 07:00 Glucose (Glutose) 15 gm Q15M PRN PO DECREASED GLUCOSE; Start 02/01/17 at 07:00 Glucose (Glutose) 22.5 gm Q15M PRN PO DECREASED GLUCOSE; Start 02/01/17 at 07: 00 Dextrose (D50w Syringe) 25 ml Q15M PRN IV DECREASED GLUCOSE; Start 02/01/17 at 07:00 Dextrose (D50w Syringe) 50 ml Q15M PRN IV DECREASED GLUCOSE; Start 02/01/17 at 07:00 Glucagon (Glucagen) 1 mg Q15M PRN IM DECREASED GLUCOSE; Start 02/01/17 at 07: 00 Glucose (Glutose) 15 gm Q15M PRN BUCCAL DECREASED GLUCOSE; Start 02/01/17 at 07:00 Losartan Potassium (Cozaar) 50 mg BID PO Last administered on 02/03/17 11:54 ; Admin Dose 50 MG; Start 02/01/17 at 21:00 Insulin Human NPH (Humulin N) 19 unit QAM SC Last administered on 02/03/17 09 :45; Admin Dose 19 UNIT; Start 02/02/17 at 09:00 Miscellaneous Information 10 mcg WEEKLY XX ; Start 02/08/17 at 09:00 Hydralazine HCl (Apresoline) 10 mg Q6H PRN IV ELEVATED BLOOD PRESSURE; Start 02/01/17 at 18:00 Carvedilol (Coreg) 6.25 mg BID PO Last administered on 02/03/17 11:53; Admin Dose 6.25 MG; Start 02/01/17 at 21:00 Nifedipine (Procardia Xl) 60 mg DAILY PO Last administered on 02/03/17 11:54 ; Admin Dose 60 MG; Start 02/03/17 at 09:00 Diagnostic Test (Pha) (Accu-Chek) 1 ea 02 XX ; Start 02/04/17 at 02:00 Amari Baez DO Feb 03, 2017 13:00
--- NOTE | 2017-02-03 13:24 | CONS ---
Date/Time of Note Date/Time of Note DATE: 02/03/17 TIME: 13:23 Assessment/Plan Assessment/Plan Additional Assessment/Plan (1) Acute on chronic diastolic congestive heart failure Status: Acute Comment: S/p HD (2) ESRD (end stage renal disease) on dialysis Status: Chronic Comment: HD TTS schedule (3) Chest pain Status: Acute Comment: Resolved (4) HTN (hypertension) Status: Chronic Comment: Cont current Rx and plan, Dry UF tomorrow. (5) Acute hyperkalemia Status: Acute Comment: Resolved (6) Anemia due to chronic kidney disease treated with erythropoietin Status: Chronic Comment: S/p KENNEDY, Cont KENNEDY with HD (7) Morbid obesity Status: Chronic (8) Pericardial effusion Pending procedure Consultation Date/Type/Reason Admit Date/Time Feb 01, 2017 at 05:00 Initial Consult Date 02/01/17 Type of Consultation: Renal Referring Provider: CHRISTINA VILLAR MD 24 HR Interval Summary Free Text/Dictation S/p HD Repeat ECHO, worsening effusion went down for Pericardiocentesis. Exam/Review of Systems Vital Signs Vitals Vital Signs Date Time Temp Pulse Resp B/P Pulse Ox O2 Delivery O2 Flow Rate FiO2 02/03/17 12:17 78 02/03/17 11:55 99.9 19 187/90 100 02/03/17 09:43 3.0 02/03/17 09:43 Nasal Cannula Intake and Output 02/02/17 02/02/17 02/03/17 14:59 22:59 06:59 Intake Total 1000 ml 450 ml Output Total 2000 ml Balance -1000 ml 450 ml Exam Constitutional: No distress ENMT: mucosa pink and moist Neck: No jvd Respiratory: No crackles/rales, No labored breathing Cardiovascular: regular rate and rhythm, No edema Gastrointestinal: soft Neurological: No lethargic Skin: No diaphoresis Results Result Diagram: 02/01/17 0815 02/03/17 0656 Results 24 hrs Laboratory Tests Test 02/02/17 16:18 02/02/17 17:03 02/02/17 17:33 02/03/17 06:56 Sodium Level 140 139 Potassium Level 4.2 4.7 Chloride Level 95 L 95 L Carbon Dioxide Level 32 H 28 Anion Gap 17 H 21 H Blood Urea Nitrogen 39 #H 50 H Creatinine 6.18 #H 7.83 H Glucose Level 63 #L 101 Calcium Level 9.2 9.1 Bedside Glucose 52 L 217 Phosphorus Level 4.8 Magnesium Level 2.1 Total Bilirubin 0.1 L Direct Bilirubin 0.00 Indirect Bilirubin 0.1 Aspartate Amino Transf (AST/SGOT) 31 Alanine Aminotransferase (ALT/SGPT) 39 Alkaline Phosphatase 88 Total Protein 7.3 Albumin 3.8 Globulin 3.50 H Albumin/Globulin Ratio 1.08 Test 02/03/17 08:59 02/03/17 11:56 Bedside Glucose 142 109 Medications Medications Current Medications Aspirin (Halfprin) 81 mg DAILY PO Last administered on 02/02/17 09:58; Admin Dose 81 MG; Start 02/01/17 at 09:00 Clonidine (Catapres) 0.1 mg BID PRN PO ELEVATED BLOOD PRESSURE Last administered on 02/01/17 17:11; Admin Dose 0.1 MG; Start 02/01/17 at 06:00 Multivit/Ca Carb/ B Cmplx/FA/Prenat (Lavern-Mike) 1 tab DAILY PO Last administered on 02/02/17 09:57; Admin Dose 1 TAB; Start 02/01/17 at 09:00 Atorvastatin Calcium (Lipitor) 20 mg QHS PO Last administered on 02/02/17 21: 29; Admin Dose 20 MG; Start 02/01/17 at 21:00 Docusate Sodium (Colace) 100 mg BID PRN PO CONSTIPATION; Start 02/01/17 at 09: 00 Morphine Sulfate (morphine) 1 mg Q2H PRN IV SEVERE PAIN LEVEL 7-10 Last administered on 02/02/17 16:04; Admin Dose 1 MG; Start 02/01/17 at 06:30 Famotidine (Pepcid) 20 mg Q48H PO Last administered on 02/01/17 09:09; Admin Dose 20 MG; Start 02/01/17 at 09:00 Ondansetron HCl (Zofran Inj) 4 mg Q4H PRN IV NAUSEA AND/OR VOMITING; Start at 06:30 Miscellaneous Information 1 ea NOTE XX ; Start 02/01/17 at 07:00 Glucose (Glutose) 15 gm Q15M PRN PO DECREASED GLUCOSE; Start 02/01/17 at 07:00 Glucose (Glutose) 22.5 gm Q15M PRN PO DECREASED GLUCOSE; Start 02/01/17 at 07: 00 Dextrose (D50w Syringe) 25 ml Q15M PRN IV DECREASED GLUCOSE; Start 02/01/17 at 07:00 Dextrose (D50w Syringe) 50 ml Q15M PRN IV DECREASED GLUCOSE; Start 02/01/17 at 07:00 Glucagon (Glucagen) 1 mg Q15M PRN IM DECREASED GLUCOSE; Start 02/01/17 at 07: 00 Glucose (Glutose) 15 gm Q15M PRN BUCCAL DECREASED GLUCOSE; Start 02/01/17 at 07:00 Losartan Potassium (Cozaar) 50 mg BID PO Last administered on 02/03/17 11:54 ; Admin Dose 50 MG; Start 02/01/17 at 21:00 Insulin Human NPH (Humulin N) 19 unit QAM SC Last administered on 02/03/17 09 :45; Admin Dose 19 UNIT; Start 02/02/17 at 09:00 Miscellaneous Information 10 mcg WEEKLY XX ; Start 02/08/17 at 09:00 Hydralazine HCl (Apresoline) 10 mg Q6H PRN IV ELEVATED BLOOD PRESSURE; Start 02/01/17 at 18:00 Carvedilol (Coreg) 6.25 mg BID PO Last administered on 02/03/17 11:53; Admin Dose 6.25 MG; Start 02/01/17 at 21:00 Nifedipine (Procardia Xl) 60 mg DAILY PO Last administered on 02/03/17 11:54 ; Admin Dose 60 MG; Start 02/03/17 at 09:00 Diagnostic Test (Pha) (Accu-Chek) 1 ea 02 XX ; Start 02/04/17 at 02:00 COLLEEN PERAZA MD Feb 03, 2017 13:24
--- NOTE | 2017-02-03 14:09 | OPR ---
Date/Time of Note Date/Time of Note DATE: 02/03/17 TIME: 14:06 Operative Report Procedure Date: Feb 03, 2017 Preoperative Diagnosis Large pericardial effusion Postoperative Diagnosis Large pericardial effusion Operation/Procedure Performed Pericardiocentesis Surgeon see signature line Glove Pairer None Anesthesia Type: moderate sedation Estimated Blood Loss: minimal Transfusion none Specimen Pericardial fluid Grafts/Implants none Complications none Pt Condition Post Procedure: stable Procedure Description Patient prepped and draped in C++ Professor. Initially, ultrasound was used for localization of fluid in pericardium. Skin was anesthetized. The needle was advanced into the pericardium. Agitated saline was injected in the pericardium and confirmed under echo that we were in the pericardium. Wire was advanced and region was dilated and a pigtail was placed in the pericardium. Fluoroscopy used to confirm at that time. 650 mL's were removed. Pigtail was left in place. There was no immediate complications Amari Baez DO Feb 03, 2017 14:09
[2017-02-03] MEDS: morphine 2 MG INJ IV PRN ×2 (14:51→19:29)
[2017-02-03] MEDS: KETOROLAC 15 MG INJ IV SCH ×2 (15:27→21:01)
[2017-02-03 16:17] LABS: PTH CALCIUM 8.9 mg/dL (8.6-10.4)
--- NOTE | 2017-02-03 18:40 | RADRPT ---
Echocardiogram Report Patient Name: VALERIA MOTLEY Gender: Female Date: 1945 Study Date: 03-Feb-2017 Sole Tacker: Janel [facility] Location: [facility] Ref. Physician: CHRISTINA VILLAR Quality: Adequate Procedures: Transthoracic echocardiogram examination. Indications: Pericardial centesis. Findings Left Ventricle: Normal left ventricular systolic function. Right Ventricle: Normal right ventricular systolic function. Pericardium: Normal pericardium with no significant pericardial effusion. Conclusions 1.Per-procedural echocardiogram. 2.Patient with medium to large pericardial effusion. After pericardiocentesis, trivial pericardial effusion. Electronically Signed By: Amari Baez 03-Feb-2017 18:40:20 -0800 Patient Name: VALERIA MOTLEY Study Date: 03-Feb-[id number]
[2017-02-03 19:37] LABS: FLD RBC 3000 /uL; FLD WBC 224 /cmm
[2017-02-03 20:12] LABS: FLD CLARITY CLOUDY; FLD COLOR YELLOW; FLD TYPE PERICARDIAL
[2017-02-03] MEDS: ATORVASTATIN 20 MG TAB PO SCH (21:01)
[2017-02-04] VITALS (36 sets, daily range): BP systolic 79–163; BP diastolic 52–158; PULSE 55–99; RESP 14–35
[2017-02-04] MEDS: ALBUTEROL/IPRATROPIUM (NEB) 3 ML AMP NEB SCH ×6 (00:46→20:15)
[2017-02-04] MEDS: KETOROLAC 15 MG INJ IV SCH ×4 (02:19→20:59)
[2017-02-04] MEDS: ACCU-CHEK XX SCH (02:19)
[2017-02-04 05:28] LABS: BASOPHILS % 0.3 % (0.0-2.0); EOSINOPHILS # 1.1 10^3/ul (0.0-0.5); EOSINOPHILS % 11.9 % (0.0-7.0); HEMATOCRIT 30.3 % (37.0-47.0); HEMOGLOBIN 9.7 g/dl (12.0-16.0); LYMPHOCYTES # 0.9 10^3/ul (0.8-2.9); LYMPHOCYTES % 9.4 % (15.0-51.0); MEAN CORPUSCULAR HEMOGLOBIN 29.8 pg (29.0-33.0); MEAN CORPUSCULAR VOLUME 92.9 fl (82.0-101.0); MEAN PLATELET VOLUME 9.5 fl (7.4-10.4); MONOCYTE # 0.7 10^3/ul (0.3-0.9); MONOCYTES % 7.1 % (0.0-11.0); NEUTROPHIL # 6.8 10^3/ul (1.6-7.5); NEUTROPHILS % 71.1 % (39.0-77.0); PLATELET COUNT 203 10^3/UL (140-415); RED BLOOD COUNT 3.26 10^6/ul (4.20-5.40); RED CELL DISTRIBUTION WIDTH 14.6 % (11.5-14.5); WHITE BLOOD COUNT 9.5 10^3/ul (4.8-10.8)
[2017-02-04 06:17] LABS: PHOSPHORUS 4.1 mg/dl (2.5-4.9)
[2017-02-04 06:34] LABS: CALCIUM 9.1 mg/dl (8.4-10.2); CREATININE 6.57 mg/dl (0.44-1.00); POTASSIUM 4.3 mmol/L (3.5-5.1)
[2017-02-04] MEDS: morphine 2 MG INJ IV PRN ×2 (08:57→14:40)
[2017-02-04] MEDS: SEVELAMER CARBONATE 2.4 GM PKT PO SCH ×3 (10:03→17:49)
[2017-02-04] MEDS: SEVELAMER CARBONATE 0.8 GM PKT PO SCH ×3 (10:03→17:49)
[2017-02-04] MEDS: MULTIVIT/CA CARB/B CMPLX/FA TAB PO SCH (10:05)
[2017-02-04] MEDS: CALCIUM CARBONATE 500 MG CHEW TAB PO SCH ×3 (10:05→17:49)
[2017-02-04] MEDS: LOSARTAN 50 MG TAB PO SCH ×2 (10:06→20:58)
[2017-02-04] MEDS: ASPIRIN (EC) 81 MG TAB PO SCH (10:06)
[2017-02-04] MEDS: CALCIUM ACETATE 667 MG CAP PO SCH ×3 (10:07→17:49)
[2017-02-04] MEDS: LEVOTHYROXINE 50 MCG TAB PO SCH (10:12)
[2017-02-04] MEDS: INSULIN ASPART [NOVOLOG] 3 ML PEN SC SCH ×7 (10:17→21:00)
--- NOTE | 2017-02-04 11:41 | PN ---
Date/Time of Note Date/Time of Note DATE: 02/04/17 TIME: 11:25 Assessment/Plan VTE Prophylaxis VTE Prophylaxis Intervention: SCD's Lines/Catheters IV Catheter Type (from Nrsg): Mid Line Central line still needed: Yes (IV access) Urinary Cath still in place: No Assessment/Plan Assessment/Plan 71-year-old female with: 1. Status post pericardiocentesis for large pericardial effusions with showing signs of impending tamponade on echocardiogram, POD#[address], patient in ICU post procedure Remains stable this morning, appreciate follow-ups and recommendations from Dr. Baez. Blood pressure control. Continue other medications. 2. End-stage renal disease, on hemodialysis, 3 times per week. Hyperkalemia resolved. Status post HD this morning. 3. Acute on chronic diastolic heart failure, on HD. Status post pericardiocentesis. Respiratory status much improved. 4. Hypertension: Better controlled today, continue medications and HD. 5. Chronic anemia secondary to chronic kidney disease, hemoglobin stable, continue to monitor. 6. Diabetes mellitus: Discussed with patient, will verify with her daughter but she reports that she does not take NPH in the morning, she only basically does a sliding scale insulin and seems to give herself 4 units of insulin with breakfast and lunch mainly. We will continue her pre-meal insulin sliding scale insulin for now, trial of Lantus and check a hemoglobin A1c if not done. Continue diabetic/renal diet. 7. Hypothyroidism: Continue Synthroid 8. Hyperlipidemia: Continue statin therapy 9. Morbid obesity, lifestyle modification, increase ambulation. Prophylaxis: Pepcid for GI prophylaxis, SCDs for DVT prophylaxis Disposition: Follow-up further recommendations from cardiology later today, if pericardial drain removed, patient will be transferred to a telemetry bed with anticipated hemodialysis tomorrow and hopefully discharge planning this weekend. Subjective 24 Hr Interval Summary Free Text/Dictation Patient feels much better, she has no respiratory distress, she is on room air. She did get dialyzed this morning. She status post pericardiocentesis with pericardial drain in place yesterday. Appreciate recommendations from cardiology today. Patient is otherwise stable, in the intensive care unit as long as she has a pericardial drain in place. Exam/Review of Systems Vital Signs Vitals Vital Signs Date Time Temp Pulse Resp B/P Pulse Ox O2 Delivery O2 Flow Rate FiO2 02/04/17 08:00 71 02/04/17 07:41 2.0 02/04/17 07:41 18 100 Nasal Cannula 02/04/17 06:00 152/61 02/04/17 04:00 98.8 Intake and Output 02/03/17 02/03/17 02/04/17 15:00 23:00 07:00 Intake Total 500 ml 650 ml 600 ml Output Total 3500 ml 2500 ml Balance -3000 ml 650 ml -1900 ml Exam Constitutional: alert, obese, oriented, well developed Respiratory: clear to auscultation, normal air movement Cardiovascular: nl pulses, other (Pericardial drain in place), regular rate and rhythm Gastrointestinal: non-tender, soft Musculoskeletal: nl extremities to inspection Extremities: normal pulses, other (No edema, clubbing or cyanosis) 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, nl mental status, nl speech, nl strength Results Result Diagram: 02/04/17 0400 02/04/17 0400 Results 24 hrs Laboratory Tests Test 02/03/17 11:56 02/03/17 13:51 02/03/17 14:57 02/03/17 15:18 Bedside Glucose 109 72 184 Body Fluid Type PERICARDIAL Body Fluid Volume 550.0 Body Fluid Color YELLOW Body Fluid Appearance CLOUDY Body Fluid WBC 224 Body Fluid RBC (Auto) 3000 Body Fluid Polynuclear WBCs (%) 4.0 Body Fluid Mononuclear Cells % Auto 96.0 Test 02/03/17 17:30 02/03/17 20:56 02/03/17 20:57 02/03/17 21:15 Bedside Glucose 104 54 L 58 L 62 L Test 02/03/17 21:38 02/03/17 22:49 02/04/17 02:21 02/04/17 04:00 Bedside Glucose 85 146 172 White Blood Count 9.5 Red Blood Count 3.26 L Hemoglobin 9.7 L Hematocrit 30.3 L Mean Corpuscular Volume 92.9 Mean Corpuscular Hemoglobin 29.8 Mean Corpuscular Hemoglobin Concent 32.0 Red Cell Distribution Width 14.6 H Platelet Count 203 Mean Platelet Volume 9.5 Neutrophils % 71.1 Lymphocytes % 9.4 L Monocytes % 7.1 Eosinophils % 11.9 H Basophils % 0.3 Nucleated Red Blood Cells % 0.0 Neutrophils # 6.8 Lymphocytes # 0.9 Monocytes # 0.7 Eosinophils # 1.1 H Basophils # 0.0 Nucleated Red Blood Cells # 0.0 Sodium Level 141 Potassium Level 4.3 Chloride Level 96 L Carbon Dioxide Level 31 Anion Gap 18 H Blood Urea Nitrogen 36 #H Creatinine 6.57 H Glucose Level 147 # Calcium Level 9.1 Phosphorus Level 4.1 Magnesium Level 2.0 Test 02/04/17 10:02 Bedside Glucose 148 Medications Medications Current Medications Aspirin (Halfprin) 81 mg DAILY PO Last administered on 02/04/17 10:06; Admin Dose 81 MG; Start 02/01/17 at 09:00 Clonidine (Catapres) 0.1 mg BID PRN PO ELEVATED BLOOD PRESSURE Last administered on 02/01/17 17:11; Admin Dose 0.1 MG; Start 02/01/17 at 06:00 Multivit/Ca Carb/ B Cmplx/FA/Prenat (Lavern-Mike) 1 tab DAILY PO Last administered on 02/04/17 10:05; Admin Dose 1 TAB; Start 02/01/17 at 09:00 Atorvastatin Calcium (Lipitor) 20 mg QHS PO Last administered on 02/03/17 21: 01; Admin Dose 20 MG; Start 02/01/17 at 21:00 Docusate Sodium (Colace) 100 mg BID PRN PO CONSTIPATION; Start 02/01/17 at 09: 00 Morphine Sulfate (morphine) 1 mg Q2H PRN IV SEVERE PAIN LEVEL 7-10 Last administered on 02/04/17 08:57; Admin Dose 1 MG; Start 02/01/17 at 06:30 Famotidine (Pepcid) 20 mg Q48H PO Last administered on 02/01/17 09:09; Admin Dose 20 MG; Start 02/01/17 at 09:00 Ondansetron HCl (Zofran Inj) 4 mg Q4H PRN IV NAUSEA AND/OR VOMITING; Start at 06:30 Miscellaneous Information 1 ea NOTE XX ; Start 02/01/17 at 07:00 Glucose (Glutose) 15 gm Q15M PRN PO DECREASED GLUCOSE; Start 02/01/17 at 07:00 Glucose (Glutose) 22.5 gm Q15M PRN PO DECREASED GLUCOSE; Start 02/01/17 at 07: 00 Dextrose (D50w Syringe) 25 ml Q15M PRN IV DECREASED GLUCOSE Last administered on 02/03/17 14:59; Admin Dose 25 ML; Start 02/01/17 at 07:00 Dextrose (D50w Syringe) 50 ml Q15M PRN IV DECREASED GLUCOSE; Start 02/01/17 at 07:00 Glucagon (Glucagen) 1 mg Q15M PRN IM DECREASED GLUCOSE; Start 02/01/17 at 07: 00 Glucose (Glutose) 15 gm Q15M PRN BUCCAL DECREASED GLUCOSE; Start 02/01/17 at 07:00 Losartan Potassium (Cozaar) 50 mg BID PO Last administered on 02/04/17 10:06 ; Admin Dose 50 MG; Start 02/01/17 at 21:00 Insulin Human NPH (Humulin N) 19 unit QAM SC Last administered on 02/03/17 09 :45; Admin Dose 19 UNIT; Start 02/02/17 at 09:00 Miscellaneous Information 10 mcg WEEKLY XX ; Start 02/08/17 at 09:00 Hydralazine HCl (Apresoline) 10 mg Q6H PRN IV ELEVATED BLOOD PRESSURE Last administered on 02/03/17 15:27; Admin Dose 10 MG; Start 02/01/17 at 18:00 Carvedilol (Coreg) 6.25 mg BID PO Last administered on 02/04/17 10:11; Admin Dose 6.25 MG; Start 02/01/17 at 21:00 Nifedipine (Procardia Xl) 60 mg DAILY PO Last administered on 02/03/17 11:54 ; Admin Dose 60 MG; Start 02/03/17 at 09:00 Diagnostic Test (Pha) (Accu-Chek) 1 ea 02 XX Last administered on 02/04/17 02 :19; Admin Dose 1 EA; Start 02/04/17 at 02:00 Ketorolac Tromethamine (Toradol) 15 mg Q6H IV Last administered on 02/04/17 08:06; Admin Dose 15 MG; Start 02/03/17 at 14:30; Stop 02/05/17 at 14:29 EUGENE BURCIAGA Feb 04, 2017 11:35
--- NOTE | 2017-02-04 11:50 | CONS ---
Date/Time of Note Date/Time of Note DATE: 02/04/17 TIME: 11:48 Assessment/Plan Assessment/Plan Additional Assessment/Plan Medium to large pericardial effusion status post pericardiocentesis 02/03/2017 Shortness of breath Preserved ejection fraction End-stage renal disease on hemodialysis Hypertension -Patient status post pericardiocentesis. Initially 650 mL was removed and currently additional 200 mL's and gravity bag. Minimal output with suctioning. Bedside echocardiogram with trivial to small effusion seen. If no further drainage from pericardial drain, would remove. Continue blood pressure control , fluid management via hemodialysis as per our nephrology colleagues. Consultation Date/Type/Reason Admit Date/Time Feb 01, 2017 at 05:00 Initial Consult Date 02/01/17 Type of Consultation: cv Referring Provider: CHRISTINA VILLAR MD 24 HR Interval Summary Free Text/Dictation Denies shortness of breath, overall feeling better. Exam/Review of Systems Vital Signs Vitals Vital Signs Date Time Temp Pulse Resp B/P Pulse Ox O2 Delivery O2 Flow Rate FiO2 02/04/17 11:30 86 18 93 02/04/17 11:00 154/82 Room Air 02/04/17 08:00 98.2 02/04/17 07:41 2.0 Intake and Output 02/03/17 02/03/17 02/04/17 15:00 23:00 07:00 Intake Total 500 ml 650 ml 600 ml Output Total 3500 ml 2500 ml Balance -3000 ml 650 ml -1900 ml Exam No apparent distress Constitutional: alert, obese, oriented Head: normocephalic Respiratory: other (Coarse breath sounds bilaterally, no wheezing) Cardiovascular: other (S1-S2 heard), regular rate and rhythm Gastrointestinal: bowel sounds, non-tender, soft Extremities: edema Results Result Diagram: 02/04/17 0400 02/04/17 0400 Results 24 hrs Laboratory Tests Test 02/03/17 11:56 02/03/17 13:51 02/03/17 14:57 02/03/17 15:18 Bedside Glucose 109 72 184 Body Fluid Type PERICARDIAL Body Fluid Volume 550.0 Body Fluid Color YELLOW Body Fluid Appearance CLOUDY Body Fluid WBC 224 Body Fluid RBC (Auto) 3000 Body Fluid Polynuclear WBCs (%) 4.0 Body Fluid Mononuclear Cells % Auto 96.0 Test 02/03/17 17:30 02/03/17 20:56 02/03/17 20:57 02/03/17 21:15 Bedside Glucose 104 54 L 58 L 62 L Test 02/03/17 21:38 02/03/17 22:49 02/04/17 02:21 02/04/17 04:00 Bedside Glucose 85 146 172 White Blood Count 9.5 Red Blood Count 3.26 L Hemoglobin 9.7 L Hematocrit 30.3 L Mean Corpuscular Volume 92.9 Mean Corpuscular Hemoglobin 29.8 Mean Corpuscular Hemoglobin Concent 32.0 Red Cell Distribution Width 14.6 H Platelet Count 203 Mean Platelet Volume 9.5 Neutrophils % 71.1 Lymphocytes % 9.4 L Monocytes % 7.1 Eosinophils % 11.9 H Basophils % 0.3 Nucleated Red Blood Cells % 0.0 Neutrophils # 6.8 Lymphocytes # 0.9 Monocytes # 0.7 Eosinophils # 1.1 H Basophils # 0.0 Nucleated Red Blood Cells # 0.0 Sodium Level 141 Potassium Level 4.3 Chloride Level 96 L Carbon Dioxide Level 31 Anion Gap 18 H Blood Urea Nitrogen 36 #H Creatinine 6.57 H Glucose Level 147 # Calcium Level 9.1 Phosphorus Level 4.1 Magnesium Level 2.0 Test 02/04/17 10:02 Bedside Glucose 148 Medications Medications Current Medications Aspirin (Halfprin) 81 mg DAILY PO Last administered on 02/04/17 10:06; Admin Dose 81 MG; Start 02/01/17 at 09:00 Clonidine (Catapres) 0.1 mg BID PRN PO ELEVATED BLOOD PRESSURE Last administered on 02/01/17 17:11; Admin Dose 0.1 MG; Start 02/01/17 at 06:00 Multivit/Ca Carb/ B Cmplx/FA/Prenat (Lavern-Mike) 1 tab DAILY PO Last administered on 02/04/17 10:05; Admin Dose 1 TAB; Start 02/01/17 at 09:00 Atorvastatin Calcium (Lipitor) 20 mg QHS PO Last administered on 02/03/17 21: 01; Admin Dose 20 MG; Start 02/01/17 at 21:00 Docusate Sodium (Colace) 100 mg BID PRN PO CONSTIPATION; Start 02/01/17 at 09: 00 Morphine Sulfate (morphine) 1 mg Q2H PRN IV SEVERE PAIN LEVEL 7-10 Last administered on 02/04/17 08:57; Admin Dose 1 MG; Start 02/01/17 at 06:30 Famotidine (Pepcid) 20 mg Q48H PO Last administered on 02/01/17 09:09; Admin Dose 20 MG; Start 02/01/17 at 09:00 Ondansetron HCl (Zofran Inj) 4 mg Q4H PRN IV NAUSEA AND/OR VOMITING; Start at 06:30 Miscellaneous Information 1 ea NOTE XX ; Start 02/01/17 at 07:00 Glucose (Glutose) 15 gm Q15M PRN PO DECREASED GLUCOSE; Start 02/01/17 at 07:00 Glucose (Glutose) 22.5 gm Q15M PRN PO DECREASED GLUCOSE; Start 02/01/17 at 07: 00 Dextrose (D50w Syringe) 25 ml Q15M PRN IV DECREASED GLUCOSE Last administered on 02/03/17 14:59; Admin Dose 25 ML; Start 02/01/17 at 07:00 Dextrose (D50w Syringe) 50 ml Q15M PRN IV DECREASED GLUCOSE; Start 02/01/17 at 07:00 Glucagon (Glucagen) 1 mg Q15M PRN IM DECREASED GLUCOSE; Start 02/01/17 at 07: 00 Glucose (Glutose) 15 gm Q15M PRN BUCCAL DECREASED GLUCOSE; Start 02/01/17 at 07:00 Losartan Potassium (Cozaar) 50 mg BID PO Last administered on 02/04/17 10:06 ; Admin Dose 50 MG; Start 02/01/17 at 21:00 Miscellaneous Information 10 mcg WEEKLY XX ; Start 02/08/17 at 09:00 Hydralazine HCl (Apresoline) 10 mg Q6H PRN IV ELEVATED BLOOD PRESSURE Last administered on 02/03/17 15:27; Admin Dose 10 MG; Start 02/01/17 at 18:00 Carvedilol (Coreg) 6.25 mg BID PO Last administered on 02/04/17 10:11; Admin Dose 6.25 MG; Start 02/01/17 at 21:00 Diagnostic Test (Pha) (Accu-Chek) 1 ea 02 XX Last administered on 02/04/17 02 :19; Admin Dose 1 EA; Start 02/04/17 at 02:00 Ketorolac Tromethamine (Toradol) 15 mg Q6H IV Last administered on 02/04/17t 08:06; Admin Dose 15 MG; Start 02/03/17 at 14:30; Stop 02/05/17 at 14:29 Nifedipine (Procardia Xl) 60 mg DAILY PO ; Start 02/04/17 at 12:30 Miscellaneous Information (* Miscellaneous Pharmacy Order) Discontinue current oral sulfonylur... ONCE ONCE XX ; Start 02/04/17 at 12:00; Stop 02/04/17 at 12:01; Status UNV Insulin Glargine (Lantus) 11 unit DAILY@08 SC ; Start 02/05/17 at 08:00; Status UNV Miscellaneous Information (* Miscellaneous Pharmacy Order) Discontinue all previ... ONCE ONCE XX ; Start 02/04/17 at 12:00; Stop 02/04/17 at 12:01; Status UNV Amari Baez DO Feb 04, 2017 11:50
[2017-02-04] MEDS: NIFEdipine (XL) 60 MG TAB PO SCH (13:32)
--- NOTE | 2017-02-04 13:36 | RADRPT ---
Echocardiogram Report Patient Name: VALERIA MOTLEY Gender: Female Date: 1945 Study Date: 04-Feb-2017 Finish Filer: Janel [facility] Location: [address] Ref. Physician: AMARI BAEZ Quality: Adequate Procedures: Transthoracic echocardiogram examination. Indications: Pericardial Effusion. Findings Left Ventricle: Normal left ventricular systolic function. Right Ventricle: Normal right ventricular systolic function. Right Atrium: The right atrium is normal in size and appearance. Pericardium: Trivial effusion. IVC: Normal inferior vena cava appearance and respiratory collapse. Conclusions 1.Normal left ventricular systolic function. 2.Normal right ventricular systolic function. 3.The right atrium is normal in size and appearance. 4.Trivial effusion. 5.Normal inferior vena cava appearance and respiratory collapse. Electronically Signed By: Amari Baez 04-Feb-2017 13:35:23 -0800 Patient Name: VALERIA MOTLEY Study Date: 04-Feb-2017 [id number]
[2017-02-04] MEDS ORDERED: CEFAZOLIN 1 GM/50 ML (PMX) 50 ML IVPB SCH (15:30)
--- NOTE | 2017-02-04 17:01 | CONS ---
Date/Time of Note Date/Time of Note DATE: 02/04/17 TIME: 16:59 Assessment/Plan Assessment/Plan Additional Assessment/Plan (1) Acute on chronic diastolic congestive heart failure Status: Acute Comment: S/p Dry UF, HD tomorrow (2) ESRD (end stage renal disease) on dialysis Status: Chronic Comment: HD TTS schedule (3) Chest pain Status: Acute Comment: Resolved (4) HTN (hypertension) Status: Chronic Comment: Cont current Rx and plan (5) Acute hyperkalemia Status: Acute Comment: Resolved (6) Anemia due to chronic kidney disease treated with erythropoietin Status: Chronic Comment: S/p KENNEDY, Cont KENNEDY with HD (7) Morbid obesity Status: Chronic (8) Pericardial effusion S/p Pericardiocentesis and removal of drain Dr Baez Cardio Consultation Date/Type/Reason Admit Date/Time Feb 01, 2017 at 05:00 Initial Consult Date 02/01/17 Type of Consultation: Renal Referring Provider: CHRISTINA VILLAR MD 24 HR Interval Summary Free Text/Dictation S/p Pericardiocentesis yesterday. S/p Removal drain. S/p Dry UF Constitutional: requiring O2 Exam/Review of Systems Vital Signs Vitals Vital Signs Date Time Temp Pulse Resp B/P Pulse Ox O2 Delivery O2 Flow Rate FiO2 02/04/17 16:11 86 18 99 Nasal Cannula 2.0 02/04/17 11:00 154/82 02/04/17 08:00 98.2 Intake and Output 02/03/17 02/03/17 02/04/17 15:00 23:00 07:00 Intake Total 500 ml 650 ml 600 ml Output Total 3500 ml 2500 ml Balance -3000 ml 650 ml -1900 ml Exam Constitutional: No distress Head: atraumatic Eyes: EOMI Neck: No jvd Respiratory: clear to auscultation, No labored breathing Cardiovascular: regular rate and rhythm, No edema Gastrointestinal: non-tender, soft Extremities: No edema Neurological: nl mental status, No lethargic Skin: No diaphoresis Results Result Diagram: 02/04/17 0400 02/04/17 0400 Results 24 hrs Laboratory Tests Test 02/03/17 17:30 02/03/17 20:56 02/03/17 20:57 02/03/17 21:15 Bedside Glucose 104 54 L 58 L 62 L Test 02/03/17 21:38 02/03/17 22:49 02/04/17 02:21 02/04/17 04:00 Bedside Glucose 85 146 172 White Blood Count 9.5 Red Blood Count 3.26 L Hemoglobin 9.7 L Hematocrit 30.3 L Mean Corpuscular Volume 92.9 Mean Corpuscular Hemoglobin 29.8 Mean Corpuscular Hemoglobin Concent 32.0 Red Cell Distribution Width 14.6 H Platelet Count 203 Mean Platelet Volume 9.5 Neutrophils % 71.1 Lymphocytes % 9.4 L Monocytes % 7.1 Eosinophils % 11.9 H Basophils % 0.3 Nucleated Red Blood Cells % 0.0 Neutrophils # 6.8 Lymphocytes # 0.9 Monocytes # 0.7 Eosinophils # 1.1 H Basophils # 0.0 Nucleated Red Blood Cells # 0.0 Sodium Level 141 Potassium Level 4.3 Chloride Level 96 L Carbon Dioxide Level 31 Anion Gap 18 H Blood Urea Nitrogen 36 #H Creatinine 6.57 H Glucose Level 147 # Hemoglobin A1c 5.8 Calcium Level 9.1 Phosphorus Level 4.1 Magnesium Level 2.0 Test 02/04/17 10:02 02/04/17 12:36 Bedside Glucose 148 148 Medications Medications Current Medications Aspirin (Halfprin) 81 mg DAILY PO Last administered on 02/04/17 10:06; Admin Dose 81 MG; Start 02/01/17 at 09:00 Clonidine (Catapres) 0.1 mg BID PRN PO ELEVATED BLOOD PRESSURE Last administered on 02/01/17 17:11; Admin Dose 0.1 MG; Start 02/01/17 at 06:00 Multivit/Ca Carb/ B Cmplx/FA/Prenat (Lavern-Mike) 1 tab DAILY PO Last administered on 02/04/17 10:05; Admin Dose 1 TAB; Start 02/01/17 at 09:00 Atorvastatin Calcium (Lipitor) 20 mg QHS PO Last administered on 02/03/17 21: 01; Admin Dose 20 MG; Start 02/01/17 at 21:00 Docusate Sodium (Colace) 100 mg BID PRN PO CONSTIPATION; Start 02/01/17 at 09: 00 Morphine Sulfate (morphine) 1 mg Q2H PRN IV SEVERE PAIN LEVEL 7-10 Last administered on 02/04/17 14:40; Admin Dose 1 MG; Start 02/01/17 at 06:30 Famotidine (Pepcid) 20 mg Q48H PO Last administered on 02/01/17 09:09; Admin Dose 20 MG; Start 02/01/17 at 09:00 Ondansetron HCl (Zofran Inj) 4 mg Q4H PRN IV NAUSEA AND/OR VOMITING; Start at 06:30 Miscellaneous Information 1 ea NOTE XX ; Start 02/01/17 at 07:00 Glucose (Glutose) 15 gm Q15M PRN PO DECREASED GLUCOSE; Start 02/01/17 at 07:00 Glucose (Glutose) 22.5 gm Q15M PRN PO DECREASED GLUCOSE; Start 02/01/17 at 07: 00 Dextrose (D50w Syringe) 25 ml Q15M PRN IV DECREASED GLUCOSE Last administered on 02/03/17 14:59; Admin Dose 25 ML; Start 02/01/17 at 07:00 Dextrose (D50w Syringe) 50 ml Q15M PRN IV DECREASED GLUCOSE; Start 02/01/17 at 07:00 Glucagon (Glucagen) 1 mg Q15M PRN IM DECREASED GLUCOSE; Start 02/01/17 at 07: 00 Glucose (Glutose) 15 gm Q15M PRN BUCCAL DECREASED GLUCOSE; Start 02/01/17 at 07:00 Losartan Potassium (Cozaar) 50 mg BID PO Last administered on 02/04/17 10:06 ; Admin Dose 50 MG; Start 02/01/17 at 21:00 Miscellaneous Information 10 mcg WEEKLY XX ; Start 02/08/17 at 09:00 Hydralazine HCl (Apresoline) 10 mg Q6H PRN IV ELEVATED BLOOD PRESSURE Last administered on 02/03/17 15:27; Admin Dose 10 MG; Start 02/01/17 at 18:00 Carvedilol (Coreg) 6.25 mg BID PO Last administered on 02/04/17 10:11; Admin Dose 6.25 MG; Start 02/01/17 at 21:00 Diagnostic Test (Pha) (Accu-Chek) 1 ea 02 XX Last administered on 02/04/17 02 :19; Admin Dose 1 EA; Start 02/04/17 at 02:00 Ketorolac Tromethamine (Toradol) 15 mg Q6H IV Last administered on 02/04/17 08:06; Admin Dose 15 MG; Start 02/03/17 at 14:30; Stop 02/04/17 at 23:00 Nifedipine (Procardia Xl) 60 mg DAILY PO Last administered on 02/04/17 13:32 ; Admin Dose 60 MG; Start 02/04/17 at 12:30 Insulin Glargine 11 unit 11 unit DAILY@08 SC ; Start 02/05/17 at 08:00 Cefazolin Sodium (Ancef 1 Gm/50 ml (Pmx)) 50 ml @ 100 mls/hr Q24H IVPB Last administered on 02/04/17 15:23; Admin Dose 100 MLS/HR; Start 02/04/17 at 15: 30; Stop 02/05/17 at 15:29 COLLEEN PERAZA MD Feb 04, 2017 17:01
[2017-02-04] MEDS: ATORVASTATIN 20 MG TAB PO SCH (20:57)
[2017-02-05] VITALS (16 sets, daily range): BP systolic 98–147; BP diastolic 47–76; PULSE 73–96; RESP 18–20
[2017-02-05] MEDS: ALBUTEROL/IPRATROPIUM (NEB) 3 ML AMP NEB SCH ×4 (00:11→13:08)
[2017-02-05] MEDS: ACCU-CHEK XX SCH (01:57)
[2017-02-05] MEDS ORDERED: INSULIN GLARGINE [LANtus] 3 ML PEN SC SCH (08:00)
[2017-02-05] MEDS: INSULIN ASPART [NOVOLOG] 3 ML PEN SC SCH ×4 (08:11→12:35)
[2017-02-05 08:28] LABS: BASOPHILS % 0.4 % (0.0-2.0); EOSINOPHILS % 9.7 % (0.0-7.0); HEMATOCRIT 28.8 % (37.0-47.0); HEMOGLOBIN 9.5 g/dl (12.0-16.0); LYMPHOCYTES # 1.3 10^3/ul (0.8-2.9); LYMPHOCYTES % 12.7 % (15.0-51.0); MEAN CORPUSCULAR HEMOGLOBIN 30.2 pg (29.0-33.0); MEAN CORPUSCULAR VOLUME 91.4 fl (82.0-101.0); MEAN PLATELET VOLUME 9.3 fl (7.4-10.4); MONOCYTE # 0.7 10^3/ul (0.3-0.9); MONOCYTES % 6.5 % (0.0-11.0); NEUTROPHIL # 7.2 10^3/ul (1.6-7.5); NEUTROPHILS % 70.4 % (39.0-77.0); PLATELET COUNT 183 10^3/UL (140-415); RED BLOOD COUNT 3.15 10^6/ul (4.20-5.40); RED CELL DISTRIBUTION WIDTH 14.4 % (11.5-14.5); WHITE BLOOD COUNT 10.3 10^3/ul (4.8-10.8)
[2017-02-05] MEDS: NIFEdipine (XL) 60 MG TAB PO SCH (08:33)
[2017-02-05] MEDS: CALCIUM ACETATE 667 MG CAP PO SCH ×2 (08:34→12:12)
[2017-02-05] MEDS: CALCIUM CARBONATE 500 MG CHEW TAB PO SCH ×2 (08:35→12:12)
[2017-02-05] MEDS: SEVELAMER CARBONATE 2.4 GM PKT PO SCH ×2 (08:35→12:13)
[2017-02-05] MEDS: FAMOTIDINE 20 MG TAB PO SCH (08:36)
[2017-02-05] MEDS: ASPIRIN (EC) 81 MG TAB PO SCH (08:36)
[2017-02-05] MEDS: LEVOTHYROXINE 50 MCG TAB PO SCH (08:36)
[2017-02-05] MEDS: MULTIVIT/CA CARB/B CMPLX/FA TAB PO SCH (08:36)
[2017-02-05] MEDS: LOSARTAN 50 MG TAB PO SCH (08:37)
[2017-02-05] MEDS: SEVELAMER CARBONATE 0.8 GM PKT PO SCH ×2 (08:40→12:13)
[2017-02-05 09:00] LABS: CALCIUM 9.7 mg/dl (8.4-10.2); CREATININE 7.15 mg/dl (0.44-1.00); POTASSIUM 3.7 mmol/L (3.5-5.1)
[2017-02-05 09:03] LABS: MAGNESIUM 1.8 mg/dl (1.7-2.5); PHOSPHORUS 3.6 mg/dl (2.5-4.9)
--- NOTE | 2017-02-05 14:15 | PN ---
Date/Time of Note Date/Time of Note DATE: 02/05/17 TIME: 14:08 Assessment/Plan VTE Prophylaxis VTE Prophylaxis Intervention: SCD's Lines/Catheters IV Catheter Type (from Nrsg): Mid Line Central line still needed: Yes (For IV access) Urinary Cath still in place: No Assessment/Plan Assessment/Plan 71-year-old female with: 1. Status post pericardiocentesis for large pericardial effusions with showing signs of impending tamponade on echocardiogram, POD#2 Drain has been removed last night and patient transferred to telemetry. Remained stable this morning, repeat echocardiogram pending for discharge planning. Blood pressure control. Continue other medications. 2. End-stage renal disease, on hemodialysis, 3 times per week. Hyperkalemia resolved. Status post regular/scheduled HD this morning. 3. Acute on chronic diastolic heart failure, on HD. Status post pericardiocentesis. Respiratory status much improved. 4. Hypertension: Better controlled today, continue medications and HD. 5. Chronic anemia secondary to chronic kidney disease, hemoglobin stable, continue to monitor. 6. Diabetes mellitus: Discussed with patient, will verify with her daughter but she reports that she does not take NPH in the morning, she only basically does a sliding scale insulin and seems to give herself 4 units of insulin with breakfast and lunch mainly. We will continue her pre-meal insulin sliding scale insulin for now, with current Lantus dosing, blood sugars have been stable. Continue diabetic/renal diet. A1c 5.8 7. Hypothyroidism: Continue Synthroid 8. Hyperlipidemia: Continue statin therapy 9. Morbid obesity, lifestyle modification, increase ambulation. Prophylaxis: Pepcid for GI prophylaxis, SCDs for DVT prophylaxis Disposition: Follow-up further recommendations from cardiology once 2D echocardiogram done, if stable will discharge home. Subjective 24 Hr Interval Summary Free Text/Dictation Patient remained stable, she status post her scheduled hemodialysis this a.m. Awaiting repeat echocardiogram this morning to reevaluate pericardial effusion, if okay per cardiology will discharge home. Family has requested a referral to outpatient psychiatrist or psychologist as she is noted to be a little depressed apparently at home. Exam/Review of Systems Vital Signs Vitals Vital Signs Date Time Temp Pulse Resp B/P Pulse Ox O2 Delivery O2 Flow Rate FiO2 02/05/17 12:00 73 02/05/17 11:47 98.0 20 140/76 100 02/05/17 08:20 Nasal Cannula 2.0 Intake and Output 02/04/17 02/04/17 02/05/17 15:00 23:00 07:00 Intake Total 240 ml 120 ml 100 ml Output Total 50 ml Balance 240 ml 70 ml 100 ml Exam Constitutional: alert, obese, oriented, well developed Respiratory: clear to auscultation, normal air movement Cardiovascular: nl pulses, regular rate and rhythm Gastrointestinal: non-tender, soft Musculoskeletal: nl extremities to inspection, other (No edema, clubbing or cyanosis) Extremities: normal pulses Neurological: DIRECTOR OF TRAUMA II-XII intact, nl mental status, nl speech, nl strength (At baseline) Results Result Diagram: 02/05/17 0807 02/05/17 0807 Results 24 hrs Laboratory Tests Test 02/04/17 17:48 02/04/17 21:03 02/05/17 01:56 02/05/17 07:44 Bedside Glucose 114 117 138 145 Test 02/05/17 08:07 02/05/17 12:19 White Blood Count 10.3 Red Blood Count 3.15 L Hemoglobin 9.5 L Hematocrit 28.8 L Mean Corpuscular Volume 91.4 Mean Corpuscular Hemoglobin 30.2 Mean Corpuscular Hemoglobin Concent 33.0 Red Cell Distribution Width 14.4 Platelet Count 183 Mean Platelet Volume 9.3 Neutrophils % 70.4 Lymphocytes % 12.7 L Monocytes % 6.5 Eosinophils % 9.7 H Basophils % 0.4 Nucleated Red Blood Cells % 0.0 Neutrophils # 7.2 Lymphocytes # 1.3 Monocytes # 0.7 Eosinophils # 1.0 H Basophils # 0.0 Nucleated Red Blood Cells # 0.0 Sodium Level 142 Potassium Level 3.7 Chloride Level 97 Carbon Dioxide Level 32 H Anion Gap 17 H Blood Urea Nitrogen 29 H Creatinine 7.15 H Glucose Level 159 Calcium Level 9.7 Phosphorus Level 3.6 Magnesium Level 1.8 Bedside Glucose 109 Medications Medications Current Medications Aspirin (Halfprin) 81 mg DAILY PO Last administered on 02/05/17 08:36; Admin Dose 81 MG; Start 02/01/17 at 09:00 Clonidine (Catapres) 0.1 mg BID PRN PO ELEVATED BLOOD PRESSURE Last administered on 02/01/17 17:11; Admin Dose 0.1 MG; Start 02/01/17 at 06:00 Multivit/Ca Carb/ B Cmplx/FA/Prenat (Lavern-Mike) 1 tab DAILY PO Last administered on 02/05/17 08:36; Admin Dose 1 TAB; Start 02/01/17 at 09:00 Atorvastatin Calcium (Lipitor) 20 mg QHS PO Last administered on 02/04/17 20: 57; Admin Dose 20 MG; Start 02/01/17 at 21:00 Docusate Sodium (Colace) 100 mg BID PRN PO CONSTIPATION; Start 02/01/17 at 09: 00 Morphine Sulfate (morphine) 1 mg Q2H PRN IV SEVERE PAIN LEVEL 7-10 Last administered on 02/04/17 14:40; Admin Dose 1 MG; Start 02/01/17 at 06:30 Famotidine (Pepcid) 20 mg Q48H PO Last administered on 02/05/17 08:36; Admin Dose 20 MG; Start 02/01/17 at 09:00 Ondansetron HCl (Zofran Inj) 4 mg Q4H PRN IV NAUSEA AND/OR VOMITING; Start at 06:30 Miscellaneous Information 1 ea NOTE XX ; Start 02/01/17 at 07:00 Glucose (Glutose) 15 gm Q15M PRN PO DECREASED GLUCOSE; Start 02/01/17 at 07:00 Glucose (Glutose) 22.5 gm Q15M PRN PO DECREASED GLUCOSE; Start 02/01/17 at 07: 00 Dextrose (D50w Syringe) 25 ml Q15M PRN IV DECREASED GLUCOSE Last administered on 02/03/17 14:59; Admin Dose 25 ML; Start 02/01/17 at 07:00 Dextrose (D50w Syringe) 50 ml Q15M PRN IV DECREASED GLUCOSE; Start 02/01/17 at 07:00 Glucagon (Glucagen) 1 mg Q15M PRN IM DECREASED GLUCOSE; Start 02/01/17 at 07: 00 Glucose (Glutose) 15 gm Q15M PRN BUCCAL DECREASED GLUCOSE; Start 02/01/17 at 07:00 Losartan Potassium (Cozaar) 50 mg BID PO Last administered on 02/05/17 08:37 ; Admin Dose 50 MG; Start 02/01/17 at 21:00 Miscellaneous Information 10 mcg WEEKLY XX ; Start 02/08/17 at 09:00 Hydralazine HCl (Apresoline) 10 mg Q6H PRN IV ELEVATED BLOOD PRESSURE Last administered on 02/03/17 15:27; Admin Dose 10 MG; Start 02/01/17 at 18:00 Carvedilol (Coreg) 6.25 mg BID PO Last administered on 02/05/17 08:34; Admin Dose 6.25 MG; Start 02/01/17 at 21:00 Diagnostic Test (Pha) (Accu-Chek) 1 ea 02 XX Last administered on 02/05/17 01 :57; Admin Dose 1 EA; Start 02/04/17 at 02:00 Nifedipine (Procardia Xl) 60 mg DAILY PO Last administered on 02/05/17 08:33 ; Admin Dose 60 MG; Start 02/04/17 at 12:30 Insulin Glargine 11 unit 11 unit DAILY@08 SC Last administered on 02/05/17 10 :27; Admin Dose 11 UNIT; Start 02/05/17 at 08:00 Cefazolin Sodium (Ancef 1 Gm/50 ml (Pmx)) 50 ml @ 100 mls/hr Q24H IVPB Last administered on 02/04/17 15:23; Admin Dose 100 MLS/HR; Start 02/04/17 at 15: 30; Stop 02/05/17 at 15:29 EUGENE BURCIAGA Feb 05, 2017 14:15
--- NOTE | 2017-02-05 14:46 | PDOCDIS ---
Discharge Instructions CONDITION Patient Condition: Stable HOME CARE INSTRUCTIONS: Special Diet: Renal Diet ACTIVITY: Activity Restrictions: Slowly Increase Activity FOLLOW UP/APPOINTMENTS Follow-up Plan Follow-up with outpatient agency legal counsel, resume outpatient dialysis schedule T/T/ S Follow-up with primary care physician within 1-2 weeks Follow-up with cardiology, Dr Baez's group outpatient within 1-2 weeks. Referral to outpatient psychologist and psychiatry per family request as patient may be developing some depression per family. EUGENE BURCIAGA Feb 05, 2017 14:46
[2017-02-05] MEDS ORDERED: NIFE60TA7 PO (14:49)
[2017-02-05] MEDS ORDERED: CARV6.2579 PO (14:49)
[2017-02-05] MEDS ORDERED: CALC667C PO (14:51)
[2017-02-05] MEDS ORDERED: CALC200T26 PO (14:51)
[2017-02-05] MEDS ORDERED: ICNREG IJ (14:57)
[2017-02-05] MEDS ORDERED: LANT3I SC (14:57)
[2017-02-05] MEDS ORDERED: ACETAMINOPHEN 325 MG TAB PO PRN (15:00)
--- NOTE | 2017-02-05 15:19 | CONS ---
Date/Time of Note Date/Time of Note DATE: 02/05/17 TIME: 15:15 Consult Date/Type/Reason Admit Date/Time Feb 01, 2017 at 05:00 Initial Consult Date 02/01/17 Type of Consultation: CV Ordering Provider: EUGENE BURCIAGA Subjective CARDIOLOGY FOLLOW UP NOTE for DR Jamar Reilly: Discussed with the staff and rhythm strip was reviewed. Patient remained in sinus rhythm. Discussed with Discussed with multiple family members at the bedside. Patient is breathing better denies any chest pain or pressure to me. Objective: General: Obese female no acute distress HEENT: NC/AT. pupils are equal. round. NECK: NO JVD. no stridor. CV: RRR. systolic murmur; no gallop or rubs. PULM: no wheezing or rhonchi. GI: SOFT, NT, ND, no rebound or guarding Extremity: trace B/L LE edema. no clubbing. neuro: awake and alert, OX3. Psych: calm and pleasant rectal: deferred Objective Vital Signs Date Time Temp Pulse Resp B/P Pulse Ox O2 Delivery O2 Flow Rate FiO2 02/05/17 12:00 73 02/05/17 11:47 98.0 20 140/76 100 02/05/17 08:20 Nasal Cannula 2.0 Intake and Output 02/04/17 02/04/17 02/05/17 15:00 23:00 07:00 Intake Total 240 ml 120 ml 100 ml Output Total 50 ml Balance 240 ml 70 ml 100 ml Results/Medications Result Diagram: 02/05/17 0807 02/05/17 0807 Results 24 hrs Laboratory Tests Test 02/04/17 17:48 02/04/17 21:03 02/05/17 01:56 02/05/17 07:44 Bedside Glucose 114 117 138 145 Test 02/05/17 08:07 02/05/17 12:19 White Blood Count 10.3 Red Blood Count 3.15 L Hemoglobin 9.5 L Hematocrit 28.8 L Mean Corpuscular Volume 91.4 Mean Corpuscular Hemoglobin 30.2 Mean Corpuscular Hemoglobin Concent 33.0 Red Cell Distribution Width 14.4 Platelet Count 183 Mean Platelet Volume 9.3 Neutrophils % 70.4 Lymphocytes % 12.7 L Monocytes % 6.5 Eosinophils % 9.7 H Basophils % 0.4 Nucleated Red Blood Cells % 0.0 Neutrophils # 7.2 Lymphocytes # 1.3 Monocytes # 0.7 Eosinophils # 1.0 H Basophils # 0.0 Nucleated Red Blood Cells # 0.0 Sodium Level 142 Potassium Level 3.7 Chloride Level 97 Carbon Dioxide Level 32 H Anion Gap 17 H Blood Urea Nitrogen 29 H Creatinine 7.15 H Glucose Level 159 Calcium Level 9.7 Phosphorus Level 3.6 Magnesium Level 1.8 Bedside Glucose 109 Medications Current Medications Aspirin (Halfprin) 81 mg DAILY PO Last administered on 02/05/17 08:36; Admin Dose 81 MG; Start 02/01/17 at 09:00 Clonidine (Catapres) 0.1 mg BID PRN PO ELEVATED BLOOD PRESSURE Last administered on 02/01/17 17:11; Admin Dose 0.1 MG; Start 02/01/17 at 06:00 Multivit/Ca Carb/ B Cmplx/FA/Prenat (Lavern-Mike) 1 tab DAILY PO Last administered on 02/05/17 08:36; Admin Dose 1 TAB; Start 02/01/17 at 09:00 Atorvastatin Calcium (Lipitor) 20 mg QHS PO Last administered on 02/04/17 20: 57; Admin Dose 20 MG; Start 02/01/17 at 21:00 Docusate Sodium (Colace) 100 mg BID PRN PO CONSTIPATION; Start 02/01/17 at 09: 00 Morphine Sulfate (morphine) 1 mg Q2H PRN IV SEVERE PAIN LEVEL 7-10 Last administered on 02/04/17 14:40; Admin Dose 1 MG; Start 02/01/17 at 06:30 Famotidine (Pepcid) 20 mg Q48H PO Last administered on 02/05/17 08:36; Admin Dose 20 MG; Start 02/01/17 at 09:00 Ondansetron HCl (Zofran Inj) 4 mg Q4H PRN IV NAUSEA AND/OR VOMITING; Start at 06:30 Miscellaneous Information 1 ea NOTE XX ; Start 02/01/17 at 07:00 Glucose (Glutose) 15 gm Q15M PRN PO DECREASED GLUCOSE; Start 02/01/17 at 07:00 Glucose (Glutose) 22.5 gm Q15M PRN PO DECREASED GLUCOSE; Start 02/01/17 at 07: 00 Dextrose (D50w Syringe) 25 ml Q15M PRN IV DECREASED GLUCOSE Last administered on 02/03/17 14:59; Admin Dose 25 ML; Start 02/01/17 at 07:00 Dextrose (D50w Syringe) 50 ml Q15M PRN IV DECREASED GLUCOSE; Start 02/01/17 at 07:00 Glucagon (Glucagen) 1 mg Q15M PRN IM DECREASED GLUCOSE; Start 02/01/17 at 07: 00 Glucose (Glutose) 15 gm Q15M PRN BUCCAL DECREASED GLUCOSE; Start 02/01/17 at 07:00 Losartan Potassium (Cozaar) 50 mg BID PO Last administered on 02/05/17 08:37 ; Admin Dose 50 MG; Start 02/01/17 at 21:00 Miscellaneous Information 10 mcg WEEKLY XX ; Start 02/08/17 at 09:00 Hydralazine HCl (Apresoline) 10 mg Q6H PRN IV ELEVATED BLOOD PRESSURE Last administered on 02/03/17 15:27; Admin Dose 10 MG; Start 02/01/17 at 18:00 Carvedilol (Coreg) 6.25 mg BID PO Last administered on 02/05/17 08:34; Admin Dose 6.25 MG; Start 02/01/17 at 21:00 Diagnostic Test (Pha) (Accu-Chek) 1 ea 02 XX Last administered on 02/05/17 01 :57; Admin Dose 1 EA; Start 02/04/17 at 02:00 Nifedipine (Procardia Xl) 60 mg DAILY PO Last administered on 02/05/17 08:33 ; Admin Dose 60 MG; Start 02/04/17 at 12:30 Insulin Glargine 11 unit 11 unit DAILY@08 SC Last administered on 02/05/17 10 :27; Admin Dose 11 UNIT; Start 02/05/17 at 08:00 Cefazolin Sodium (Ancef 1 Gm/50 ml (Pmx)) 50 ml @ 100 mls/hr Q24H IVPB Last administered on 02/04/17 15:23; Admin Dose 100 MLS/HR; Start 02/04/17 at 15: 30; Stop 02/05/17 at 15:29 Acetaminophen (Tylenol Tab) 650 mg Q6H PRN PO PAIN AND OR ELEVATED TEMP Last administered on 02/05/17 14:55; Admin Dose 650 MG; Start 02/05/17 at 15:00 Assessment/Plan Chief Complaint/Hosp Course Medium to large pericardial effusion status post pericardiocentesis 02/03/2017 Shortness of breath End-stage renal disease on hemodialysis Hypertension Anemia Recommendation: Continue hemodialysis. Continue with her current cardiac care. Outpatient follow-up with Dr. Jamar andrews MD Problems: JESENIA ANDREWS MD Feb 05, 2017 15:19
--- NOTE | 2017-02-05 16:32 | CONS ---
Date/Time of Note Date/Time of Note DATE: 02/05/17 TIME: 16:32 Assessment/Plan Assessment/Plan Problems: (1) Pericarditis Status: Acute Comment: s/p pericardiectomy (2) Morbid obesity Status: Chronic (3) ESRD (end stage renal disease) on dialysis Status: Chronic Comment: Pt on HD TTS (4) CHF (congestive heart failure), NYHA class IV Status: Resolved (5) HTN (hypertension) Status: Resolved Qualifiers: Hypertension type: essential hypertension Qualified Code: I10 - Essential hypertension Additional Assessment/Plan DC plans noted, pt will be followed at dialysis ctr closely. Consultation Date/Type/Reason Admit Date/Time Feb 01, 2017 at 05:00 Initial Consult Date 02/01/17 Type of Consultation: renal Referring Provider: EUGENE BURCIAGA 24 HR Interval Summary Free Text/Dictation Pt is lying comfortably in bed Exam/Review of Systems Vital Signs Vitals Vital Signs Date Time Temp Pulse Resp B/P Pulse Ox O2 Delivery O2 Flow Rate FiO2 02/05/17 16:11 98.0 74 20 98/48 97 02/05/17 08:20 Nasal Cannula 2.0 Intake and Output 02/04/17 02/04/17 02/05/17 15:00 23:00 07:00 Intake Total 240 ml 120 ml 100 ml Output Total 50 ml Balance 240 ml 70 ml 100 ml Exam Pt seen while she was getting dialysis. Constitutional: alert, oriented, well developed Psych: nl mood/affect, no complaints Head: atraumatic, normocephalic Eyes: EOMI, PERRL, nl conjunctiva, nl lids, nl sclera ENMT: nl external ears & nose, nl lips & teeth, nl nasal mucosa & septum Neck: non-tender, supple Respiratory: clear to auscultation, normal air movement Cardiovascular: nl pulses, regular rate and rhythm Gastrointestinal: nl liver, spleen, non-tender, soft Musculoskeletal: nl extremities to inspection, nl gait and stance Extremities: normal pulses, other (lt arm avf in place) Neurological: COKEMAN II-XII intact, nl mental status, nl speech, nl strength Skin: nl turgor, other (pale), No rash or lesions Lymph: nl lymph nodes Results Result Diagram: 02/05/17 0807 02/05/17 0807 Results 24 hrs Laboratory Tests Test 02/04/17 17:48 02/04/17 21:03 02/05/17 01:56 02/05/17 07:44 Bedside Glucose 114 117 138 145 Test 02/05/17 08:07 02/05/17 12:19 White Blood Count 10.3 Red Blood Count 3.15 L Hemoglobin 9.5 L Hematocrit 28.8 L Mean Corpuscular Volume 91.4 Mean Corpuscular Hemoglobin 30.2 Mean Corpuscular Hemoglobin Concent 33.0 Red Cell Distribution Width 14.4 Platelet Count 183 Mean Platelet Volume 9.3 Neutrophils % 70.4 Lymphocytes % 12.7 L Monocytes % 6.5 Eosinophils % 9.7 H Basophils % 0.4 Nucleated Red Blood Cells % 0.0 Neutrophils # 7.2 Lymphocytes # 1.3 Monocytes # 0.7 Eosinophils # 1.0 H Basophils # 0.0 Nucleated Red Blood Cells # 0.0 Sodium Level 142 Potassium Level 3.7 Chloride Level 97 Carbon Dioxide Level 32 H Anion Gap 17 H Blood Urea Nitrogen 29 H Creatinine 7.15 H Glucose Level 159 Calcium Level 9.7 Phosphorus Level 3.6 Magnesium Level 1.8 Bedside Glucose 109 Medications Medications Current Medications Aspirin (Halfprin) 81 mg DAILY PO Last administered on 02/05/17 08:36; Admin Dose 81 MG; Start 02/01/17 at 09:00 Clonidine (Catapres) 0.1 mg BID PRN PO ELEVATED BLOOD PRESSURE Last administered on 02/01/17 17:11; Admin Dose 0.1 MG; Start 02/01/17 at 06:00 Multivit/Ca Carb/ B Cmplx/FA/Prenat (Lavern-Mike) 1 tab DAILY PO Last administered on 02/05/17 08:36; Admin Dose 1 TAB; Start 02/01/17 at 09:00 Atorvastatin Calcium (Lipitor) 20 mg QHS PO Last administered on 02/04/17 20: 57; Admin Dose 20 MG; Start 02/01/17 at 21:00 Docusate Sodium (Colace) 100 mg BID PRN PO CONSTIPATION; Start 02/01/17 at 09: 00 Morphine Sulfate (morphine) 1 mg Q2H PRN IV SEVERE PAIN LEVEL 7-10 Last administered on 02/04/17 14:40; Admin Dose 1 MG; Start 02/01/17 at 06:30 Famotidine (Pepcid) 20 mg Q48H PO Last administered on 02/05/17 08:36; Admin Dose 20 MG; Start 02/01/17 at 09:00 Ondansetron HCl (Zofran Inj) 4 mg Q4H PRN IV NAUSEA AND/OR VOMITING; Start at 06:30 Miscellaneous Information 1 ea NOTE XX ; Start 02/01/17 at 07:00 Glucose (Glutose) 15 gm Q15M PRN PO DECREASED GLUCOSE; Start 02/01/17 at 07:00 Glucose (Glutose) 22.5 gm Q15M PRN PO DECREASED GLUCOSE; Start 02/01/17 at 07: 00 Dextrose (D50w Syringe) 25 ml Q15M PRN IV DECREASED GLUCOSE Last administered on 02/03/17 14:59; Admin Dose 25 ML; Start 02/01/17 at 07:00 Dextrose (D50w Syringe) 50 ml Q15M PRN IV DECREASED GLUCOSE; Start 02/01/17 at 07:00 Glucagon (Glucagen) 1 mg Q15M PRN IM DECREASED GLUCOSE; Start 02/01/17 at 07: 00 Glucose (Glutose) 15 gm Q15M PRN BUCCAL DECREASED GLUCOSE; Start 02/01/17 at 07:00 Losartan Potassium (Cozaar) 50 mg BID PO Last administered on 02/05/17 08:37 ; Admin Dose 50 MG; Start 02/01/17 at 21:00 Miscellaneous Information 10 mcg WEEKLY XX ; Start 02/08/17 at 09:00 Hydralazine HCl (Apresoline) 10 mg Q6H PRN IV ELEVATED BLOOD PRESSURE Last administered on 02/03/17 15:27; Admin Dose 10 MG; Start 02/01/17 at 18:00 Carvedilol (Coreg) 6.25 mg BID PO Last administered on 02/05/17 08:34; Admin Dose 6.25 MG; Start 02/01/17 at 21:00 Diagnostic Test (Pha) (Accu-Chek) 1 ea 02 XX Last administered on 02/05/17 01 :57; Admin Dose 1 EA; Start 02/04/17 at 02:00 Nifedipine (Procardia Xl) 60 mg DAILY PO Last administered on 02/05/17 08:33 ; Admin Dose 60 MG; Start 02/04/17 at 12:30 Insulin Glargine (Lantus) 11 unit DAILY@08 SC Last administered on 02/05/17 10:27; Admin Dose 11 UNIT; Start 02/05/17 at 08:00 Acetaminophen (Tylenol Tab) 650 mg Q6H PRN PO PAIN AND OR ELEVATED TEMP Last administered on 02/05/17 14:55; Admin Dose 650 MG; Start 02/05/17 at 15:00 MELISSA QUINONES MD Feb 05, 2017 16:32
[2017-02-08] MEDS ORDERED: DARBEPOETIN ALFA IN POLYSORBAT XX SCH (09:00)
--- NOTE | 2017-02-08 16:55 | RADRPT ---
Echocardiogram Report Patient Name: VALERIA MOTLEY Gender: Female Date: 1945 Study Date: 05-Feb-2017 Mortgage Loan Coordinator: Jan[facility] Location: [address] Ref. Physician: MIREYA BURCIAGA Quality: Adequate Procedures: Transthoracic echocardiogram with complete 2D, M-Mode, and doppler examination. Indications: repeat echo for effusion. 2D/M Mode Doppler Measurement Value Normal Ranges Measurement Value Normal Ranges LVIDd 2D 5.1 3.5 - 5.6 cm AV Mean Joni 1.5 m/sec LVIDs 2D 3.3 2.1 - 4.1 cm AV Mean PG 11.0 mmHg FS 2D 34.8 % AV Peak Joni 2.3 m/sec LVPWd 2D 1.5 0.6 - 1.1 cm AV Peak PG 22.0 mmHg IVSd 2D 1.5 0.6 - 1.1 cm AV VTI 40.5 cm IVS/LVPW 2D 1.0 LVOT Peak Joni 1.5 m/sec AoR Diam 2D 2.2 2.0 - 3.7 cm LVOT Peak PG 9.0 mmHg LA/Ao 2D 2 0 - 1 MV E Peak Joni 0.9 m/sec EDV 2D 133.0 cm3 MV A Peak Joni 1.1 m/sec ESV 2D 36.9 cm3 MV E/A 0.8 LA Dimen 2D 4.1 2.3 - 4.0 cm MV Decel Time 208 msec MV E/A 0.8 TR Peak Joni 2.5 m/sec TR Peak PG 24.0 mmHg RVSP 34.0 mmHg Findings Left Ventricle: Normal left ventricular systolic function. Normal left ventricular cavity size. Moderate concentric left ventricular hypertrophy. Ejection fraction is visually estimated at 65 %. Tissue Doppler/Mitral Doppler indices are consistent with impaired relaxation (Stage I diastolic dysfunction). Right Ventricle: Normal right ventricular size. Normal right ventricular systolic function. Left Atrium: There is mild enlargement of left atrium. Right Atrium: The right atrium is normal in size. Mitral Valve: Mild mitral leaflet calcification. Mild mitral annular calcification. Trace mitral regurgitation. Aortic Valve: Normal appearance of the aortic valve. No significant aortic stenosis or insufficiency. Tricuspid Valve: Normal appearance of the tricuspid valve. Estimated peak PA systolic pressure 34 mmHg. There is mild tricuspid regurgitation. Pulmonic Valve: Pulmonic valve not well visualized. There is trace pulmonic regurgitation. Pericardium: Trivial pericardial effusion. Aorta: Normal aortic root. IVC: Normal size and normal respiratory collapse consistent with normal right atrial pressure. Conclusions 1.Trivial pericardial effusion. Electronically Signed By: Mook Quezada 08-Feb-2017 16:54:50 -0800 Patient Name: VALERIA MOTLEY Study Date: 05-Feb-2017 [id number]
== END 2017-02-05 16:50 | disposition home health service (06) | DRG 291 ==
LOC: E/R 01:02 → MS3 05:00 → MS4 20:44 → ICU 02-03 16:35 → TEL 02-04 22:30
PROVIDERS: ADMIT Hospitalist; ATTEND Hospitalist
PROC: 5A1D70Z Performance of Urinary Filtration, Intermittent, Less than 6 Hours Per Day (ICD-10-PCS; 2017-02-01)
PROC: 0W9D30Z Drainage of Pericardial Cavity with Drainage Device, Percutaneous Approach (ICD-10-PCS; principal; 2017-02-03 12:00)
PROC: B24CZZ4 Ultrasonography of Pericardium, Transesophageal (ICD-10-PCS; 2017-02-04)
DX: I13.2 Hypertensive heart and chronic kidney disease with heart failure and with stage 5 chronic kidney disease, or end stage renal disease (principal); I50.33 Acute on chronic diastolic (congestive) heart failure; I31.3 Pericardial effusion (noninflammatory); N18.6 End stage renal disease; E87.5 Hyperkalemia; E66.01 Morbid (severe) obesity due to excess calories; D63.8 Anemia in other chronic diseases classified elsewhere; Z68.33 Body mass index [BMI] 33.0-33.9, adult; I16.0 Hypertensive urgency; R07.89 Other chest pain; Z99.2 Dependence on renal dialysis; R10.32 Left lower quadrant pain
CPT/HCPCS: 33010; 36415; 71010; 80048; 80053; 80061; 80069; 82330; 82550; 82553; 82728; 82962; 83036; 83540; 83735; 83880; 83970; 84100; 84443; 84484; 84560; 85025; 87070; 87081; 87102; 87116; 89051; 90935; 93005; 93306; 93308; 94640; 94664; 96374; 96375; 97162; J0360; J0690; J1815; J1885; J2250; J2270; J2405; J3010

== ENCOUNTER 2017-10-18 11:21 | Emergency (ER) | END 2017-10-18 12:14 | disposition home or self-care (01) ==